=== PATIENT | female | born 1975 | race Caucasian/White ===

== ENCOUNTER 2017-02-28 21:10 | Emergency (ER) | payer OTHER ==
[~2017-02-28] VITALS: Ht 165.1 cm; Wt 85.3 kg
[~2017-02-28 21:10] MED LIST: ABILIFY 10 MG10 MG PO; ADDERALL10 MG PO; ALPRAZOLAM1 MG PO; AMOXIL500 MG PO; BUSPIRONE HCL15 MG PO; CLINDAMYCIN HY300 MG PO; CLONAZEPAM0.5 MG PO; COGENTIN2 MG/2 ML PO; GABAPENTIN300 M2 PO; GEODON 40MG CAP40 MG PO; HALDOL DEC100 MG/1 M IM; HALDOL5 MG/1 ML PO; LAMICTAL200 M1 PO; LAMICTAL25 M1 PO; LAMOTRIGINE200 MG PO; LATUDA40 MG PO; LITHIUM CARBON300 M3 PO; OLANZAPINE20 MG PO; PERCOCET 325 MG1 TA2 PO; VALACYCLOVIR1 GM PO; VENLAFAXINE HCL25 MG PO; VIIBRYD40 MG PO; XANAX2 MG PO
--- NOTE | 2017-02-28 23:22 | ED HEADACHE COMPLAINT ---
History of Present Illness General Chief Complaint: General Adult Stated Complaint: PT SAYS SHE HAS A ANEURYSM ON THE BRAIN Source: patient, old records Exam Limitations: no limitations Vital Signs & Intake/Output Vital Signs & Intake/Output Vital Signs Date Time Temp Pulse Resp B/P B/P Pulse O2 O2 Flow FiO2 Mean Ox Delivery Rate 02/28 2350 97.2 95 18 145/69 96 02/28 2124 99.0 105 16 150/95 99 Room Air ED Intake and Output 03/01 0000 02/28 1200 Intake Total Output Total Balance Patient 188 lb Weight Weight Reported by Patient Measurement Method Allergies Uncoded Allergies: DOG SHAMPOO (HIVES AND ITCHING ALL OVER 03/31/15) Reconcile Medications Benztropine Mesylate (Cogentin) (Unknown Strength) AMPUL (Unknown Dose) PO DAILY MENTAL HEALTH (Reported) Gabapentin 300 MG CAPSULE 1 CAP PO Q6 MENTAL HEALTH (Reported) Haloperidol Decanoate (Haldol Decanoate 100) (Unknown Strength) AMPUL (Unknown Dose) IM Q30D MENTAL HEALTH (Reported) Haloperidol Lactate (Haldol) 5 MG/1 ML AMPUL 5 MG PO BID MENTAL HEALTH ( Reported) Lamotrigine (Lamictal) 25 MG TABLET 50 MG PO MENTAL HEALTH (Reported) Dunn Carbonate (Dunn Carbonate 300MG Tab.) 300 MG CAPSULE 1 TAB PO BID BIPOLAR (Reported) Triage Note: TRIAGE: PT TO ED 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 NEUROLOGIST IS DR MAYER, PMD IS DR SHER. C/O BLURRY VISION APPROX 1 HOUR AGO AGAIN REPORTS SEEING COLORED CLUSTERS OF LIGHTS. 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 REPORTS NUMBNESS TO R LEG EARLIER. ABLE TO WALK. SPEAKS IN FULL CLEAR SENTENCES. NEUROS INTACT, PUPILS 3MM AND EQUAL AND REACTIVE TO LIGHT. +PHOTOSENSITIVITY. ALSO CONCERNED OF HYPOGLYCEMIA, ACCUCHECK 91 IN TRIAGE. PT ANXIOUS Triage Nurses Notes Reviewed? yes : No Patient currently breastfeeds: No HPI: Patient states that she has been suffering from a headache for the past 2 days. The pain starts in the back of her head and wraps around to the front. Patient is seeing different colors. There is slight nausea but no vomiting. No fevers or chills. Patient took Fioricet without any relief. Similar symptoms in the past when she's had migraines. Patient did become concerned because she has known AVM on the zaheer and she has not had an MRI of her brain in the past 5 years. Past History Travel History Traveled to [place] past 21 day No Medical History Any Pertinent Medical History? 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 . Hx Contributory? No Review of Systems Review of Systems Constitutional: Reports: no symptoms. Eyes: Reports: see HPI, other (SEEING COLORS). Ears, Nose, Throat, Mouth: Reports: no symptoms. Respiratory: Reports: no symptoms. Cardiovascular: Reports: no symptoms. Gastrointestinal/Abdominal: Reports: see HPI, nausea. Genitourinary: Reports: no symptoms. Musculoskeletal: Reports: neck pain (SWELLING). Skin: Reports: no symptoms. Neurological/Psychological: Reports: see HPI, headache. Hematologic/Endocrine: Reports: no symptoms. Endocrine: Reports: no symptoms. Immunologic/Allergic: Reports: no symptoms. All Other Systems: Reviewed and Negative Physical Exam Physical Exam General Appearance: well developed/nourished, alert, awake, anxious, mild distress Head: atraumatic, normal appearance Eyes: Bilateral: PERRL, EOMI. Ears, Nose, Throat: normal pharynx, normal ENT inspection, hearing grossly normal Neck: normal inspection, supple, full range of motion, NO MENENGEAL SIGNS Respiratory: normal breath sounds, chest non-tender, no respiratory distress, lungs clear Cardiovascular: regular rate/rhythm, normal peripheral pulses Gastrointestinal: normal bowel sounds, soft, non-tender, no organomegaly Back: normal inspection, normal range of motion Extremities: normal inspection, normal capillary refill, normal range of motion, no edema Psychiatric: awake, alert, oriented x 3 Cranial Nerves: normal hearing, normal speech, PERRL Coordination/Gait: normal gait Motor/Sensory: no motor/sensory deficits Skin: intact, normal color, warm/dry Core Measures Severe Sepsis Present: No Septic Shock Present: No Progress Differential Diagnosis: IC mass/tumor, intracranial Hem., migraine ROLLINS, tension ROLLINS Plan of Care: Laboratory Tests 02/28/17 2319: CBC w Diff Cancelled, WBC Cancelled, RBC Cancelled, Hgb Cancelled, Hct Cancelled , MCV Cancelled, MCH Cancelled, RDW Cancelled, Plt Count Cancelled, MPV Cancelled, PUBS MCHC Cancelled, Dunn Cancelled Diagnostic Imaging: Viewed by Me: CT Scan. Discussed w/RAD: CT Scan. Comments: Patient is feeling much better after IM Toradol. Patient does not want blood work. Patient promises to follow up with her neurologist. Departure Departure Disposition: HOME OR SELF CARE Condition: Stable Clinical Impression Primary Impression: Migraine Qualifiers: Migraine type: with aura Status migrainosus presence: without status migrainosus Intractability: not intractable Qualified Code: G43.109 - Migraine with aura, not intractable, without status migrainosus Referrals: NIKKY MANZO,ADALBERTO Cai (PCP/Family) Additional Instructions: FOLLOW UP WITH YOUR NEUROLOGIST RETURN FOR ANY CONCERNS Departure Forms: Customer Survey General Discharge Information
[2017-02-28 23:50] VITALS: BP 145/69
--- NOTE | 2017-02-28 23:55 | CT SCAN REPORT ---
EXAMINATION: CT HEAD WITHOUT CONTRAST CLINICAL INFORMATION: AVM on nico, rule out bleed COMPARISON: 11/21/2028 TECHNIQUE: Contiguous axial imaging was performed from the skull base to vertex without intravenous administration of contrast. DLP: 529.16 mGy-cm FINDINGS: There is no evidence of acute intracranial hemorrhage or territorial infarction. No abnormal mass effect or midline shift is seen. Yuan to white matter differentiation is well preserved. No extra-axial fluid collections are identified. The ventricles are normal in size. There is a subtle tiny ill-defined hyperdensity in the nico measuring approximately 4 mm on image 12/56, potentially representing a small vascular malformation. The osseous structures and soft tissues are normal. There is extensive opacification of the visualized right maxillary sinus and anterior ethmoid air cells. The mastoid air cells are well-aerated. IMPRESSION: No acute intracranial hemorrhage identified. Small ill-defined hyperdensity in the nico may reflect a vascular malformation; comparison with any prior or follow-up MRI would be helpful for further assessment.
== END 2017-02-28 23:52 ==
LOC: ERH 21:10
DX: G43.909 Migraine, unspecified, not intractable, without status migrainosus (principal)
CPT/HCPCS: 96374; J1885

== ENCOUNTER 2017-03-10 06:55 | Emergency (ER) | payer OTHER ==
--- NOTE | 2017-03-10 07:13 | ED HEADACHE COMPLAINT ---
History of Present Illness General Chief Complaint: Headache Stated Complaint: ?ROLLINS X 9 DAYS Source: patient, old records Exam Limitations: no limitations Vital Signs & Intake/Output Vital Signs & Intake/Output Vital Signs Date Time Temp Pulse Resp B/P B/P Pulse O2 O2 Flow FiO2 Mean Ox Delivery Rate 03/10 0754 95.7 90 18 124/84 97 Room Air 03/10 0700 96.7 77 20 155/100 98 Allergies Uncoded Allergies: DOG SHAMPOO (HIVES AND ITCHING ALL OVER 03/31/15) Reconcile Medications Albuterol Sulfate (Proair Hfa) 90 MCG HFA.AER.AD 2 PUF INH Q4-6 PRN PRN ASTHMA Benztropine Mesylate (Cogentin) (Unknown Strength) AMPUL (Unknown Dose) PO DAILY MENTAL HEALTH (Reported) Gabapentin 300 MG CAPSULE 1 CAP PO Q6 MENTAL HEALTH (Reported) Haloperidol Decanoate (Haldol Decanoate 100) (Unknown Strength) AMPUL (Unknown Dose) IM Q30D MENTAL HEALTH (Reported) Haloperidol Lactate (Haldol) 5 MG/1 ML AMPUL 5 MG PO BID MENTAL HEALTH ( Reported) Lamotrigine (Lamictal) 25 MG TABLET 50 MG PO MENTAL HEALTH (Reported) [place]stack Carbonate ([place]stack Carbonate 300MG Tab.) 300 MG CAPSULE 1 TAB PO BID BIPOLAR (Reported) Triage Note: PER PT MIGRAINE X 9 DAYS RADIATING TO MOUTH AND FACE. Triage Nurses Notes Reviewed? yes : No Patient currently breastfeeds: No HPI: Patient presents with a throbbing aching headache to the posterior portion of her head from front to the front of her head. The pain is been constant for the past 9 days. Patient was seen in the emergency Department 10 days ago and received a shot of Toradol and she states that took the pain away within the pain came back the next day. Patient has an appointment to see her neurologist next week. Patient is due to have an MRA. Patient ran out of her Vicodin. There are no fevers or chills. There are no aggravating or mitigating factors. There is no photophobia. There is no phonophobia. There is no nausea or vomiting. The pain is constant. Past History Travel History Traveled to [place] past 21 day No Medical History Any Pertinent Medical History? 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 . Hx Contributory? No Review of Systems Review of Systems Constitutional: Reports: no symptoms. Eyes: Reports: no symptoms. Ears, Nose, Throat, Mouth: Reports: no symptoms. Respiratory: Reports: no symptoms. Cardiovascular: Reports: no symptoms. Gastrointestinal/Abdominal: Reports: no symptoms. Musculoskeletal: Reports: no symptoms. Neurological/Psychological: Reports: see HPI, headache. Hematologic/Endocrine: Reports: no symptoms. Immunologic/Allergic: Reports: no symptoms. Physical Exam Physical Exam General Appearance: well developed/nourished, alert, awake, mild distress Head: atraumatic, normal appearance Eyes: Bilateral: PERRL, EOMI. Ears, Nose, Throat: normal pharynx, normal ENT inspection, hearing grossly normal Neck: normal inspection, supple, full range of motion Respiratory: normal breath sounds, chest non-tender, no respiratory distress, lungs clear Cardiovascular: regular rate/rhythm, normal peripheral pulses Back: normal inspection, normal range of motion Psychiatric: awake, alert, oriented x 3 Cranial Nerves: normal hearing, normal speech, PERRL Coordination/Gait: normal gait Core Measures Severe Sepsis Present: No Septic Shock Present: No Progress Differential Diagnosis: intracranial Hem., migraine ROLLINS, subarach. Hem., tension ROLLINS Plan of Care: Current Medications Sig/Yaneth Start time Last Medication Dose Stop Time Status Admin Ketorolac 60 MG ONCE ONE 03/10 715 UNVr Tromethamine 03/10 716 (Toradol) Comments: PAIN DECREASED TO 3 OUT OF 10 POST IM TORADOL. Departure Departure Disposition: HOME OR SELF CARE Condition: Stable Clinical Impression Primary Impression: Headache Referrals: TARIK MANUEL MD (PCP/Family) Additional Instructions: RETURN IF SYMPTOMS WORSEN OR FOR ANY CONCERNS Departure Forms: Customer Survey General Discharge Information Prescriptions: Current Visit Scripts Albuterol Sulfate (Proair Hfa) 2 PUF INH Q4-6 PRN PRN ASTHMA #1 INHAL
[2017-03-10 07:54] VITALS: BP 124/84
[2017-03-10] MEDS ORDERED: PROAIR HFA8.5 GM INH (07:54)
== END 2017-03-10 08:12 ==
LOC: ERH 06:55
DX: R51 Headache (principal)
CPT/HCPCS: 96372; J1885

== ENCOUNTER 2017-03-12 16:58 | Emergency (ER) | payer OTHER ==
[~2017-03-12] VITALS: Ht 165.1 cm; Wt 86.2 kg
[~2017-03-12 16:58] MED LIST changes: +PROAIR HFA8.5 GM INH
[2017-03-12 17:06] VITALS: BP 131/81
--- NOTE | 2017-03-12 19:08 | ED GENERAL ADULT ---
History of Present Illness General Chief Complaint: General Adult Stated Complaint: SOB, ZANAX WITHDRAWAL Source: patient Exam Limitations: no limitations Vital Signs & Intake/Output Vital Signs & Intake/Output Vital Signs Date Time Temp Pulse Resp B/P B/P Pulse O2 O2 Flow FiO2 Mean Ox Delivery Rate 03/12 1706 97.6 81 16 131/81 97 Room Air ED Intake and Output 03/13 0000 03/12 1200 Intake Total Output Total Balance Patient 190 lb Weight Weight Reported by Patient Measurement Method Allergies Uncoded Allergies: DOG SHAMPOO (HIVES AND ITCHING ALL OVER 03/31/15) Reconcile Medications Albuterol Sulfate (Proair Hfa) 90 MCG HFA.AER.AD 2 PUF INH Q4-6 PRN PRN wheeze Albuterol Sulfate (Proair Hfa) 90 MCG HFA.AER.AD 2 PUF INH Q4-6 PRN PRN ASTHMA Alprazolam (Xanax) 1 MG TABLET 1 TAB PO TIDPRN PRN anxiety ten...[id number] Amoxicillin/Potassium Clav (Augmentin 875-125 Tablet) 875 MG-125 MG TABLET 1 TAB PO BID bronchitis Benztropine Mesylate (Cogentin) (Unknown Strength) AMPUL (Unknown Dose) PO DAILY MENTAL HEALTH (Reported) Cyclobenzaprine HCl 10 MG TABLET 1 TAB PO 4 TIMES/DAY PRN MUSCLE SPASM twenty Gabapentin 300 MG CAPSULE 1 CAP PO Q6 MENTAL HEALTH (Reported) Haloperidol Decanoate (Haldol Decanoate 100) (Unknown Strength) AMPUL (Unknown Dose) IM Q30D MENTAL HEALTH (Reported) Haloperidol Lactate (Haldol) 5 MG/1 ML AMPUL 5 MG PO BID MENTAL HEALTH ( Reported) Ibuprofen 600 MG TABLET 1 TAB PO TID PRN pain with food Lamotrigine (Lamictal) 25 MG TABLET 50 MG PO MENTAL HEALTH (Reported) Saxton Carbonate (Saxton Carbonate 300MG Tab.) 300 MG CAPSULE 1 TAB PO BID BIPOLAR (Reported) Prednisone 50 MG TABLET 1 TAB PO DAILY bronchitis Triage Note: PT REPORTS HER RIGHT SIDE OF HER BODY IS GETTING WEAK SHE FEELS LIKE SHE CAN'T BREATH AND SHE HAS NAUSEA AND BLURRY VISION. PT STATES SHE THINKS SHE IS IN XANANX WITHDRAWEL. Triage Nurses Notes Reviewed? yes Onset: Gradual Duration: hour(s): Timing: recent history Injury Environment: home Severity: mild, moderate Modifying Factors: Improves With: rest. Associated Symptoms: AGITATION : No Patient currently breastfeeds: No HPI: 41 -year-old gentleman brought in by police with a concern for benzo and opioid withdrawal. The patient states that he last took Xanax 2 days ago. He also had been using methadone and heroin. He states his last use of those substances was late last week. He states that he is, "jumping out of my skin." He notes photophobia, myalgia, mild diaphoresis and nausea. He denies SI or HI hallucinations seizures Past History Travel History Traveled to [place] past 21 day No Medical History Any Pertinent Medical History? 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 . Hx Contributory? No Review of Systems Review of Systems Constitutional: Reports: no symptoms. EENTM: Reports: no symptoms. Respiratory: Reports: no symptoms. Cardiovascular: Reports: no symptoms. GI: Reports: no symptoms. Genitourinary: Reports: no symptoms. Musculoskeletal: Reports: no symptoms. Skin: Reports: no symptoms. Neurological/Psychological: Reports: no symptoms. Hematologic/Endocrine: Reports: no symptoms. Immunologic/Allergic: Reports: no symptoms. All Other Systems: Reviewed and Negative Physical Exam Physical Exam General Appearance: well developed/nourished, mild distress Head: atraumatic, normal appearance Eyes: Bilateral: normal appearance, PERRL, EOMI. Ears, Nose, Throat: normal pharynx, normal ENT inspection Neck: normal inspection, supple, full range of motion Respiratory: normal breath sounds, chest non-tender, no respiratory distress, quiet respiration, lungs clear Cardiovascular: regular rate/rhythm Gastrointestinal: normal bowel sounds, soft, non-tender Back: normal inspection Extremities: normal capillary refill, normal range of motion, no edema, ERYTHEMATOUS RAISED RASH CONSISTENT WITH CONTACT DERMATITIS OF HIS ( LATERAL FOREARMS.) Neurologic/Psych: no motor/sensory deficits, awake, alert, oriented x 3 Skin: intact, normal color Core Measures ACS in differential dx? No CVA/TIA Diagnosis: No Severe Sepsis Present: No Septic Shock Present: No Progress Differential Diagnoses I considered the following diagnoses in my evaluation of the patient: Benzo versus opiate withdrawal versus other Plan of Care: Patient given one dose of long-acting benzodiazepine, Librium, patient also given clonidine Zofran. He also notes that he has a mild case of poison miguel a on his bilateral arms. One dose of Benadryl was given for his itching. Patient to return if his symptoms recur. Initial ED EKG: none Departure Departure Disposition: HOME OR SELF CARE Condition: Stable Clinical Impression Primary Impression: Heroin withdrawal Secondary Impressions: Benzodiazepine withdrawal, Poison miguel a dermatitis Referrals: TARIK MANUEL MD (PCP/Family) Departure Forms: Customer Survey General Discharge Information Prescriptions: Current Visit Scripts Alprazolam (Xanax) 1 TAB PO TIDPRN PRN anxiety #10 TAB ten...[id number] Prednisone 1 TAB PO DAILY #5 TAB Amoxicillin/Potassium Clav (Augmentin 875-125 Tablet) 1 TAB PO BID #20 TAB Cyclobenzaprine HCl 1 TAB PO 4 TIMES/DAY PRN MUSCLE SPASM #20 TAB Ref 1 twenty Ibuprofen 1 TAB PO TID PRN pain #30 TAB with food Albuterol Sulfate (Proair Hfa) 2 PUF INH Q4-6 PRN PRN wheeze #1 INHAL Ref 2 Critical Care Note Critical Care Note Critical Care Time: non-applicable
[2017-03-12] MEDS ORDERED: CYCLOBENZAPRINE10 M1 PO (19:21)
[2017-03-12] MEDS ORDERED: IBUPROFEN600 M1 PO (19:21)
[2017-03-12] MEDS ORDERED: XANAX1 M1 PO (19:21)
[2017-03-12] MEDS ORDERED: PREDNISONE50 M1 PO (19:21)
[2017-03-12] MEDS ORDERED: PROAIR HFA8.5 GM INH (19:21)
[2017-03-12] MEDS ORDERED: AUGMENTIN 875-1 EACH PO (19:21)
== END 2017-03-12 19:36 ==
LOC: ERH 16:58
DX: F11.23 Opioid dependence with withdrawal (principal); F13.239 Sedative, hypnotic or anxiolytic dependence with withdrawal, unspecified; L23.7 Allergic contact dermatitis due to plants, except food

== ENCOUNTER 2017-03-15 13:02 | Emergency (ER) | payer OTHER ==
[~2017-03-15] VITALS: Ht 167.6 cm; Wt 72.6 kg
[~2017-03-15 13:02] MED LIST changes: +AUGMENTIN 875-1 EACH PO; +CYCLOBENZAPRINE10 M1 PO; +IBUPROFEN600 M1 PO; +PREDNISONE50 M1 PO; +XANAX1 M1 PO
[2017-03-15 13:32] VITALS: BP 126/79
== END 2017-03-15 14:55 | disposition admitted as inpatient to this hospital (09) ==
LOC: ERH 13:02
DX: F41.0 Panic disorder [episodic paroxysmal anxiety] (principal); Z53.21 Procedure and treatment not carried out due to patient leaving prior to being seen by health care provider

== ENCOUNTER 2017-03-28 02:39 | Emergency (ER) | payer OTHER ==
[~2017-03-28] VITALS: Ht 165.1 cm; Wt 88.5 kg
--- NOTE | 2017-03-28 02:48 | ED DYSPNEA/ASTHMA COMPLAINT ---
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 Source: patient, old records Exam Limitations: no limitations Vital Signs & Intake/Output Vital Signs & Intake/Output Vital Signs Date Time Temp Pulse Resp B/P B/P Pulse O2 O2 Flow FiO2 Mean Ox Delivery Rate 03/28 0556 97.5 72 18 131/84 95 Nasal 2.0L Cannula 03/28 0532 96.9 79 18 137/78 95 Nasal 2.0L Cannula 03/28 0351 77 18 89 Room Air 03/28 0301 92 03/28 0300 96 Room Air 03/28 0246 96.7 100 20 145/97 96 Room Air Allergies Uncoded Allergies: DOG SHAMPOO (HIVES AND ITCHING ALL OVER 03/31/15) Reconcile Medications Albuterol Sulfate (Proair Hfa) 90 MCG HFA.AER.AD 2 PUF INH Q4-6 PRN PRN ASTHMA Lamotrigine (Lamictal) 25 MG TABLET 50 MG PO MENTAL HEALTH (Reported) Prednisone 50 MG TABLET 1 TAB PO DAILY bronchitis Ziprasidone Hydrochloride (Geodon) 20 MG CAPSULE 1 CAP PO BID BIPOLAR ( Reported) Triage Note: TRIAGE: PATIENT REPORTS BRONCHITIS X 3 WEEKS W/ COUGHING, TONIGHT "VERY SOB." +SMOKER. PATIENT ANXIOUS IN TRIAGE, REPORTS HX ANXIETY. NOTED W/ COUGHING IN TRIAGE. PATIENT CURRENTLY TAKING PREDNISONE X 5 DAYS, USING ADVAIR AND ALBUTEROL W/O RELIEF. Triage Nurses Notes Reviewed? yes : No Patient currently breastfeeds: No HPI: Patient comes to the emergency Department with complaints of shortness of breath and wheezing. Patient has been seen a few times over the past 2 weeks and diagnosed with bronchitis. Patient continues to smoke. Patient states that she has been using her nebulizer at home. Patient states that she found some leftover prednisone so took 1 pill earlier today. Positive chest tightness but no chest pain. Positive dyspnea on exertion. No orthopnea. No fevers or chills. Productive cough with yellow sputum. No nausea or vomiting. No headache. Past History Travel History Traveled to [place] past 21 day No Medical History Any Pertinent Medical History? see below for history Neurological: AVM EENT: NONE Cardiovascular: NONE Respiratory: NONE Gastrointestinal: HYPOGLYCEMIA Hepatic: NONE Renal: NONE Musculoskeletal: NONE Psychiatric: anxiety, bipolar disease Endocrine: Hypoglycemia Blood Disorders: NONE Cancer(s): NONE SIGNAL TESTER/Reproductive: NONE History of MRSA: No History of VRE: No History of CDIFF: No Tetanus Vaccine: 07/23/16 Surgical History Surgical History: none, N Psychosocial History Who do you live with Mother What is your primary language Yakut Tobacco Use: Current Daily Use Daily Tobacco Use Amount/Type: => 5 Cigarettes daily ETOH Use: denies use Illicit Drug Use: denies illicit drug use Family History Family History, If Any: FATHER (Father CAD- 1st diagnosed in 40s; Mother and Sister alive & well; GM with DM). . Hx Contributory? No Review of Systems Review of Systems Constitutional: Reports: no symptoms. EENTM: Reports: no symptoms. Respiratory: Reports: see HPI, cough, short of breath, sputum production, wheezing. Cardiovascular: Reports: no symptoms. GI: Reports: no symptoms. Genitourinary: Reports: no symptoms. Musculoskeletal: Reports: no symptoms. Skin: Reports: no symptoms. Neurological/Psychological: Reports: no symptoms. Hematologic/Endocrine: Reports: no symptoms. Immunologic/Allergic: Reports: no symptoms. All Other Systems: Reviewed and Negative Physical Exam Physical Exam General Appearance: well developed/nourished, alert, awake, anxious, moderate distress Head: atraumatic, normal appearance Eyes: Bilateral: PERRL, EOMI. Ears, Nose, Throat: normal pharynx, normal ENT inspection Neck: normal inspection, supple, full range of motion Respiratory: normal breath sounds, chest non-tender, no respiratory distress, lungs clear Cardiovascular: regular rate/rhythm, normal peripheral pulses Gastrointestinal: normal bowel sounds, soft, non-tender, no organomegaly Extremities: normal inspection, normal capillary refill, normal range of motion, no edema Neurologic/Psych: no motor/sensory deficits, awake, alert, oriented x 3, normal mood/affect Skin: intact, normal color, warm/dry Lymphatic: no anterior cervical iker Core Measures ACS in differential dx? No Severe Sepsis Present: No Septic Shock Present: No Progress Differential Diagnosis: asthma, bronchitis, COPD, pulmonary embolism, pneumonia, pneumothorax Plan of Care: Orders Procedure Date/time Status HUMAN BETA HCG SCREEN 03/28 247 Complete D-DIMER 03/28 247 Complete COMPREHENSIVE METABOLIC PANEL 03/28 247 Complete CBC WITHOUT DIFFERENTIAL 03/28 247 Complete Current Medications Sig/Yaneth Start time Last Medication Dose Stop Time Status Admin Prednisone 40 MG ONCE ONE 03/28 0300 CAN 03/28 030 Laboratory Tests 03/28/17 0421: D-Dimer 323 H 03/28/17 0347: Anion Gap 7, Estimated GFR > 60, BUN/Creatinine Ratio 20.0, Glucose 92, Calcium 9.1, Total Bilirubin 0.6, AST 13 L, ALT 26, Alkaline Phosphatase 62, Total Protein 6.5, Albumin 3.6, Globulin 2.9, Albumin/Globulin Ratio 1.2, Total Beta HCG NEGATIVE, CBC w Diff MAN DIFF ORDERED, RBC 4.37, MCV 95.3, MCH 31.6 H, RDW 14.7 H, MPV 7.5, Gran % 56.4, Lymphocytes % 25.9, Monocytes % 4.0, Eosinophils % 9.5 H, Basophils % 4.2 H, Absolute Granulocytes 9.3 H, Segmented Neutrophils 55, Absolute Lymphocytes 4.3 H, Lymphocytes 32, Monocytes 5, Absolute Monocytes 0.7 H, Eosinophils 8 H, Absolute Eosinophils 1.6, Absolute Basophils 0.7, Platelet Estimate ADEQUATE, Polychromasia 1+, Ovalocytes FEW, PUBS MCHC 33.2, Fld Total RBCs Counted 100 Diagnostic Imaging: Viewed by Me: CT Scan. Discussed w/RAD: CT Scan. Radiology Impression: PATIENT: DAVID STRE[address] PRESENT AGE: 41 PATIENT ACCOUNT NO: [id number] : 74 LOCATION: [facility] ORDERING PHYSICIAN: YONATAN PEREZ MD SERVICE DATE: 03/28/17 EXAM TYPE: CAT - CTA CHEST-PULMONARY EMBOLISM EXAMINATION: CT ANGIOGRAM OF THE CHEST WITH AND WITHOUT CONTRAST (CT PULMONARY ANGIOGRAM FOR PE) CLINICAL INFORMATION: Shortness of breath, wheeze, chest pain. Positive d-dimer. COMPARISON: Chest radiograph TECHNIQUE: Prior to contrast administration, noncontrast localization images were obtained. Subsequently, multidetector volumetric imaging was performed from the thoracic inlet to below the diaphragms following the administration of 84 mL Optiray 350 intravenous contrast. No contrast reaction reported. Sagittal, coronal, and MIP oblique sagittal reformatted images were obtained on the CT workstation, uploaded to PACS, and reviewed. Total exam dose- length product 448 mGy-cm. FINDINGS: QUALITY OF STUDY/CONTRAST BOLUS: Satisfactory PULMONARY ARTERIES: No central or segmental pulmonary emboli. THORACIC AORTA: No aneurysm or dissection. LUNG: The central airways are patent. Mild paraseptal emphysema in the right upper lobe. There is dependent consolidative and groundglass opacity bilaterally at the lung bases. Linear atelectasis in the lingula.. PLEURA: No pleural effusion or pneumothorax. MEDIASTINUM: Normal heart size. No pericardial effusion. No hilar or mediastinal lymphadenopathy. No evidence of septal bowing or right heart strain. CHEST WALL/ AXILLA: No axillary or internal mammary lymphadenopathy. OSSEOUS STRUCTURES: No acute or suspicious osseous abnormality. Mild degenerative changes. UPPER ABDOMEN: Unremarkable. IMPRESSION: 1. No pulmonary embolism. 2. Dependent groundglass and consolidative opacities in both lungs favor subsegmental atelectasis. Infectious process is fully excluded. VTE: negative DICTATED BY: GISELE DUFF MD DATE/TIME DICTATED:03/28/17542 SIDER MECHANIC: FABY DATE/TIME TRANSCRIBED:03/28/17542 CONFIDENTIAL, DO NOT COPY WITHOUT APPROPRIATE AUTHORIZATION. <Electronically signed in Other Vendor System> SIGNED BY: GISELE DUFF MD 03/28/17 0550 Initial ED EKG: none Comments: Patient is feeling much better. Patient just finished a course of Augmentin yesterday. Patient is stable for discharge. Departure Departure Disposition: HOME OR SELF CARE Condition: Stable Clinical Impression Primary Impression: Bronchitis Referrals: TARIK MANUEL MD (PCP/Family) Additional Instructions: RETURN IF SYMPTOMS WORSEN OR FOR ANY CONCERNS Departure Forms: Customer Survey General Discharge Information Critical Care Note Critical Care Note Critical Care Time: non-applicable
[2017-03-28] MEDS ORDERED: GEODON20 M1 PO (02:49)
[2017-03-28 03:53] LABS: ABSOLUTE BASOPHIL COUNT 0.7 /CUMM (0.0-0.2); ABSOLUTE EOSINOPHIL COUNT 1.6 /CUMM (0.0-0.7); ABSOLUTE GRANULOCYTE CT 9.3 /CUMM (1.4-6.5); ABSOLUTE LYMPH COUNT 4.3 /CUMM (1.2-3.4); ABSOLUTE MONOCYTE COUNT 0.7 /CUMM (0.10-0.60); BASOPHIL % 4.2 % (0.0-2.0); EOSINOPHIL % 9.5 % (0-5); GRANULOCYTE % 56.4 % (42.2-75.2); HEMATOCRIT 41.7 % (37-47); MEAN CORPUSCULAR HGB 31.6 PG (27.0-31.0); MEAN CORPUSCULAR HGB CONC 33.2 G/DL (33.0-37.0); MEAN CORPUSCULAR VOLUME 95.3 FL (81.0-99.0); MEAN PLATELET VOLUME 7.5 FL (7.4-10.4); PLATELET COUNT 316 /CUMM (130-400); RBC DISTRIBUTION WIDTH 14.7 % (11.5-14.5); RED BLOOD CELL CT 4.37 /CUMM (4.20-5.40); WHITE BLOOD CELL COUNT 16.5 /CUMM (4.8-10.8)
--- NOTE | 2017-03-28 05:50 | CT SCAN REPORT ---
EXAMINATION: CT ANGIOGRAM OF THE CHEST WITH AND WITHOUT CONTRAST (CT PULMONARY ANGIOGRAM FOR PE) CLINICAL INFORMATION: Shortness of breath, wheeze, chest pain. Positive d-dimer. COMPARISON: Chest radiograph 07/26/2014 TECHNIQUE: Prior to contrast administration, noncontrast localization images were obtained. Subsequently, multidetector volumetric imaging was performed from the thoracic inlet to below the diaphragms following the administration of 84 mL Optiray 350 intravenous contrast. No contrast reaction reported. Sagittal, coronal, and MIP oblique sagittal reformatted images were obtained on the CT workstation, uploaded to PACS, and reviewed. Total exam dose-length product 448 mGy-cm. FINDINGS: QUALITY OF STUDY/CONTRAST BOLUS: Satisfactory PULMONARY ARTERIES: No central or segmental pulmonary emboli. THORACIC AORTA: No aneurysm or dissection. LUNG: The central airways are patent. Mild paraseptal emphysema in the right upper lobe. There is dependent consolidative and groundglass opacity bilaterally at the lung bases. Linear atelectasis in the lingula.. PLEURA: No pleural effusion or pneumothorax. MEDIASTINUM: Normal heart size. No pericardial effusion. No hilar or mediastinal lymphadenopathy. No evidence of septal bowing or right heart strain. CHEST WALL/AXILLA: No axillary or internal mammary lymphadenopathy. OSSEOUS STRUCTURES: No acute or suspicious osseous abnormality. Mild degenerative changes. UPPER ABDOMEN: Unremarkable. IMPRESSION: 1. No pulmonary embolism. 2. Dependent groundglass and consolidative opacities in both lungs favor subsegmental atelectasis. Infectious process is fully excluded. VTE: negative
[2017-03-28 05:56] VITALS: BP 131/84
== END 2017-03-28 06:19 ==
LOC: ERH 02:39
PROVIDERS: Emergency Medicine
DX: J40 Bronchitis, not specified as acute or chronic (principal); F17.210 Nicotine dependence, cigarettes, uncomplicated
CPT/HCPCS: 1263; 1395; J2930

== ENCOUNTER 2017-04-26 17:52 | Inpatient (IN) | payer OTHER ==
[~2017-04-26] VITALS: Ht 157.5 cm; Wt 85.7 kg
[~2017-04-26 17:52] MED LIST changes: +GEODON20 M1 PO
--- NOTE | 2017-04-26 17:55 | ED PSYCHIATRIC COMPLAINT ---
See Addendum History of Present Illness General Chief Complaint: Psychiatric Related Complaint Stated Complaint: BIBA +SI Source: patient, EMS, police Exam Limitations: no limitations Vital Signs & Intake/Output Vital Signs & Intake/Output Vital Signs Date Time Temp Pulse Resp B/P B/P Pulse O2 O2 Flow FiO2 Mean Ox Delivery Rate 04/27 0716 96.1 84 18 137/92 97 Room Air 04/27 0017 96.8 91 20 146/88 98 Room Air 04/26 2240 980.2 88 18 142/74 99 Room Air 04/26 2204 95 04/26 2005 Room Air 04/26 1837 96.9 115 20 160/100 95 Room Air Allergies Coded Allergies: haloperidol (From HALDOL) ("seizure like coma sleep" 04/26/17) Uncoded Allergies: DOG SHAMPOO (HIVES AND ITCHING ALL OVER 03/31/15) Reconcile Medications Albuterol Sulfate (Proair Hfa) 90 MCG HFA.AER.AD 2 PUF INH Q4-6 PRN PRN ASTHMA Lamotrigine (Lamictal) 25 MG TABLET 50 MG PO MENTAL HEALTH (Reported) Prednisone 50 MG TABLET 1 TAB PO DAILY bronchitis Ziprasidone Hydrochloride (Geodon) 20 MG CAPSULE 1 CAP PO BID BIPOLAR ( Reported) Triage Nurses Notes Reviewed? yes Onset: Abrupt Duration: hour(s): (2-3), continues in ED, getting worse Timing: single episode today Severity: mild, moderate Associated Symptoms: anxiety, suicidal ideation LMP (ages 10-50): unknown : No Patient currently breastfeeds: No HPI: 41-year-old female history of bipolar disorder brought in by ambulance and police for evaluation of aggressive behavior. Police reports that patient was at work's behaving very hyperactive and aggressive. 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 Patient has a history of bipolar disorder and reports that she currently feels manic. She denies any drug use, alcohol use or any other associated symptoms. patient reports that she feels completely fine and thinks that her reaction was due to drinking too much coffee however she does repeatedly say that she feels manic. She denies any previous suicide attempts. No chest pain, shortness of breath, abdominal pain, urinary symptoms or any other associated symptoms. (RAUDEL DENTON PA-C) Past History Travel History Traveled to [place] past 21 day No Medical History Any Pertinent Medical History? 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 . Hx Contributory? Yes (RAUDEL DENTON PA-C) Review of Systems Review of Systems Constitutional: Reports: no symptoms. EENTM: Reports: no symptoms. Respiratory: Reports: no symptoms. Cardiovascular: Reports: no symptoms. GI: Reports: no symptoms. Genitourinary: Reports: no symptoms. Musculoskeletal: Reports: no symptoms. Skin: Reports: no symptoms. Neurological/Psychological: Reports: see HPI, anxiety, emotional problems, other (nikolas). Hematologic/Endocrine: Reports: no symptoms. Immunologic/Allergic: Reports: no symptoms. All Other Systems: Reviewed and Negative (RAUDEL DENTON PA-C) Physical Exam Physical Exam General Appearance: well developed/nourished, no apparent distress, alert, awake , anxious Neurological/Psychiatric: no motor/sensory deficits, awake, alert, anxious, hyperactive, fidgeting Appearance/Memory/Insight: appropriate appearance, appropriate insight, denies illness, neat Behavoir/Eye Contact/Speech: cooperative, increased rate of speech, good eye contact Thoughts/Hallucinations: normal thought pattern, no apparent hallucination Comments: General: Hemodynamically stable. Afebrile. Well-developed well-nourished person in no acute distress. Head: Atraumatic, normocephalic Eyes: EOMI bilaterally, PERRLA, conjunctiva are not injected, no discharge, no nystagmus, fundus grossly normal bilaterally Nose: Atraumatic, no rhinorrhea, mucosa is not erythematous, no epistaxis. Sinuses are non-tender Ears: TM pearly [place] color bilaterally, external canal is clear, no discharge, hearing is normal Mouth: Appropriate dentition, no gingival bleeding, moist mucus membranes, no oral lesions, tonsils not erythematous or enlarged and free of exudate. Uvula rises midline. Neck: Supple, full active ROM, no lymphadenopathy, no midline tenderness to palpation, no thyromegaly, no tracheal deviation. Back: Non-tender, full active ROM, no scoliosis, no CVA tenderness Cardiovascular: regular rate and rhythm, no murmurs, rubs, or gallops. No JVD Respiratory: Chest is nontender. Regular respiratory rate and effort. No accessory muscle use. Lungs clear to auscultation bilaterally. Abdomen: Soft, non-tender, non-distended, no organomegaly. No rebound tenderness or guarding. Normoactive bowel sounds. Extremities: No edema. No gross deformities. No joint swelling. No calf swelling or tenderness. Full active and passive ROM. Strength 5/5 in upper and lower extremities. Peripheral pulses 2+ bilaterally, Patellar DTR 2+ Neuro: No confusion. Motor and sensory function is intact. Appropriate gait. Cerebellar function intact. Skin: Warm and dry. Appropriate turgor. No lesions or bruising. No appreciable rash on exposed skin. SAD PERSONS Done? patient not suicidal (pt denies si) (BERTIN RICO,RAUDEL) Progress Differential Diagnosis: dementia, drug intoxication, drug overdose, drug withdrawal, electrolyte abnormality, encephalitis, hypothyroidism, bipolar disorder, depression, anxiety disorder Plan of Care: Orders Procedure Date/time Status Regular Diet 04/27 B Active Continuous Observation Monitor 04/26 1804 Active URINE 04/26 1804 Complete URINE DRUG SCREEN FOR ER ONLY 04/26 1804 Complete URINALYSIS 04/26 1804 Complete ETHANOL 04/26 1804 Complete COMPREHENSIVE METABOLIC PANEL 04/26 1804 Complete CBC WITHOUT DIFFERENTIAL 04/26 1804 Complete ED CRISIS PSYCH CONSULT 04/26 1804 Active Current Medications Sig/Yaneth Start time Last Medication Dose Stop Time Status Admin Lorazepam 2 MG ONCE ONE 04/27 0900 UNVr (Ativan) 04/27 09 Haloperidol 0 .STK-MED ONE 04/26 1953 CAN (Haldol) Lorazepam 1 MG ONCE ONE 04/26 1945 CAN (Ativan) 04/26 1946 Laboratory Tests 04/26/171932: Urine Opiates Screen < 100.00, Methadone Screen < 40, Barbiturate Screen > 800 H, Ur Phencyclidine Scrn < 6.00, Amphetamines Screen 120, U Benzodiazepines Scrn < 85, Urine Cocaine Screen < 50, Urine Cannabis Screen 79.90 H, Urine Color YEL , Urine Clarity HAZY H, Urine pH 6.0, Ur Specific [place] 1.015, Urine Protein NEG, Urine Ketones NEG, Urine Nitrite NEG, Urine Bilirubin NEG, Urine Urobilinogen 0.2, Ur Leukocyte Esterase NEG, Ur Microscopic SEDIMENT EXAMINED, Urine RBC 5-10 H, Ur Epithelial Cells MANY H, Urine Bacteria RARE H, Urine Hemoglobin LARGE H, Urine Glucose NEG, Urine Test NEGATIVE 04/26/17 1830: Anion Gap 9, Estimated GFR > 60, BUN/Creatinine Ratio 14.4, Glucose 103 H, Calcium 9.9, Total Bilirubin 0.3, AST 20, ALT 31, Alkaline Phosphatase 63, Total Protein 7.1, Albumin 4.2, Globulin 2.9, Albumin/Globulin Ratio 1.4, CBC w Diff NO MAN DIFF REQ, RBC 4.60, MCV 94.6, MCH 31.3 H, RDW 14.4, MPV 7.7, Gran % 57.4 , Lymphocytes % 33.7, Monocytes % 6.0, Eosinophils % 2.7, Basophils % 0.2, Absolute Granulocytes 7.5 H, Absolute Lymphocytes 4.4 H, Absolute Monocytes 0.8 H, Absolute Eosinophils 0.3, Absolute Basophils 0, PUBS MCHC 33.1, Serum Alcohol < 10.0 Patient will have basic blood work and urine to clear her for crisis evaluation. Patient is being papered by police. Continuous observation monitor ordered. Crisis consult put in. We'll follow up on lab results. 7:41 PM: Patient is becoming increasingly agitated and is pacing around the room. She has been flashing people in the hallway repeatedly yelling out. She is unable to sit still and his current constantly playing with inserts in the room. She'll be given 2 of Ativan 50 Benadryl IM. Patient requested a breathing treatment due to wheezing. She reports she has an albuterol inhaler at home that she uses 3 times a day. No wheezing was noted on exam. Patient was given a breathing treatment and reported feeling better. Basic blood work is within normal limits. Patient is positive for cannabis and barbiturates in her U tox. She takes Fioricet as needed for headaches. Patient is medically cleared to be seen by crisis. (RAUDEL DENTON PA-C) Hand-Off Endorsed To: MINDA GRECO MD Endorsed Time: 2238 Pending: consult (crisis) (RAUDEL DENTON PA-C) Hand-Off Endorsed To: MADHAVI SAUCEDO DO Endorsed Time: 0700 Pending: consult (MINDA GRECO MD) Departure Departure Disposition: STILL A PATIENT Condition: Stable Clinical Impression Primary Impression: Nikolas Secondary Impressions: Suicidal ideation Referrals: TARIK MANUEL MD (PCP/Family) Departure Forms: Customer Survey General Discharge Information (RAUDEL DENTON PA-C) PA/PORCELAIN FINISH SPRAYER Co-Sign Statement Statement: ED Attending supervision documentation- x I saw and evaluated the patient. I have also reviewed all the pertinent lab results and diagnostic results. I agree with the findings and the plan of care as documented in the PA's/PORCELAIN FINISH SPRAYER's documentation. [] I have reviewed the ED Record and agree with the PA's/PORCELAIN FINISH SPRAYER's documentation. [] Additions or exceptions (if any) to the PAs/PORCELAIN FINISH SPRAYER's note and plan are summarized below: [] (MINDA GRECO MD) Departure Comments 04/27/17 8:39 AM The patient was signed out to me by Dr. Greco. She was planning on driving her car off a shantel and left work to do so yesterday. She has pressured speech but is more organized apparently than she was last night. She will be for a bed search as per crisis. (MADHAVI SAUCEDO DO)
--- NOTE | 2017-04-26 18:00 | NUR ---
SECURITY AT BEDSIDE FOR WANDING AND PT CHANGED INTO BLUE SCRUBS
--- NOTE | 2017-04-26 18:01 | NUR ---
PT BIBA ON PEER FOR PSYCH EVAL. PER PT SHE HAD AN ARGUMENT WITH HER BOSS AND SHE HAS NOT TAKEN HER BIPOLAR MEDS IN 4-5 DAYS. PER EMS, PT EXHIBITED STRANGE BEHAVIOR LAST NIGHT RINGING STRANGER'S DOORBELLS AND TODAY SHE MADE COMMENTS OF WANTING TO O/D ON PILLS OR DRIVE HER CAR OFF A BRIDGE. PT REPORTS OCCASIONAL ETOH USE, DENIES USE TODAY. PT DENIES DRUG USE AND STATES SHE HAS A HX OF BENZO ABUSE. PT REPORTS BEING PRE-DIABETIC AND STATES SHE CHECKS HER SUGAR 4X/DAY. PER EMS, PT WAS HYPERSEXUAL DURING TRANSPORT. PT REPORTS HER NEURO MD IS AT [facility] AND IS DR MAYER.
--- NOTE | 2017-04-26 18:34 | NUR ---
1 BAG PLACED IN SAFE
--- NOTE | 2017-04-26 18:47 | NUR ---
LABS SENT (BLUE,SST,LAV,RYDER)
[2017-04-26 18:56] LABS: ABSOLUTE BASOPHIL COUNT 0 /CUMM (0.0-0.2); ABSOLUTE EOSINOPHIL COUNT 0.3 /CUMM (0.0-0.7); ABSOLUTE GRANULOCYTE CT 7.5 /CUMM (1.4-6.5); ABSOLUTE LYMPH COUNT 4.4 /CUMM (1.2-3.4); ABSOLUTE MONOCYTE COUNT 0.8 /CUMM (0.10-0.60); BASOPHIL % 0.2 % (0.0-2.0); EOSINOPHIL % 2.7 % (0-5); GRANULOCYTE % 57.4 % (42.2-75.2); HEMATOCRIT 43.5 % (37-47); MEAN CORPUSCULAR HGB 31.3 PG (27.0-31.0); MEAN CORPUSCULAR HGB CONC 33.1 G/DL (33.0-37.0); MEAN CORPUSCULAR VOLUME 94.6 FL (81.0-99.0); MEAN PLATELET VOLUME 7.7 FL (7.4-10.4); PLATELET COUNT 322 /CUMM (130-400); RBC DISTRIBUTION WIDTH 14.4 % (11.5-14.5); WHITE BLOOD CELL COUNT 13.1 /CUMM (4.8-10.8)
--- NOTE | 2017-04-26 19:15 | NUR ---
PT MOVED FROM HALLWAY TO ROOM 12 DUE TO LABILITY AND HER SPEAKING LOUDLY TO PASSING PATIENTS AND STAFF. SITTER AT DOOR.
--- NOTE | 2017-04-26 20:03 | NUR ---
PT MEDICATED WITH ATIVAN 2MG AND BENADRYL 50MG IV. PT REPORTED THAT SHE WAS ALLERGIC TO HALDOL AND IT MAKES HER GO INTO A "SEIZURE-LIKE COMA". BETH DENTON MADE AWARE.
--- NOTE | 2017-04-26 21:45 | NUR ---
PT REPORTING THAT SHE NEEDS A BREATHING TREATMENT AND HAS NOT HAD HER INHALER ALL DAY. BETH DENTON ADVISED AND HE WILL PUT ORDER IN FOR [facility] [place]. PT LULY REMOVED HER PANTS AND HAS THE BLANKET WRAPPED AROUND HER LIKE A SKIRT. PT WAS ASKED TO PUT HER PANTS ON. SITTER AT DOOR.
--- NOTE | 2017-04-26 21:52 | NUR ---
CALLED RESPIRATORY RE:[facility] [place]
--- NOTE | 2017-04-26 22:08 | NUR ---
RESPIRATORY AT BEDSIDE FOR BREATHING TREATMENT
--- NOTE | 2017-04-26 22:41 | ED PSYCH CRISIS CONSULTATION ---
Crisis Consult Basic Assessment Date of Consult: 04/26/17 Responsible Person/Accompanied By: Shahid NEVAREZ Insurance Authorization: Insurance #1: Insurance name: ROSS Coleman C&A Phone number: Policy number: [id number] Group number: Authorization number: ED Provider: Patient's ED Provider: RAUDEL DENTON PA-C Primary Care Physician: Patient's PCP: TARIK MANUEL MD PCP's Current Psychiatrist: Julio Marin MD Chief Complaint: Psychiatric Related Complaint Patient's Quote: " I am a little Manic" Present Illness: Patient is a 41-year single female with a history of bipolar disorder brought in by ambulance on a police emergency examination request. The patient was working at [employer] with suicidal ideation. She stated to her coworker and boss, she would drive her car off a shantel. The patient also stated to her boss not being herself today. The patient extremely manic, flight ideas, pressured speech, and religiously preoccupied. The patient has a long history of psychiatric treatment and the last hospitalization was 07/28/2016 for Bipolar and Depression. She was recently discharged from [facility] intensive outpatient treatment on April 16, 2017 treated with Geodon 40 mg and Lamictal 100 mg. The patient reports not taking her medication for a few days. She has a history of substance abuse and provided a positive toxicology screen for Cannabis and Barbiturate. The patient reported smoking (1) bowl of Marijuana, drinking a shot, drinking 12 cups of coffee and taking Ativan 1 mg. The patient was difficult to interview because of presenting so manic and concerned of losing her job today. Patient's Address: [address] [place] [address] Other Who Do You Live With? Mother Family/Informants Interviewed: cannot be obtained due to (unable to contact) Allergies - Coded Allergies: haloperidol (From HALDOL) ("seizure like coma sleep" 04/26/17) Uncoded Allergies: DOG SHAMPOO (HIVES AND ITCHING ALL OVER 03/31/15) Current Medications - Scheduled Medications Prednisone 50 MG TABLET 1 TAB PO DAILY bronchitis #5 TAB Prescribed by JAYANT [facility]ZO,[facility] on 03/12/17 Ziprasidone Hydrochloride (Geodon) 20 MG CAPSULE 1 CAP PO BID BIPOLAR ( Reported) Entered as Reported by FIONA ZIMMERMAN on 03/28/17 0249 Scheduled PRN Medications Albuterol Sulfate (Proair Hfa) 90 MCG HFA.AER.AD 2 PUF INH Q4-6 PRN PRN ASTHMA #1 INHAL Prescribed by YONATAN PEREZ MD on 03/10/17 Miscellaneous Medications Lamotrigine (Lamictal) 25 MG TABLET 50 MG PO MENTAL HEALTH (Reported) Entered as Reported by GELY KESSLER on 07/28/16 1123 Laboratory Results: Laboratory Tests 04/26/17 1933: Urine Opiates Screen < 100.00, Methadone Screen < 40, Barbiturate Screen > 800 H, Ur Phencyclidine Scrn < 6.00, Amphetamines Screen 120, U Benzodiazepines Scrn < 85, Urine Cocaine Screen < 50, Urine Cannabis Screen 79.90 H, Urine Color YEL , Urine Clarity HAZY H, Urine pH 6.0, Ur Specific Dwight 1.015, Urine Protein NEG, Urine Ketones NEG, Urine Nitrite NEG, Urine Bilirubin NEG, Urine Urobilinogen 0.2, Ur Leukocyte Esterase NEG, Ur Microscopic SEDIMENT EXAMINED, Urine RBC 5-10 H, Ur Epithelial Cells MANY H, Urine Bacteria RARE H, Urine Hemoglobin LARGE H, Urine Glucose NEG, Urine Test NEGATIVE 04/26/17 1830: Anion Gap 9, Estimated GFR > 60, BUN/Creatinine Ratio 14.4, Glucose 103 H, Calcium 9.9, Total Bilirubin 0.3, AST 20, ALT 31, Alkaline Phosphatase 63, Total Protein 7.1, Albumin 4.2, Globulin 2.9, Albumin/Globulin Ratio 1.4, CBC w Diff NO MAN DIFF REQ, RBC 4.60, MCV 94.6, MCH 31.3 H, RDW 14.4, MPV 7.7, Gran % 57.4 , Lymphocytes % 33.7, Monocytes % 6.0, Eosinophils % 2.7, Basophils % 0.2, Absolute Granulocytes 7.5 H, Absolute Lymphocytes 4.4 H, Absolute Monocytes 0.8 H, Absolute Eosinophils 0.3, Absolute Basophils 0, PUBS MCHC 33.1, Serum Alcohol < 10.0 (CRISTIAN SKINNER) Past History Past Medical History Neurological: AVM EENT: NONE Cardiovascular: NONE Respiratory: NONE Gastrointestinal: HYPOGLYCEMIA Hepatic: NONE Renal: NONE Musculoskeletal: NONE Psychiatric: anxiety, bipolar disease Endocrine: Hypoglycemia Blood Disorders: NONE Cancer(s): NONE 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 Pt has a supportive mother and identifies her three children as protective factors. Pt has a desire to feel better and is currently connected to treatment. Physical Limitations (Interventions): None identified. Psychiatric Treatment History Psych Treatment Psychiatric Treatment Yes Inpatient Treatment Yes Outpatient Treatment Yes Location of Treatment [facility] Reason for Treatment Bipolar Disorder Dates of Treatment 07/28/2016 inpatient treatment, oupatient treatment 2016 Response to Treatment poor compliance with outpatient treatment. Diagnosis by History: Bipolar D/O Substance Use/Abuse History Drug Use/Abuse Substances Used/Abused Yes Substance Used/Abused Marijuana First Use 14 year old Last Used 04/26/2017 How much used/taken (1) bowl of Marijuana How often daily For how long unknown Route of use smoking Substance Abuse Treatment Substance Abuse Treatment Past Substance Abuse TX Yes Inpatient Treatment Yes Outpatient Treatment Yes Location of Treatment [place] Reason for Treatment Polysubstance Use and Bipolar Dates of Treatment 03/2017 Response to Treatment poor (CRISTIAN SKINNER) Current Mental Status Mental Status Orientation: Person, Place, Situation Affect: Anxious, Labile, Manic Speech: Hyper-verbal, Pressured Neuro-vegetative: Appetite Decreased, Energy Decreased Appearance Appearance- Dress/Hygiene: Dressed in hospital clothing Behaviors Thought Process: Flight of Ideas, Tangential Thought Content: Confabulations, Scientologist Memory: WNL Insight: Poor SI/HI Risk Assessment Past Suicidal Ideation/Attempts Yes Current Suicidal Ideation/Att Yes Past Homicidal Ideation/Att: No Current Homicidal Ideation/Attempts No Degree of Intent: Plan, States Intent Danger To: Self Gravely Disabled: Lack of Insight, Poor Impulse Control, Poor Judgment Risk Factors: SA/MH hospitalized, substance abuse, limited support Lethality Ratin PTSD Checklist PTSD Score: PTSD Score: Response Value Disturbing memories,thoughts,images of stressful experience? Not at all 1 Disturbing dreams of stressful experience from past? Not at all 1 Suddenly acting/feeling as if reliving stressful experience? Not at all 1 Total 3 PTSD Done? 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 Current GAF: 25 Comments: [facility] extremely manic, flight ideas, religously preoccupied, and pressured speech. Pt was brought in by ambulance on a police emergency examination request. This case was consulted with Dr. Marin for re- evaluation in the morning. (CRISTIAN SKINNER) Departure Disposition Psych Medical Clearance Date: 04/26/17 Medically Cleared at: 2100 Time Started: 2100 Time Ended: 2199 Psychiatrist Consulted: Julio Marin MD Date Disposition Established: 04/26/17 Time Disposition Established: 2229 Plan for Disposition - Modality: Hold over re-evaluation Rationale for Disposition: [facility] extremely manic, flight ideas, religously preoccupied, and pressured speech. Pt was brought in by ambulance on a police emergency examination request. This case was consulted with Dr. Marin for re- evaluation in the morning. Referrals TARIK MANUEL MD (PCP/Family) (EVGENY DUTTONCRISTIAN) Disposition Psych Medical Clearance Date: 04/27/17 Medically Cleared at: 0730 Time Started: 0730 Time Ended: 0800 Psychiatrist Consulted: Geri Metzger MDhaela Date Disposition Established: 04/27/17 Time Disposition Established: 08 Plan for Disposition - Modality: Inpatient Psychiatry Facility: [facility] vs bed search based on bed availability Rationale for Disposition: Safety and stabilization Type of IP Admission: [facility] (NEHEMIAH ELLIS LCSW) Addendum Addendum Crisis re-evaluated pt this morning. There is food and paper strewn about the floor in her room, There are multiple paper scrub pants on the floor in the corner. Pt states they are there because she peed through all of then because of her bronchitis. She presents as hyperverbal, disorganized, and labile. One moment she is laughing and smiling and the next she is tearful. She expressed that she would like to be discharged so that she can go to her intake appointment at [facility] this morning. she She denies active SI, but made multiple significant suicidal statements yesterday. "I was just saying that because I did not want to loose my job. I was being a drama kincaid." After her appointment at [facility] she plans to go mountain biking and walking bare foot in the [place] to "help me get through my mid life woman thing." Pt is unsure if she still has a job after yesterdays incident at work. She was not able to elaborate on the details of her argument with her boss. "I am sup[posed to call my boss back today to find out if I have a job. She is my friend." Pt shares that she is currently being evicted from living with her mother, but she says she has 1 more month to save $1000 security deposit to where she plans to move. "Praise God Suman [employer], my new Landlord is a nice Citizen [place] yosef and he is holding the place for me." Clinical Coordinator of [facility] Valencia Mullins informed that pt was not compliant at [facility] and was refusing urine screens but admitted to marijuana use as well a sporadic benzo use and the use of some other unknown drug with her boyfriend. Pt then recently gained employment and expressed that she could not go to [facility] as it would conflict with work. Pt requested to go to [facility] pt, but it was determined she needed a higher lever of care than [facility] pt. Therefore, pt decided to got for an intake at [facility] instead. Case reviewed with Dr. Metzger of Psychiatry and pt requires inpt psych tx and will be placed on a PEC. She will either be admitted to [facility] or another facility based on bed availability. (RHONDA TURCIOS,NEHEMIAH)
--- NOTE | 2017-04-27 00:44 | NUR ---
PT YELLING OUT LOUD IN THE HALLWAY AND TRYING TO LEAVE THE ROOM. UNABLE TO REDIRECT. MEDICATED WITH ZYPREXA AND BENADRYL IM ORDERED ON LEFT VETROGLUTEAL ORDERED. SITTER AT THE DOORWAY.
--- NOTE | 2017-04-27 02:18 | NUR ---
MEDS EFFECTIVE. PT SOUND ASLEEP WITH RESPIRATORY RATE WITHIN NORMAL LIMITS.
--- NOTE | 2017-04-27 03:12 | NUR ---
PT AMBULATED TO BATHROOM. CAME OUT OF BATHROOM YELLING LOUDLY AND MAKING SEXUAL COMMENTS. REDIRECTIONS BY MULTIPLE STAFF MEMBERS FAILED. NOTIFIED. MEDICATED WITH ZYPREXA AND PHENERGEN IM ADMINISTERED ORDERED. SITTERS AT THE DOOR.
--- NOTE | 2017-04-27 03:50 | NUR ---
MEDS EFFECTIVE. PT CALMLY SLEEPING WITH REGULAR BREATHING PATTERNS.
--- NOTE | 2017-04-27 06:00 | NUR ---
PT SITTING AT BEDSIDE READING A MAGAZINE.
--- NOTE | 2017-04-27 06:32 | NUR ---
PT CALM. READING MAGAZINE AND CHATTING WITH SITTERS. HELD THORAZINE IM PER .
--- NOTE | 2017-04-27 07:20 | NUR ---
[address] Nurse Note by: DERRICK COFFEY I agree with the CITY CARRIER ASSISTANT findings/evaluation of this patient's condition. Entered by: DERRICK COFFEY Date: 04/27/17 Time: 07
--- NOTE | 2017-04-27 07:44 | NUR ---
PAINT TINTER TAHIRA SPEAKING WITH PATIENT AT THIS TIME.
--- NOTE | 2017-04-27 07:50 | NUR ---
PER TAHIRA IN CRISIS PATIENT WAS REQUESTING "MORE COUGH MEDICINE" FOR HOARSE VOICE SHE WAS HAVING DIFFICULTY WITH SPEAKING WITH CRISIS. SPOKE WITH PATIENT AND ADVISED THAT SHE HAD NOT RECEIVED ANY COUGH MEDICINE OVER NIGHT. PT STATES "I NEVER SAID I WANTED MORE BUT IT'S IN MY RECORD THAT I HAVE ACUTE BRONCHITIS AND DR SABA GAVE ME COUGH MEDICINE WITH CODEINE". DR SAUCEDO MADE AWARE OF SAME AND WILL GO EVALUATE PATIENT. NO NEW ORDERS AT THIS TIME. WILL CONTINUE TO MONITOR.
--- NOTE | 2017-04-27 09:19 | NUR ---
PT EVALUATED BY DR SAUCEDO MEDICATED PATIENT WITH ATIVAN PER ORDERS. WHEN MEDICATING PATIENT SHE INITIALLY STATED THAT SHE DID NOT NEED THE MEDICATION SHE WOULD NOT BE STAYING. STATES THAT SHE HAD SOMEWHERE IMPORTANT TO BE BUT THAT SHE COULD NOT TELL ME ABOUT IT I WOULD THINK SHE WAS CRAZY. ADVISED PATIENT THAT I DID NOT BELIVE SHE WAS CLEARED FOR D/C BY THE DOCTOR AND THAT IT WOULD BE DIFFICULT TO HELP HER IF SHE COULD NOT TELL ME WHAT WAS GOING ON. PT THEN WENT ON TO SAY "I'M PSYCHIC. 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 I AM SUPPOSED TO BE MEETING MY SOULMATE AND IF I'M NOT THERE. I'M OFF BUT I'M GOING TO LOSE MY JOB AT [employer]. THEY WILL FIRE ME. 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 I JUST WANT TO GO HOME TO MY DOG AND GO SWIMMING. MY THERAPY DOG HELPS ME WITH MY ANXIETY." PT ULTIMATELY STATED SHE WOULD TAKE THE MEDICATION PRESCRIBED.
--- NOTE | 2017-04-27 09:49 | NUR ---
PER SIZING MACHINE TENDER TAHIRA PATIENT IS TO BE ADMITTED TO [facility] AND WOULD LIKE HER TO RECEIVE THORAZINE BEFORE BEING TRANSFERRED DOWNSTAIRS. AWAITING ORDER FROM DR SAUCEDO FOR SAME.
--- NOTE | 2017-04-27 10:02 | IP CRISIS DIAG ASSESS PSYCH ---
Diagnostic Assessment Basic Assessment Insurance Authorization: Insurance #1: Insurance name: ROSS Coleman C&A Phone number: Policy number: [id number] Group number: Authorization number: [id number] Primary Care Physician: Patient's PCP: TARIK MANUEL MD PCP's Patient's Quote: " I am a little Manic" Present Illness: Patient is a 41-year single female with a history of bipolar disorder brought in by ambulance on a police emergency examination request. The patient was working at [employer] with suicidal ideation. She stated to her coworker and boss, she would drive her car off a shantel. The patient also stated to her boss not being herself today. The patient extremely manic, flight ideas, pressured speech, and religiously preoccupied. The patient has a long history of psychiatric treatment and the last hospitalization was 07/28/2016 for Bipolar and Depression. She was recently discharged from [facility] intensive outpatient treatment on April 16, 2017 treated with Geodon 40 mg and Lamictal 100 mg. The patient reports not taking her medication for a few days. She has a history of substance abuse and provided a positive toxicology screen for Cannabis and Barbiturate. The patient reported smoking (1) bowl of Marijuana, drinking a shot, drinking 12 cups of coffee and taking Ativan 1 mg. The patient was difficult to interview because of presenting so manic and concerned of losing her job today. CRISTIAN PEPPER [facility]> 04/26/17 Crisis re-evaluated pt this morning. There is food and paper strewn about the floor in her room, There are multiple paper scrub pants on the floor in the corner. Pt states they are there because she peed through all of then because of her bronchitis. She presents as hyperverbal, disorganized, and labile. One moment she is laughing and smiling and the next she is tearful. She expressed that she would like to be discharged so that she can go to her intake appointment at [facility] this morning. she She denies active SI, but made multiple significant suicidal statements yesterday. "I was just saying that because I did not want to loose my job. I was being a drama kincaid." After her appointment at [facility] she plans to go mountain biking and walking bare foot in the [place] to "help me get through my mid life woman thing." Pt is unsure if she still has a job after yesterdays incident at work. She was not able to elaborate on the details of her argument with her boss. "I am sup[posed to call my boss back today to find out if I have a job. She is my friend." Pt shares that she is currently being evicted from living with her mother, but she says she has 1 more month to save $1000 security deposit to where she plans to move. "Praise God Suman and the [facility] [employer], my new Landlord is a nice Citizen [place] yosef and he is holding the place for me." Clinical Coordinator of [facility] Valencia Mullins informed that pt was not compliant at [facility] and was refusing urine screens but admitted to marijuana use as well a sporadic benzo use and the use of some other unknown drug with her boyfriend. Pt then recently gained employment and expressed that she could not go to [facility] as it would conflict with work. Pt requested to go to [facility] pt, but it was determined she needed a higher lever of care than [facility] pt. Therefore, pt decided to got for an intake at [facility] instead. Case reviewed with Dr. Metzger of Psychiatry and pt requires inpt psych tx and will be placed on a PEC. She will either be admitted to [facility] or another facility based on bed availability. NEHEMIAH TOLBERTPATTI INGREDIENT SPECIALIST> 04/27/17 Patient's Address: [address] [place] [address] Other Who Do You Live With? Mother Marital Status: single Do You Have Children? Yes Ages? 19, 15, 9 Primary Language? Grenadian Language(s) Spoken At Home: Grenadian Family/Informants Interviewed: cannot be obtained due to (unable to contact) Allergies - Coded Allergies: haloperidol (From HALDOL) ("seizure like coma sleep" 04/26/17) Uncoded Allergies: DOG SHAMPOO (HIVES AND ITCHING ALL OVER 03/31/15) Current Medications - Scheduled Medications Prednisone 50 MG TABLET 1 TAB PO DAILY bronchitis #5 TAB Prescribed by JAYANT MANZO,[facility] on 03/12/17 Ziprasidone Hydrochloride (Geodon) 20 MG CAPSULE 1 CAP PO BID BIPOLAR ( Reported) Entered as Reported by FIONA ZIMMERMAN on 03/28/17 0249 Scheduled PRN Medications Albuterol Sulfate (Proair Hfa) 90 MCG HFA.AER.AD 2 PUF INH Q4-6 PRN PRN ASTHMA #1 INHAL Prescribed by YONATAN PEREZ MD on 03/10/17 Miscellaneous Medications Lamotrigine (Lamictal) 25 MG TABLET 50 MG PO MENTAL HEALTH (Reported) Entered as Reported by GELY KESSLER on 07/28/16 1123 Toxicology Screen Completed? Yes Results: positive Past History Past Medical History Medical History: ANXIETY/DEPRESSION Past Surgical History Surgical History non-contributory Abuse/Trauma History Trauma History/Current Trauma: Denies Psychosocial History Strengths/Capabilities: Pt is able to articulate her wants and needs. Pt has a supportive mother and identifies her three children as protective factors. Pt has a desire to feel better and is currently connected to treatment. Physical Limitations (Interventions): None identified. Psychiatric Treatment History Psych Treatment Psychiatric Treatment Yes Inpatient Treatment Yes Outpatient Treatment Yes Location of Treatment [facility] Reason for Treatment Bipolar Disorder Dates of Treatment 07/28/2016 inpatient treatment, oupatient treatment 2016 Response to Treatment poor compliance with outpatient treatment. Diagnosis by History: Bipolar D/O Risk Factors: SA/MH hospitalized, substance abuse, limited support Substance Use/Abuse History Drug Use/Abuse minimum 12mo Hx Substances Used/Abused Yes Substance Used/Abused Marijuana First Use 14 year old Last Used 04/26/2017 How much used/taken (1) bowl of Marijuana How often daily For how long unknown Route of use smoking Substance Abuse Treatment Substance Abuse Treatment Past Substance Abuse TX Yes Inpatient Treatment Yes Outpatient Treatment Yes Location of Treatment [place] Reason for Treatment Polysubstance Use and Bipolar Dates of Treatment 03/2017 Response to Treatment poor Education History Highest Level of Education: bachelor's degree Current Mental Status Mental Status Orientation: Person, Place, Situation Affect: Anxious, Labile, Manic Speech: Hyper-verbal, Pressured Neuro-vegetative: Appetite Decreased, Energy Decreased Appearance Appearance- Dress/Hygiene: Dressed in hospital clothing Behaviors Thought Process: Flight of Ideas, Tangential Thought Content: Confabulations, Adventist Memory: WNL Insight: Poor SI/HI Risk Assessment - Minimum 6mo History- Past Suicidal Ideation/Attempts Yes Current Suicidal Ideation/Att Yes Past Homicidal Ideation/Att: No Current Homicidal Ideation/Attempts No Degree of Intent: Plan, States Intent Danger To: Self Gravely Disabled: Lack of Insight, Poor Impulse Control, Poor Judgment Risk Factors: SA/MH hospitalized, substance abuse, limited support Lethality Ratin Needs/Init TX Plan/Goals: safety and stabilization of sx, individual,group, and family therapy, med eval AUDIT-C Questionnaire: AUDIT-C Questionnaire: Response Value ETOH use in the past year Never 0 # drinks typical/day Doesn't Drink 0 6 or > drinks per occasion Never 0 Total 0 DSM5/PS Stressors/Medical Prob Diagnosis' (DSM 5, Stressors, Medical): F31.4 Bipolar Disorder, Sedative Use Disorder F13.20, Cannabis Disorder F12.20, 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 Current GAF: 25 Comments: [facility], flight ideas, religously preoccupied, and pressured speech. Pt was brought in by ambulance on a police emergency examination request.
--- NOTE | 2017-04-27 10:57 | SOCIAL WORKER SOCIAL HX PSYCH ---
Social History Basic Assessment Insurance Authorization: Insurance #1: Insurance name: ROSS Coleman C&A Phone number: Policy number: [id number] Group number: Authorization number: Curr Source of Income/Entitlements: employment, food stamps, Medicaid Primary Care Physician: Patient's PCP: TARIK MANUEL MD PCP's Present Problem: Patient is a 41-year single female with a history of bipolar disorder brought in by ambulance on a police emergency examination request. The patient was working at [employer] with suicidal ideation. She stated to her coworker and boss, she would drive her car off a shantel. The patient also stated to her boss not being herself today. The patient extremely manic, flight ideas, pressured speech, and religiously preoccupied. The patient has a long history of psychiatric treatment and the last hospitalization was 07/28/2016 for Bipolar and Depression. She was recently discharged from [facility] intensive outpatient treatment on April 16, 2017 treated with Geodon 40 mg and Lamictal 100 mg. The patient reports not taking her medication for a few days. She has a history of substance abuse and provided a positive toxicology screen for Cannabis and Barbiturate. The patient reported smoking (1) bowl of Marijuana, drinking a shot, drinking 12 cups of coffee and taking Ativan 1 mg. The patient was difficult to interview because of presenting so manic and concerned of losing her job today. [facility]> 04/26/17 Crisis re-evaluated pt this morning. There is food and paper strewn about the floor in her room, There are multiple paper scrub pants on the floor in the corner. Pt states they are there because she peed through all of then because of her bronchitis. She presents as hyperverbal, disorganized, and labile. One moment she is laughing and smiling and the next she is tearful. She expressed that she would like to be discharged so that she can go to her intake appointment at [facility] this morning. she She denies active SI, but made multiple significant suicidal statements yesterday. "I was just saying that because I did not want to loose my job. I was being a drama kincaid." After her appointment at [facility] she plans to go mountain biking and walking bare foot in the horne to "help me get through my mid life woman thing." Pt is unsure if she still has a job after yesterdays incident at work. She was not able to elaborate on the details of her argument with her boss. "I am sup[posed to call my boss back today to find out if I have a job. She is my friend." Pt shares that she is currently being evicted from living with her mother, but she says she has 1 more month to save $1000 security deposit to where she plans to move. "Praise God Suman and the [employer], my new Landlord is a nice Ecuadorean yosef and he is holding the place for me." Clinical Coordinator of [facility] Valencia Mullins informed that pt was not compliant at [facility] and was refusing urine screens but admitted to marijuana use as well a sporadic benzo use and the use of some other unknown drug with her boyfriend. Pt then recently gained employment and expressed that she could not go to [facility] as it would conflict with work. Pt requested to go to [facility] pt, but it was determined she needed a higher lever of care than [facility] pt. Therefore, pt decided to got for an intake at [facility] instead. Case reviewed with Dr. Metzegr of Psychiatry and pt requires inpt psych tx and will be placed on a PEC. She will either be admitted to [facility] or another facility based on bed availability. NEHEMIAH ELLIS [facility]> 04/27/17 Primary Language? Stateless Language(s) Spoken At Home: Stateless Living Situation Rents or Owns Home? rents Allergies - Coded Allergies: haloperidol (From HALDOL) ("seizure like coma sleep" 04/26/17) Uncoded Allergies: DOG SHAMPOO (HIVES AND ITCHING ALL OVER 03/31/15) Current Medications - Scheduled Medications Prednisone 50 MG TABLET 1 TAB PO DAILY bronchitis #5 TAB Prescribed by BARBARA SABA MD on 03/12/17 Ziprasidone Hydrochloride (Geodon) 20 MG CAPSULE 1 CAP PO BID BIPOLAR ( Reported) Entered as Reported by FIONA ZIMMERMAN on 03/28/17 0249 Scheduled PRN Medications Albuterol Sulfate (Proair Hfa) 90 MCG HFA.AER.AD 2 PUF INH Q4-6 PRN PRN ASTHMA #1 INHAL Prescribed by YONATAN PEREZ MD on 05/13/17 Miscellaneous Medications Lamotrigine (Lamictal) 25 MG TABLET 50 MG PO MENTAL HEALTH (Reported) Entered as Reported by GELY KESSLER on 07/28/16 1123 Past History Past Medical History Neurological: AVM EENT: NONE Cardiovascular: NONE Respiratory: NONE Gastrointestinal: HYPOGLYCEMIA Hepatic: NONE Renal: NONE Musculoskeletal: NONE Psychiatric: anxiety, bipolar disease Endocrine: Hypoglycemia Blood Disorders: NONE Cancer(s): NONE 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 No Relationship w/Mother: Ambivalent - supportive but conflictual. Relationship w/Father: Father secondary to heart failure when the pt was a child. Any Sibling(s)? Yes Sibling's Gender(s)/Age(s): female Sibling 1: Relationship w/Sibling(s): Occasional conflict but supportive. Relationship w/Friends: Some sober supports, some unhealthy relationships. Family Psych/Sub Abuse/Add Hx: denies Number of Pregnancies: 5 Number of Miscarriages: 0 Number of Abortions: 1 Abuse/Trauma History Trauma History/Current Trauma: Denies Legal History Legal Guardian/Address/Phone: Self Hx of Juvenile Legal Charges? No Hx of Adult Legal Charges? Yes If Yes: misdemeanor, felony List/Date Most Recent Lgl Chgs: Unknown specifics regarding full legal hx, however known drug-related charges and disorderly conduct. Chgs/Dts/Incarcerations/Sentnc Unknown Civil Proceedings: Denies Domestic Relations Court: Denies Child Protective Serv Involvmnt Denies Psychosocial History Primary Support System: mother Strengths/Capabilities: Pt is able to articulate her wants and needs. Pt has a supportive mother and identifies her three children as protective factors. Pt has a desire to feel better and is currently connected to treatment. Physical Limitations (Interventions): None identified. Last Physical: Unknown History of Blackouts? Yes Last Blackout: Unknown ADL Limitations: Denies [place]/Social/Peer Relations Some sober supports, some unhealthy relationships. Meaningful Activities: Reports loss of interest/motivation Childhood Evangelical: Jewish Current Islam Affiliation: Jewish Is Spirituality Important to You? Yes Cultural/Ethnic Issues: Denies Are There Developmental Issues? No Milestones Achieved: fine motor, gross motor Psychiatric Treatment History Psych Treatment Inpatient Treatment Yes Outpatient Treatment Yes Location of Treatment [facility] Reason for Treatment Bipolar Disorder Dates of Treatment 07/28/2016 inpatient treatment, oupatient treatment 2016 Response to Treatment poor compliance with outpatient treatment. Treatment of Prior Episodes: See above Diagnosis: Bipolar D/O Psychodynamic Issues: Treatment and medication non-compliance, substance abuse/chronic relapse, legal problems, DCF involvement, chaotic interpersonal relationships Risk Factors: SA/MH hospitalized, substance abuse, limited support Substance Use/Abuse History Drug Use/Abuse Substance Used/Abused Marijuana First Use 14 year old Last Used 04/26/2017 How much used/taken (1) bowl of Marijuana How often daily For how long unknown Route of use smoking Substance Abuse Treatment Substance Abuse Treatment Inpatient Treatment Yes Outpatient Treatment Yes Location of Treatment [place], [place] Reason for Treatment Polysubstance Use and Bipolar Dates of Treatment 03/2017 Response to Treatment poor Education History Highest Level of Education: bachelor's degree Number of College Years: 4 HX of Learning Difficulties: None reported Barriers to Learning: None reported Special Communication Needs: None reported Employment History Comments: Pt reports that she was fired from her job today upon arriving to the ED and telling her boss that she would be unable to come to work. History Have You Been in The ? No Current Mental Status Problem List: 1. Bipolar 1 disorder 2. Marijuana abuse 3. Bipolar disorder 4. Bronchitis 5. Suicidal ideation Mental Status Orientation: Person, Place, Situation Affect: Anxious, Labile, Manic Speech: Hyper-verbal, Pressured Neuro-vegetative: Appetite Decreased, Energy Decreased Appearance Appearance- Dress/Hygiene: Dressed in hospital clothing Behaviors Thought Process: Flight of Ideas, Tangential Thought Content: Confabulations, Islam Memory: WNL Insight: Poor SI/HI Risk Assessment Past Suicidal Ideation/Attempts Yes Current Suicidal Ideation/Att Yes Past Homicidal Ideation/Att: No Current Homicidal Ideation/Attempts No Degree of Intent: Plan, States Intent Danger To: Self Gravely Disabled: Lack of Insight, Poor Impulse Control, Poor Judgment Risk Factors: High Anxiety/Distress, SA/MH Hospitalization(s), Poor impulse control, Substance Abuse Lethality Ratin - Conclusion and Recommendations for treatment - and discharge planning Summary: Patient is a 41-year single female with a history of bipolar disorder brought in by ambulance on a police emergency examination request. The patient was working at [employer] with suicidal ideation. She stated to her coworker and boss, she would drive her car off a shantel. The patient also stated to her boss not being herself today. The patient extremely manic, flight ideas, pressured speech, and religiously preoccupied. The patient has a long history of psychiatric treatment and the last hospitalization was 07/28/2016 for Bipolar and Depression. She was recently discharged from [facility] intensive outpatient treatment on April 16, 2017 treated with Geodon 40 mg and Lamictal 100 mg. The patient reports not taking her medication for a few days. She has a history of substance abuse and provided a positive toxicology screen for Cannabis and Barbiturate. The patient reported smoking (1) bowl of Marijuana, drinking a shot, drinking 12 cups of coffee and taking Ativan 1 mg. The patient was difficult to interview because of presenting so manic and concerned of losing her job today. [facility]> 04/26/17 Crisis re-evaluated pt this morning. There is food and paper strewn about the floor in her room, There are multiple paper scrub pants on the floor in the corner. Pt states they are there because she peed through all of then because of her bronchitis. She presents as hyperverbal, disorganized, and labile. One moment she is laughing and smiling and the next she is tearful. She expressed that she would like to be discharged so that she can go to her intake appointment at [facility] this morning. she She denies active SI, but made multiple significant suicidal statements yesterday. "I was just saying that because I did not want to loose my job. I was being a drama kincaid." After her appointment at [facility] she plans to go mountain biking and walking bare foot in the [place] to "help me get through my mid life woman thing." Pt is unsure if she still has a job after yesterdays incident at work. She was not able to elaborate on the details of her argument with her boss. "I am sup[posed to call my boss back today to find out if I have a job. She is my friend." Pt shares that she is currently being evicted from living with her mother, but she says she has 1 more month to save $1000 security deposit to where she plans to move. "Praise God Suman and the [employer], my new Landlord is a nice Ecuadorean yosef and he is holding the place for me." Clinical Coordinator of [facility] Valencia Mullins informed that pt was not compliant at [facility] and was refusing urine screens but admitted to marijuana use as well a sporadic benzo use and the use of some other unknown drug with her boyfriend. Pt then recently gained employment and expressed that she could not go to [facility] as it would conflict with work. Pt requested to go to [facility] pt, but it was determined she needed a higher lever of care than [facility] pt. Therefore, pt decided to got for an intake at [facility] instead. Case reviewed with Dr. Metzger of Psychiatry and pt requires inpt psych tx and will be placed on a PEC. She will either be admitted to [facility] or another facility based on bed availability. 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
--- NOTE | 2017-04-27 11:04 | NUR ---
REPORT TO ANEL WALLACE
--- NOTE | 2017-04-27 11:10 | NUR ---
REPORT ALSO GIVEN TO PERSONAL PROPERTY ASSESSORANEL JIMENEZ AWARE THAT PATIENT NEEDS REPEAT VITALS AND DOSE OF ZYPREXA PRIOR TO TRANSPORT TO [facility].
--- NOTE | 2017-04-27 11:25 | NUR ---
PT MEDICATED WITH ZYPREXA PER EMAR. TOLERATED WELL.
--- NOTE | 2017-04-27 11:31 | NUR ---
PT AWARE SHE IS GOING TO [facility] AT THIS TIME. SECURITY AND FEMALE SITTER TO BRING PATIENT TO [facility] VIA WHEELCHAIR.
--- NOTE | 2017-04-27 11:38 | NUR ---
PT TRANSPORTED DOWNSTAIRS WITH 1 VALUABLES BAG AND 1 BELONGINGS BAG. 1 BAG KEPT IN PHARMACY UNTIL PT IS DISCHARGED FROM FACILITY.
[2017-04-27 12:37] VITALS: BP 133/92
--- NOTE | 2017-04-27 13:50 | NUR ---
ADMITTED FROM ED ON PEC DUE TO MANIC BEHAVIOR. BIBA AFTER TELLING HER BOSS SHE WAS LEAVING TO DRIVE HER CAR OFF FATOU. REPORTS DRINKING 12+CUPS OF COFFEE AND SMOKING MEDICAL MARIJUANA DAILY. REPORTS DRINKING ETOH OCCAISIONALLY. UTOX WAS POSITIVEW FOR CAANNIBIS, AND BARBITUATES. MOOD IS LABILE WITH TANGENTIAL LOOSE THOUGHT PROCESS. DENIES CURRENT THOUGHTS OF SELF HARM. REPORTS NOT TAKING MEDS FOR 5 DAYS.
[2017-04-27 16:16] VITALS: BP 132/80
[2017-04-27 20:05] VITALS: BP 136/94
--- NOTE | 2017-04-27 21:20 | NUR ---
Pt is in bed most of the shift c/o feeling tired, compliant and cooperative with staff. vital signs are stable. Will continue to monitor the pt overnight.
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
[2017-04-28 05:41] VITALS: BP 112/74
--- NOTE | 2017-04-28 06:29 | NUR ---
AT 0540 HOURS PATIENT WAS PLACED IN FOUR POINT HARD RESTRAINTS PER ORDER OF DR. STACY GRANT, DUE TO HIGH AGITATION, DELUSIONS, THROWING HERSELF ON THE FLOOR, THROWING OBJECTS AGAINST THE WALL, SCREAMING, THREATENING TO HARM HERSELF. DAVID WAS GIVEN HER ALBUTEROL INHALER FOR SHORTNESS OF BREATH, WELL PRN SEROQUEL 50MG, NEURONTIN 300MG, AND BENADRYL 50MG PRN, PRIOR TO THE RESTRAINT. WHEN INEFFECTIVE, DR. ANNE ORDERED A ONE TIME DOSE OF ATIVAN 2MG PO. THIS WAS ALSO ADMINSITERED PRIOR TO THE RESTRAINT. A SECOND PRN SEROQUEL 50MG DOSE HAS BEEN ORDERED IF NEEDED. BEFORE THE MEDICATIONS COULD BECOME EFFECTIVE, DAVID LOST CONSTROL AND BEGAN THE ABOVE AGRESSIVE, DELUSIONAL BEHAVIORS. DAVID WAS VERBALIZING EARL DELUSIONS, STATING SHE HAD AN ANEURYSM AND THAT SHE WOULD HOLD HER BREATH TO KILL HERSELF IN FRONT OF STAFF, AND ASKING STAFF TO STOCKPILE SUPPLIES FOR HER PLANNED CAMPING TRIP; SEVERAL TIMES SHE GOT ONTO HER KNEES WITH HER HANDS IN THE AIR, VERBALIZING LATTER-DAY STATEMENTS. DAVID'S MOOD WAS EXTREMELY LABILE, SOBBING ONE MINUTE, THEN IMMEDIATELY STARTING TO LAUGH UNCONTROLLABLY; FACE TO FACE ENCOUNTER DONE. PATIENT IS MEDICALLY STABLE. SKIN INTACT, GOOD CIRCULATION TO ALL FOUR EXTREMITIES, FLUIDS OFFERED, TOILETING OFFERED BUT REFUSED, BREATHING EVEN AND REGULAR; 1:1 SITTER MONITORING AT ALL TIMES.
--- NOTE | 2017-04-28 08:33 | NUR ---
PT URINATED HERSELF AND REQUESTED TO TAKE A SHOWER. SHE AGREED TO BE IN CONTROL OF HER BEHAVIOR AND TO TAKE HER MEDS.RESTRATINTS WERE REMOVED AND PT SHOWERED.WHEN PRESENTED WITH HER MEDS SHE BECAME UPSET AND WAS REFUSING TO TAKE HER PRN MEDS STATING SHE WOULD IF SHE TOOK THEM. SHE WAS HISTRIONIC AND LOUD AND ONLY WHEN TOLD SECURITY WAS CALLED DID PT TAKE HER MEDS. SHE IS REFUSING TO DRESS APPROPRIATELY AT THIS TIME SO SHE IS EATING IN HER ROOM
--- NOTE | 2017-04-28 10:18 | NUR ---
PT REMAINS LABILE ..HISTRIONIC AND DEMANDING. DR GRANT NOTIFIED AND PT IS GIEN ZYPREXA 10MG IM WITH SECURITY ASSIST.WILL MONITOR EFFECT
--- NOTE | 2017-04-28 11:13 | CP SOUTH PROGRESS NOTE PSYCH ---
Psych (Inpt) Progress Note Progress Note Include the following elements, when applicable: Involvement in the active treatment of the patient with behavioral observations of the patient and the patient's response to the treatment. Review of the ongoing treatment process in the context of the treatment plan. Indication of how multi-disciplinary staff members are carrying out the treatment plan. Plans for future interventions and recommendations for revision of the treatment plan. Liaison with other physicians/providers. Progress Note: Notes reviewed, d/w nursing staff. Met with patient this morning. Overnight Tawanda became agitated and required restraint for her safety and the safety of others on the unit. She was removed from restraints shortly thereafter. This morning Tawanda remains quite pressured, physically tense, extremely labile, grandiose and hypersexual. Begins shouting a sentence and skilled nursing through ends up in tears. Significant thought disorganization. Denies SI/HI or desire to hurt self/others on the unit. We discussed the need for medication to help her through her curent episode including a short lived period of ativan, as well as to resume zyprexa. She was agreeable to this currently. She made clear her desire to continue using medical marijuana. Vitals reviewed and within normal limits. No new labs today. MSE: adequately groomed CF laying inappropriately on hospital bed, furiously scribbling in notebook while interviewed, intense eye contact, speech pressured, very difficult to interrupt, loud, mood "I feel fine!!" affect bizarre and labile, TP tangential bordering on flight of ideas, TC - denies IoR, paranoid ideation; denies SI/HI, denies auditory or visual hallucinations, cognition - oriented to name, place, date; insight and judgement are limited A/P: Acute nikolas/mixed episode with psychotic features. Given degree of nikolas and previous need for restraint will add ativan 2 mg PO TID for today. Have switched from seroquel to zyprexa, 5 mg BID + 5 mg Q4H PRN agitation. Appropriate for liberal use of antipsychotic and benzo in attempts to reduce need for restraint and keep patient and unit safe. Continue to monitor closely and continue with 1:1 sitter.
--- NOTE | 2017-04-28 11:56 | NUR ---
PT MET WITH DR GRANT AND AGREED TO TAKE MEDS HE PLANS TO ORDER. SHE DENIED ANY SUICIDAL THOUGHTS WHEN ASKED. HER MOOD IS VERY LABILE. SHE IS DISORGANIZED AND DEMANDING. SHE IS LOUD AT TIMES REQUIRING A LOT OF REDIRECTION.PT USING MANY EXCUSES FOR INAPPROPRIATE AGITATED BEHAVIORS
[2017-04-28 12:37] VITALS: BP 131/73
[2017-04-28 16:20] VITALS: BP 168/92
--- NOTE | 2017-04-28 16:43 | History & Physical ---
General Information and HPI MD Statement: I have seen and personally examined [address] and documented this H&P. The patient is a 41 year old F who presented with a patient stated chief complaint of [suicidal ideation]. Source of Information: patient, psychiatrist Exam Limitations: bipolar disorder History of Present Illness: pt with pmh of bipolar disorder admitted with suicidal ideation. Pt is a smoker and smokes 1 1/2 pack per day of cigarretes, drinks one glass of wine 3-4 times a week. denies any medical issues other than pre diabetes. Pt not answering a lot of my question and is appears hypomaniac. Allergies/Medications Allergies: Coded Allergies: haloperidol (From HALDOL) ("seizure like coma sleep" 04/26/17) Uncoded Allergies: DOG SHAMPOO (HIVES AND ITCHING ALL OVER 03/31/15) Home Med list Albuterol Sulfate (Proair Hfa) 90 MCG HFA.AER.AD 2 PUF INH Q4-6 PRN PRN ASTHMA Lamotrigine (Lamictal) 25 MG TABLET 50 MG PO MENTAL HEALTH (Reported) Prednisone 50 MG TABLET 1 TAB PO DAILY bronchitis Ziprasidone Hydrochloride (Geodon) 20 MG CAPSULE 1 CAP PO BID BIPOLAR ( Reported) Past History Travel History Traveled to [place] past 21 day No Medical History Blood Transfusion Hx: No Neurological: AVM EENT: NONE Cardiovascular: NONE Respiratory: NONE Gastrointestinal: HYPOGLYCEMIA Hepatic: NONE Renal: NONE Musculoskeletal: NONE Psychiatric: anxiety, bipolar disease Endocrine: Hypoglycemia Blood Disorders: NONE Cancer(s): NONE 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 . Psychosocial History Where do you live? Home Primary Language: Guatemalan Smoking Status: Current Everyday Smoker ETOH Use: occasional use Illicit Drug Use: denies illicit drug use Functional Ability ADLs Independent: dressing, eating, toileting, bathing. Ambulation: independent Review of Systems Review of Systems Constitutional: Reports: see HPI. EENTM: Reports: see HPI. Exam & Diagnostic Data Last 24 Hrs of Vital Signs/I&O Vital Signs Date Time Temp Pulse Resp B/P B/P Pulse O2 O2 Flow FiO2 Mean Ox Delivery Rate 04/28 1620 88 168/92 04/28 1237 84 131/73 04/28 0541 92 112/74 04/27 2005 97.6 98 136/94 Physical Exam General Appearance Alert Skin No Rashes HEENT Atraumatic, EOMI Cardiovascular Regular Rate, Normal S1, Normal S2 Lungs Clear to Auscultation Neurological Exam Findings: Normal Gait Cranial Nerves II through XII: grossly intact Assessment/Plan Assessment: Bipolar disorder with suicidal ideation- management as per psychiatry. Nicotine dependence- on nicotine patch. As Ranked By This Provider Problem List: 1. Bipolar disorder 2. Suicidal ideation Miscellaneous Miscellaneous Documentation Attending Case Discussed With: ROSS MANZO,JUVENTINO Harper Primary Care Physician: KALEB MANZO,[facility] Patient sees these Specialists none Level of Patient Care: DESTINY Ramos Resident Review Statement Resident Statement: not seen by resident Attending MD Review Statement Attending Statement Attending MD Statement: examined this patient, reviewed EMR data (avail), discussed with nursing
--- NOTE | 2017-04-28 18:23 | NUR ---
PT IS MOSTLY COOPERATIVE WITH STAFF/PEERS, AND COMPLIANT WITH UNIT RULES. PT NEEDS RE-DIRECTION AT TIMES. BOTH IN AND OUT OF MILIEU AND INTERACTING WITH OTHERS. MOOD IS NOT STABLE, AFFECT IS BRIGHT, COMMUNICATION IS ORGANIZED THOUGH LOUD, HYPERVERBAL, AND PRESSURED. PT IS LABILE AND TEARFUL AT TIMES. BEHAVIOR CAN BE A BIT DISORGANIZED AT TIMES. PT APPETITE IS NORMAL. DENIES SI AT THIS TIME.
[2017-04-28 19:47] VITALS: BP 131/86
--- NOTE | 2017-04-28 22:19 | NUR ---
Patient approached the nurses station and reported she was not taking medications any longer, beginning tomorrow. Patient was advised against stopping any medication abruptly and to discuss any medication issues/changes with the on duty doctor. Patient verbalized understanding.
--- NOTE | 2017-04-29 06:15 | NUR ---
PATIENT SLEPT ALL NIGHT WITH 1:1 SITTER MONITORING; SCHEDULED ZYPREXA 5MG GIVEN AT BEDTIME, AND LATER WITH CONTINUED ANXIETY PRN ZYPREXA 5MG WAS GIVEN WHICH WAS HELPFUL.
[2017-04-29 07:43] VITALS: BP 136/79
[2017-04-29 12:11] VITALS: BP 130/86
--- NOTE | 2017-04-29 12:50 | CP SOUTH PROGRESS NOTE PSYCH ---
Psych (Inpt) Progress Note Progress Note Include the following elements, when applicable: Involvement in the active treatment of the patient with behavioral observations of the patient and the patient's response to the treatment. Review of the ongoing treatment process in the context of the treatment plan. Indication of how multi-disciplinary staff members are carrying out the treatment plan. Plans for future interventions and recommendations for revision of the treatment plan. Liaison with other physicians/providers. Progress Note: Notes reviewed, d/w nursing staff. Met with patient this morning. Far more organized and cooperative today than yesterday however remains highly labile, impulsive, hypersexual. Perseverative on upcoming court date and being released by Sunday. She was accepting of zyprexa and ativan yesterday. Per reports was able to sleep much of the night. She denies SI and HI today and denies AVH. Vitals reviewed and within normal limits. No new labs today. MSE: adequately groomed CF walking brisky around the unit accompanied by 1:1, intense eye contact, speech pressured, very difficult to interrupt, loud, mood "I don't know - I just need to go to court!" affect bizarre and labile, TP tangential, TC - denies IoR, paranoid ideation; denies SI/HI, denies auditory or visual hallucinations, cognition grossly intact, insight and judgement are severely limited A/P: Some improvement in the intensity of manic and psychotic features. Increasingly organized today though remains gravely disabled. From Dr. Metzger's admit note I see she has been on zyprexa in the past with a significant amount of weight gain. Will continue zyprexa for today (5 mg QAM + 10 mg QPM + PRN agitation) given its good efficacy for acute nikolas though defer to primary team as to whether to cross taper to a more weight neutral med. Will also reduce the standing ativan that has been helpful for her agitation today from 2 mg TID to 1.5 mg TID. I believe she continues to need a 1:1 due to her lability to help with her safety.
--- NOTE | 2017-04-29 13:01 | NUR ---
Patient is present in the unit compliant with medication but unable to handle some of the group therapies/ activities. Patient is observed to have some hyperactive and manic mood/behavior at verious intervals but redirectable, Patient continues to make some excessive requests/demands and easily gets angry,hyperverbals and throw some "F" words and raise her middle fingers when her demands are not met. Patient reported good night sleep and appetite, denies any AH/VH, thought of self-harm and to someone else.
[2017-04-29 16:10] VITALS: BP 136/92
--- NOTE | 2017-04-29 18:47 | NUR ---
PT IS MOSTLY CALM, COOPERATIVE WITH STAFF AND PEERS, AND COMPLIANT WITH UNIT RULES. ON OCCASSION PT DISPLAYS OUTBURSTS, BUT THESE CAN USUALLY BE RE-DIRECTED. HYPERACTIVE, OFTEN PACING ABOUT UNIT AND TALKIGN WITH OTHERS. OFTEN IN MILIEU AND INTERACTING. MOOD IS UNSTABLE, AFFECT IS BRIGHT, COMMUNICATION IS ORGANIZED, THOUGH PRESSURED, LOUD, AND HYPERVERBAL AT TIMES. APPETITE IS NORMAL. PT DENIES SI AT THIS TIME.
[2017-04-29 19:51] VITALS: BP 135/89
[2017-04-30 08:07] VITALS: BP 130/85
[2017-04-30 12:02] VITALS: BP 146/92
--- NOTE | 2017-04-30 13:08 | NUR ---
PT REMAINS ON 1:1. PT OFTEN NEEDS REDIRECTION IN THE COMMUNITY WITH HER BEHAVIORS. PT OFTEN HAS LOUD OUTBURSTS OF BEHAVIOR THAT NEEDS TO BE REDIRECTED BY STAFF. SOME OF THESE OUTBURSTS ARE DIRECTED AT OTHER PTS AND PT HAS BEEN TO REMOVED FROM THE ROOM OR SITUATION. PT IS ATTENDING SOME GROUPS, BUT NEEDS SOME REDIRECTION. PT DENIES SI THOUGHTS.
[2017-04-30 16:00] VITALS: BP 146/92
--- NOTE | 2017-04-30 18:17 | CP SOUTH PROGRESS NOTE PSYCH ---
See Addendum Psych (Inpt) Progress Note Progress Note Include the following elements, when applicable: Involvement in the active treatment of the patient with behavioral observations of the patient and the patient's response to the treatment. Review of the ongoing treatment process in the context of the treatment plan. Indication of how multi-disciplinary staff members are carrying out the treatment plan. Plans for future interventions and recommendations for revision of the treatment plan. Liaison with other physicians/providers. Progress Note: I discussed this patient's progress to date, current mental status, treatment process in the context of the treatment plan, and discharge planning with staff/ team in the daily morning inpatient team meeting. I also met with the patient myself in individual session. Current Medications Sig/Yaneth Start time Last Medication Dose Route Stop Time Status Admin Albuterol Sulfate 2 PUF Q4-6 PRN PRN 04/27 1245 AC 04/28 INH 0541 Budesonide/ 2 PUF BID 04/27 2200 AC 04/30 Formoterol Fumarate INH 0741 Gabapentin 300 MG Q2 HRS NEEDED PRN 04/27 1715 AC 04/30 PO 0740 Lamotrigine 50 MG AT BEDTIME 04/27 2200 AC 04/29 PO 2030 Lorazepam 1.5 MG 22004/30 2200 AC PO 04/30 2201 Lorazepam 1 MG 0800,1400,04/30 2000 AC PO Lorazepam 0.5 MG .STK-MED ONE 04/30 0740 DC PO 04/30 0741 Lorazepam 1.5 MG TID 04/29 1600 DC 04/30 PO 1543 Methylprednisolone 4 MG 1600 04/30 1600 DC 04/30 PO 04/30 1601 1544 Nicotine 2 MG Q2 HRS NEEDED PRN 04/29 1300 AC PO Nicotine 21 MG DAILY 04/27 1500 AC 04/30 TOP 0741 Olanzapine 10 MG DAILY 05/01 1000 AC PO Olanzapine 5 MG DAILY 04/30 1000 DC 04/30 PO 0740 Olanzapine 10 MG AT BEDTIME 04/29 2200 AC 04/29 PO 2030 Olanzapine 5 MG Q4P PRN 04/28 1045 AC 04/29 PO 0946 Vital Signs Date Time Temp Pulse Resp B/P B/P Pulse O2 O2 Flow FiO2 Mean Ox Delivery Rate 04/30 1600 82 146/92 04/30 1202 81 146/92 04/30 0807 97.7 85 130/85 04/29 1951 97.7 82 135/89 A: Chart, progress notes, vital signs, labs and medication list reviewed. Borderline HTN. HR within normal limits. No new lab results today. TSH ordered for tomorrow AM; last completed in June of 2016. Patient is a 41-year-old female with a hx of Bipolar disorder MRE mixed with psychotic features who is well known to [facility] and to this instructional writer from prior [facility] admissions/IOP. 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 In the ED she presented manic, highly labile, religiously preoccupied and delusional. Patient was admitted on a PEC to [facility]. Of note, she was recently discharged from [facility] in March 2017 d/t non-adherence with IOP treatment. Patient stated she had been scheduled to start therapy/medication management at [facility] the day after being admitted to here. The patient was placed in 4-point restraints on 04/28/17 after becoming extremely agitated, threatening self-harm on the unit, throwing objects against the wall, throwing herself to the floor, and refusing to dress appropriately. She received IM emergency medication. Scheduled po Seroquel was switched to po Zyprexa. No further restraint episodes since. Reviewed patient's progress to date with nursing staff. She was described as less labile than over the weekend. No longer hypersexual. Somewhat less impulsive but still intrusive. Now attending groups. Showing improved behavioral and physical control today. On encounter today, patient presented with continued mood lability - tearful, irritable, elevated. However, mood lability appeared to a lesser degree than described in previous progress notes. Oriented x 3. Alert. Speech moderate in rate, tone and volume; non-pressured. Made good eye contact. Stated the reason she was brought to the hospital was because she told her boss she was suicidal which she intented as a joke. When asked if she thought this was a good idea in hindsight, she became tearful, cried uncontrollably, stated that she feels overwhelmed by multiple stressors (i.e. upcoming court date on Sunday regarding an arrest in [place] from 3 years ago; recent eviction from her mother's home; concern of losing custody over her children; fear of losing her job at [employer]). Patient continued to perseverate on wanting to discharge prior to Sunday so she can attend scheduled court date. Patient was informed that she will continue to be monitored on a daily basis for discharge readiness; it was explained that if she does not discharge in time for Sunday's court date that a letter will be sent by [facility] informing the court that she is in the hospital. The patient denied present suicidal and homicidal ideation. She denied auditory and visual hallucinations. No evidence of hyperreligiousity, paranoia, or delusional thought content. Patient expressed concern for weight gain on Zyprexa, however, stated she feels "stable" on this medication. Reviewed with patient that we will use this medication to further stabilize mood symptoms, as she is presently against starting a second mood stabilizer (Li, CBZ, VPA). She was agreeable to this option; also educated patient that over time this medication could gradually be tapered down on an outpatient basis. Patient making slow progress. Remains on 1:1 ATC for recently impulsive and agitated behaviors, now showing mild improvement in behavioral control with medication adherence. Patient continues to require inpatient hospitalization for further mood stabilization and safety. P: -cont. 1:1 ATC for recent impulsive & agitated behavior/poor boundaries. Reassess daily the need to continue this level of monitoring. -increase Zyprexa 5mg QAM and 10mg QHS to 10mg BID for mood stabilization. -cont. providing education on mood stabilizers (Li, CBZ, VPA); if pt agreeable consider starting one. -arrange family meeting collette per C[employer]ER. -encourage IOP post-discharge ([facility], patient's preference); patient presently resistent. -cont. Medrol taper for severe bronchitis. -TSH ordered for tomorrow AM.
--- NOTE | 2017-04-30 18:19 | SOCIAL WORKER PROG NOTE PSYCH ---
Social Work Progress Note Progress Note 5:55pm Sw met with pt. Pt stated that her current inpt admission is following a comment she made that she was going to crash her car, which she stated that she was not serious about and did not intend on following through with. Pt denied current SI/HI/AH/VH. She stated that her goal during this inpt admission is "learning coping skills to deal with emotions when they get a little high." She stated that she has begun reading a DBT book and is benefitting from mindfulness and distraction techinques. This sw inquired about interest in finding a DBT group. Pt stated that she is unable to attend [facility] due to her work hours which fluctuate from shift to shift. Pt expressed interest in services through [facility] in [place]. This Sw will contact them during regular business hours. Pt reports that she is acclimating to this unit and agreed to inform staff about any concerns, safety or otherwise. Pt would like to schedule a family meeting with her mother. Sw will speak with Shoshana Jalloh regarding a family meeting and discharge plans. Pt reported feeling anxious. She was spontenaous, cooperative and engaged during this meeting. Sw spoke briefly with Shoshana Jalloh. A family meeting will be scheduled. A discharge date is not set at this time.
--- NOTE | 2017-04-30 18:52 | NUR ---
PT IS COOPERATIVE WITH STAFF AND PEERS, AND COMPLIANT WITH UNIT RULES. BOTH IN AND OUT OF MILIEU, PT IS SLIGHTLY HYPERACTIVE, PACING ABOUT AND INTERACTING WITHNOTHERS TO A GREAT EXTENT. MOOD IS STABLE, AFFECT APPEARS BRIGHT, SLIGHTLY LABILE AT TIMES. COMMUNICATION IS ORGANIZED AND APPEARS NORMAL IN ALL RESPECTS, AND APPETITE IS NORMAL. PT DENIES SI AT THIS TIME.
[2017-04-30 19:52] VITALS: BP 137/97
[2017-05-01 07:34] VITALS: BP 152/93
--- NOTE | 2017-05-01 11:42 | CP SOUTH PROGRESS NOTE PSYCH ---
See Addendum Psych (Inpt) Progress Note Progress Note Include the following elements, when applicable: Involvement in the active treatment of the patient with behavioral observations of the patient and the patient's response to the treatment. Review of the ongoing treatment process in the context of the treatment plan. Indication of how multi-disciplinary staff members are carrying out the treatment plan. Plans for future interventions and recommendations for revision of the treatment plan. Liaison with other physicians/providers. Progress Note: PSYCHIATRIST (COVERING) NOTE, 05/01/2017: I discussed this patient's interval progress since last ITTM with charge nurse who reported better sleep last night, some improvement in manic symptoms, less pressure, disorganization, more redirectable in general. Patient still on 1:1 sitter for safety. I reviewed the detailed progress note of 04/30/2017 by Diana Resendez APRN. I found patient to be still quite pressured, very tangential to loose, rambling, labile and somewhat irritable in mood, still clearly in manic phase of disorder with considerable denial of the seriousness of her disorder and current condition. Patient was perseverative on the issue of making it to a court date in [place] on 05/04/2017; this appearance apparently relates to an incident a few years ago when patient picked up another couple's baby while in a manic psychotic state. I tried to discourage patient from even thinking of going to that hearing, that she won't be sufficiently stable and that if she arrives at Court appearing anything like she does currently that will likely make a satisfactory resolution of the case less likely at that time. I spoke with patient extentively about mood stabilizers, the one she is currently taking (Lamictal, 50mg/day), as well as [place] and Tegretol; I could not interest her in another [place] trial at this time but following further description of R/B/SE patient did agree to the addition of Tegretol to her medication regimen, starting this evening with re- evaluation of dose tomorrow, 05/02/2017. I decided to continue current dose of regular Ativan for at least another day and added an Ativan back-up order to the PRN Zyprexa.
[2017-05-01 12:18] VITALS: BP 143/93
--- NOTE | 2017-05-01 13:48 | NUR ---
PT REMAINS ON A 1:1 FOR SAFETY/REDIRECTION/BOUNDARIES/WHAT IS AND IS NOT APPROPRIATE AND DOES ACCEPT IT WELL. MOOD IS STABLE AND FULL RANGE BRIGHT AFFECT, OVERALL NO ISSUES AND COMPLAINTS REPROTED OR OBSERVED, PARTICIPATING IN GROUPS, OVERALL COOPERATIVE.
[2017-05-01 15:57] VITALS: BP 144/84
--- NOTE | 2017-05-01 18:11 | NUR ---
PT REMAIN ON 1:1. PT HAS HAD NO BEHVIORAL ISSUES THIS SHIFT AND HAS BEEN COOPERATIVE WITH UNIT RULES. PT HAS SPEND SOME TIME OUT IN THE COMMUNITY INTERACTING WELL WITH STAFF AND PEERS. PT SOMETIMES NEEDS TO REMINDED TO KEEP VOICE DOWN WHEN SHE GETS EXCITED. PT IS ATTENDING ALL GROUPS. PT MOOD IS STABLE WITH A BRIGHT TO FULL RANGE AFFECT. PT DENIES SI THOGUHTS.
[2017-05-01 19:44] VITALS: BP 141/94
--- NOTE | 2017-05-01 21:52 | NUR ---
Patient's room searched by staff and security after her 1:1 sitter reported that Tawanda had asked her for a foxing closer, and told her that another patient's visitor had given her a cigarette; when asked about this, she stated that she had been lying; room search complete, no contraband found.
--- NOTE | 2017-05-02 06:31 | NUR ---
PATIENT SLEPT ALL NIGHT WITH 1:1 SITTER MONITORING AT ALL TIMES.
[2017-05-02 08:06] VITALS: BP 124/88
--- NOTE | 2017-05-02 11:06 | SOCIAL WORKER PROG NOTE PSYCH ---
Social Work Progress Note Progress Note 10:30am 11:05am Sw contacted pt's mother, Lindsay Malagon, to schedule a family meeting. Meeting has been scheduled for 05/03/17 at 1pm. Pt's mother stated that she is in the process of evicting her daughter and would like to discuss this further during the meeting tomorrow.
--- NOTE | 2017-05-02 11:48 | NUR ---
PT VISIBLE IN THE MILIEU TODAY. SHE WAS TAKEN OFF 1 TO 1 AFTER TEAM MEETING THIS MORNING. HER GOAL WAS GROUPS AND STAY IN CONTROL OF HER EMOTIONS. PT HAS BEEN GOING TO GROUPS THROUGHOUT THE DAY. SHE NEEDS SOME REDIRECTION FROM STAFF AT TIMES. PT DENIES THOUGHTS OF HURTING HERSELF WHEN ASKED.
[2017-05-02 12:18] VITALS: BP 143/96
--- NOTE | 2017-05-02 13:27 | CP SOUTH PROGRESS NOTE PSYCH ---
See Addendum Psych (Inpt) Progress Note Progress Note Include the following elements, when applicable: Involvement in the active treatment of the patient with behavioral observations of the patient and the patient's response to the treatment. Review of the ongoing treatment process in the context of the treatment plan. Indication of how multi-disciplinary staff members are carrying out the treatment plan. Plans for future interventions and recommendations for revision of the treatment plan. Liaison with other physicians/providers. Progress Note: Medication list reviewed. Case and treatment plan discussed in team meeting. Staff reports that the patient remains manic. Required restraints for 2 hours on Sunday morning after throwing a water bottle. Described as hypersexual, demanding. Mother reportedly will not accept the patient home. Patient seen at 10:27 a.m. with Emperatriz Harper LCSW. Patient reports "doing great, never felt better." Affect is upbeat and at least hypomanic. Doesn't think she needs a sitter and wants sitter discontinued. She is unsure about the degree of her medication compliance prior to admission. I advised her to quit MJ use. Patient is puffing on a straw like it is a cigarette. She is not interested in lithium because of blood tests. She feels that lithium did not work for her in the past. Refuses depot neuroleptic because she doesn't like needles. Knows that Zyprexa can lead to weight gain. Works for [employer]. Reports being on disability. 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 Sad 01/05. Anxiety 11/07. Denies feeling hopeless, helpless , worthless or guilty. Denies SI, HI, AH, VH and PI. Ox3. Sleep: "perfect." Appetite: "too much, but fine." Energy: "great, through the roof, taking naps, not manic." Patient wants discharge tomorrow afternoon. Claims this weekend it the / anniversary of her father. Then went on to say he in August and was 05/19. Then said this weekend will be important because her father liked the 01 of May. Then said the pressure for discharge is actually related to a court date. I explained it would be prudent to have a continuance, since her current mental state might not help her court case, and that we can furnish her an excuse note for court. Patient believes her mother will take her back home. Plans to follow up at [facility] for individual therapy and once-a-week group. IMPRESSION: Hypomanic. We will now discontinue sitter. I have ordered mouth checks. I advised the patient that discharge tomorrow would probably be premature. Continue present treatment plan.
[2017-05-02 16:15] VITALS: BP 130/58
--- NOTE | 2017-05-02 18:08 | NUR ---
PT IS COOPERATIVE WITH STAFF AND PEERS, AND COMPLIANT WITH UNIT RULES. OFTEN IN MILIEU, INTERACTING TO A GREAT EXTENT WITH OTHERS. MOOD IS STABLE, AFFECT IS BRIGHT, IS LABILE AND TEARFUL AT TIMES. COMMUNCIATION IS ORGANIZED AND APPEARS NORMAL IN ALL RESPECTS - CAN BE LOUD AND PRESSURED AT TIMES. APPETITE IS NORMAL. PT DENIES SI AT THIS TIME.
--- NOTE | 2017-05-02 18:35 | SOCIAL WORKER PROG NOTE PSYCH ---
Social Work Progress Note Progress Note 10:27am Dr. Cortés and this conventional underwriter met with pt. Pt reported positive mood. Medications were discussed. Pt is not interested in [place] due to the lab work involved or IM medications due to "I don't like needles." Pt acknowledged that some medications may cause weight gain and stated, "my mental health is more important than my stomach." Please see Dr. Cortés's note. 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 She inquired about discharging tomorrow first identifying the pressure to due so as related to the / anniversary of her father. She explained later that this was not accurate, but enjoyed the May 01 holiday. Pt later stated that her actual reason for requesting discharge was due to a court date that is scheduled for 05/04/17. Pt's pressure regarding this appeared to decrease upon learning that a letter could be provided to the court on her behalf regarding her current hospitalization. Towards the end of today's meeting, pt discussed wanting to coordinate the building of a garden on the behalf of Dr. Marin out of appreciation of the patients at . Pt signed a RODRI for her mother, who was contacted regarding a family session. The family session has been scheduled for 05/03/17 at 1pm.
[2017-05-02 19:50] VITALS: BP 127/80
--- NOTE | 2017-05-03 04:27 | NUR ---
SLEPT WELL AWAKE C/O SORE THROAT HOD CALLED AWAITING CALL BACK.
--- NOTE | 2017-05-03 07:55 | CP SOUTH PROGRESS NOTE PSYCH ---
Psych (Inpt) Progress Note Progress Note Include the following elements, when applicable: Involvement in the active treatment of the patient with behavioral observations of the patient and the patient's response to the treatment. Review of the ongoing treatment process in the context of the treatment plan. Indication of how multi-disciplinary staff members are carrying out the treatment plan. Plans for future interventions and recommendations for revision of the treatment plan. Liaison with other physicians/providers. Progress Note: I discussed this patient's progress to date, current mental status, treatment process in the context of the treatment plan, and discharge planning with staff/ team in the daily morning inpatient team meeting. I also met with the patient myself in individual session. Current Medications Sig/Yaneth Start time Last Medication Dose Route Stop Time Status Admin Albuterol Sulfate 2 PUF Q4-6 PRN PRN 04/27 1245 AC 04/28 INH 0541 Budesonide/ 2 PUF BID 04/27 2200 AC 05/02 Formoterol Fumarate INH 1124 Carbamazepine 200 MG BID 05/02 2200 AC 05/02 PO 2123 Carbamazepine 200 MG ONCE ONE 05/02 1345 DC 05/02 PO 05/02 1346 1425 Carbamazepine 200 MG 2200 05/01 2200 DC 05/01 PO 2127 Ibuprofen 400 MG ONCE ONE 05/03 0445 DC 05/03 PO 05/03 0446 0504 Lamotrigine 50 MG 2200 05/01 2200 AC 05/02 PO 2124 Lorazepam 1 MG Q4H PRN 05/01 1230 AC PO Lorazepam 1 MG 0800,1400,05/01 0800 AC 05/02 PO 1939 Nicotine 2 MG Q2H PRN 05/01 1230 AC PO Nicotine 21 MG DAILY 04/27 1500 AC 05/02 TOP 0725 Olanzapine 10 MG 0800,0 05/01 2200 AC 05/02 PO 2124 Olanzapine 2.5 MG Q4P PRN 04/30 1945 AC PO Vital Signs Date Time Temp Pulse Resp B/P B/P Pulse O2 O2 Flow FiO2 Mean Ox Delivery Rate 05/02 1950 98.1 93 127/80 07/ 1615 91 130/58 07/05 1218 91 143/96 07/05 0806 97.1 76 124/88 A: Chart, progress notes, vital signs, labs and medication list reviewed. Vital signs within normal limits. TSH w/ reflex also in range. 1:1 observation discontinued on 05/02/17. EKG reviewed, normal sinus rhythm, QTc = 473. Patient was started on Tegretol 200mg BID on 05/01/17 for mood stabilization by covering psychiatrist, Dr. Marin. Patient refused a retrial of [place] due to blood tests. She stated to covering psychiatrist, Dr. Cortés, on 05/02/17, that [place] did not work for her in the past. She further refused depot neuroleptics because she does not like needles. Reviewed the patient's treatment progress to date with nursing staff. Patient is described as somewhat labile. Demanding at times. Selectively stealing objects on unit. Requires frequent redirection. No evidence of hypersexual behavior today. Met with patient at 08:15AM. Presents in good spirits, reports feeling "calm, chill." Affect bright, full. Remains hypomanic. Believes "I don't have bipolar anymore because Suman healed me." Speech more regular in rate, tone and volume; non-pressured. Eye contact is good. Shows improved behavioral and physical control since my last encounter with the patient on Sunday. Shares that she is no longer on 1:1 and is pleased by this. She is concerned about the family meeting scheduled for later today with her mother, "my mom is tough; she loves me, but she doesn't get me." Despite this, patient feels her mother will allow her to return home. She mentions wanting to discharge before tomorrow to attend a court date in [place] and also related her fear of losing her [employer] job. Reviewed with patient that a continued hospital stay would likely benefit her court case and ability to function outside of the hospital; informed patient that a letter could be sent to court by [facility]. Patient accepted this information and was able to continue in conversation about other topics. States sleep is "so good." States energy is "great! I told the doctor yesterday I'm not manic." Reports appetite is "big." She denies suicidal and homicidal ideation. Denies auditory and visual hallucinations. Thought process is linear, goal-directed. No evidence of paranoia or flight of ideas. Patient denies SEs or problems with medication since starting Tegretol. She is agreeable to continue taking. Also agreeable to continue Zyprexa. She verbalized understanding that both medications may contribute to wt gain. Patient making slow progress. Continues to exhibit hypomania. Advised patient that she will not be discharged tomorrow. Informed her of probable cause process. Patient continues to require inpatient hospitalization for stabilization and safety. P: -family meeting at 1PM today w/ pt and mother. -cont. Tegretol 200mg BID for mood stabilization. Level and hemoglobin A1C on 04/05/17. -cont. Zyprexa 10mg BID for mood stabilization/clear thoughts. Utilize prns as indicated. -cont. Lamictal as ordered. -decrease standing Ativan from 1mg TID to 0.5mg TID. Utilize prns as indicated.
[2017-05-03 07:56] VITALS: BP 130/84
--- NOTE | 2017-05-03 10:12 | SOCIAL WORKER PROG NOTE PSYCH ---
Social Work Progress Note Progress Note [address] [id number] [address] [id number] Pended Authorization # Client Authorization # Type of Request [id number] CONCURRENT Date of Admission/ Start of Services Requested From Submission Date 04/27/2017 05/03/2017 05/03/2017
[2017-05-03 12:26] VITALS: BP 116/90
--- NOTE | 2017-05-03 13:50 | SOCIAL WORKER PROG NOTE PSYCH ---
Social Work Progress Note Progress Note 1:05pm Shoshana Jalloh APRN and this Sw met with pt and her mother for a family meeting. Pt's mother presented the pt with "follow up eviction paperwork" and explained that a court date is pending regarding the eviction. Pt's mother stated "for now she can return home" (upon discharge from the hospital). Pt stated that she has another court date scheduled for 05/04/17 in [facility]. Pt will sign a RODRI in order for a letter to be mailed to the court, at pt's request, to inform of current inpatient admission. Preliminary discharge plans were also discussed. Pt was in agreement with returning to [facility] and was interseted in case management services. She stated that she is unable to attend IOP due to a work schedule, however, was unsure if she is still employed. 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 Pt inquired about a discharge date and became upset and tearful upon not being informed of a definite date. She was in agreement with reviewing progress and re-visiting a discharge date with Shoshana Jalloh on morning of 05/07/17.
--- NOTE | 2017-05-03 14:13 | NUR ---
PT IS LABILE AND IRRITABLE. SHE IS AT THE NURSES DESK OFTEN ASKING FOR FAVORS AND REQUIRES LOTS OF REDIRECTION. SHE IS COMPLIANT WITH HER MED REGIME. SHE DENIES SUICIDAL THOUGHTS. SHE WAS TEARFUL FOLLOWING A FAMILY MEETING WITH HER MOTHER. SHE REPORTED THAT SHE IS BEING EVICTED AND THIS IS A BIG STRESSOR FOR HER. SHE OFTEN USES HER ILLNESS AN EXCUSE TO BEHAVE INAPPROPRIATELY
--- NOTE | 2017-05-03 16:11 | SOCIAL WORKER PROG NOTE PSYCH ---
Social Work Progress Note Progress Note 4:05pm This race and sports book writer was contacted by Rekha at [facility] by phone inquiring about medication doses as they were not included on the online insurance review. Inpt authorization was granted with a review date of 05/07/17.
[2017-05-03 16:21] VITALS: BP 131/88
--- NOTE | 2017-05-03 19:23 | SOCIAL WORKER PROG NOTE PSYCH ---
Social Work Progress Note Progress Note 3:30pm This web content writer met with patient in order for patient to sign a ORDRI for [facility]. The letter was drafted and reviewed by the patient. It was faxed to the court on 05/03/17 at 3:45pm. Fax number was confirmed with the court prior to faxing.
[2017-05-03 20:09] VITALS: BP 124/71
--- NOTE | 2017-05-03 20:42 | NUR ---
PT IS VISIBLE ON UNIT, VERY SOCIAL WITH PEERS AND MAKING PHONE CALLS THROUGHOUT EVENING. COOPERATIVE AND COMPLIANT WITH STAFF. AT TIMES PT IS HYPERVERBAL AND PRESSURED BUT RESPONDS WELL TO REDIRECTION. NO COMPLAINTS OR SI REPORTED. PT HAS A STABLE MOOD AND FULL RANGE AFFECT.
--- NOTE | 2017-05-04 04:22 | NUR ---
SLEPT WELL NO ISSUES.
[2017-05-04 08:15] VITALS: BP 136/92
--- NOTE | 2017-05-04 11:11 | NUR ---
PT HAS HAD AN ELEVATED MOOD AND APPEARS LESS IRRITABLE THAN PAST OBSERVATIONS. SHE DOES MAKE REQUESTS TO STAFF IN REGARDS TO GROUPS, TOPICS AND DISCUSSIONS. FOR THE MOST PART, THESE REQUESTS CAN BE MADE BUT IN THE CASE THEY ARE NOT SHE CAN ACT OUT PRESSURED, RAPID AND DISORGANIZED. PT IS REDIRECTABLE BUT MAY REQUIRE SOME JACKSON-NESS FROM STAFF. THERE HAVE BEEN NO MAJOR ISSUES ON THE UNIT TODAY. PT HAS BEEN APPROPRIATE AND DENIES ANY THOUGHTS OF SI AT THIS TIME.
[2017-05-04 12:11] VITALS: BP 117/73
[2017-05-04 16:27] VITALS: BP 148/82
--- NOTE | 2017-05-04 16:36 | CP SOUTH PROGRESS NOTE PSYCH ---
Psych (Inpt) Progress Note Progress Note Include the following elements, when applicable: Involvement in the active treatment of the patient with behavioral observations of the patient and the patient's response to the treatment. Review of the ongoing treatment process in the context of the treatment plan. Indication of how multi-disciplinary staff members are carrying out the treatment plan. Plans for future interventions and recommendations for revision of the treatment plan. Liaison with other physicians/providers. Progress Note: I discussed this patient's progress to date, current mental status, treatment process in the context of the treatment plan, and discharge planning with staff/ team in the daily morning inpatient team meeting. I also met with the patient myself in individual session. Current Medications Sig/Yaneth Start time Last Medication Dose Route Stop Time Status Admin Acetaminophen 650 MG Q6-PRN PRN 05/04 0945 AC PO Albuterol Sulfate 2 PUF Q4-6 PRN PRN 04/27 1245 AC 04/28 INH 0541 Budesonide/ 2 PUF BID 04/27 2200 AC 05/04 Formoterol Fumarate INH 0919 Carbamazepine 200 MG BID 05/02 2200 AC 05/04 PO 0918 Ibuprofen 400 MG ONCE ONE 05/03 2145 DC PO 05/03 2146 Lamotrigine 50 MG 0 05/01 2200 AC 05/03 PO 2135 Lorazepam 0.5 MG 0800,1400,05/03 1400 AC 05/04 PO 05/08 0759 1359 Lorazepam 1 MG Q4H PRN 05/01 1230 AC PO Nicotine 2 MG Q2H PRN 05/01 1230 AC PO Nicotine 21 MG DAILY 04/27 1500 AC 05/04 TOP 0918 Olanzapine 10 MG 0800,05/01 2200 AC 05/04 PO 0918 Olanzapine 2.5 MG Q4P PRN 04/30 1945 AC 05/03 PO 1011 Vital Signs Date Time Temp Pulse Resp B/P B/P Pulse O2 O2 Flow FiO2 Mean Ox Delivery Rate 05/04 1627 91 148/82 05/04 1211 84 117/73 05/04 815 97.2 84 136/92 05/03 2009 97.7 94 124/71 A: Chart, progress notes, vital signs, labs and medication list reviewed. Vital signs within normal limits. Met with patient at 4:40PM. Patient reports having a "great" visit last night with her oldest daughter, Alexa. States she gave her crafts and cards she made on unit to give to her brother and sister. She reports feeling "good." States she felt yesterday's meeting with her mother was productive, despite receiving "tough love." States she knows "my mom loves me and wants to see me better." Today, she ackowledged having Bipolar Disorder; states she plans to follow up with [facility] for continued treatment following discharge and stay on medications. Affect bright, full, non-labile. Speech normal in rate, tone and volume; non-pressured. Eye contact appropriate. She offered no complaints. Rates anxiety a 4/10 (10 being the worst), "I really want to go home." Rates depression/sadness a 2/10 (10 being the worst), "I miss my kids." Denies feeling hopeless, helpless, worthless, guilty. 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 Describes energy level as "a little unmotivated, maybe tired." States her sleep is "perfectly fine." Reports her appetite "is through the roof." Plans to exercise following discharge to counter SE of weight gain from medications. Denies SI and HI. Denies AH and VH. No evidence of paranoia or tracie delusions. Patient making slow progress. Remains slightly hypomanic, but beginning to level off. Will continue to monitor. P: -Continue monitoring on unit for safety, mood and psychosis. -CBZ level scheduled tomorrow morning. Please check; if subtherapeutic please increase. -Continue mouth checks as ordered. -Consider discharge on Sunday, if mood is stable. -Continue Ativan taper as ordered, as patient is no longer exhibiting agitation or significant impulsivity.
--- NOTE | 2017-05-04 17:17 | NUR ---
PT IS COOPERATIVE WITH STAFF AND PEERS, AND COMPLIANT WITH UNIT RULES. SLIGHTLY HYPERACTIVE, OFTEN PACING ABOUT UNIT AND TALKING WITH OTHERS TO A SIGNIFICANT EXTENT. OFTEN IN MILIEU. MOOD IS STABLE, AFFECT APPEARS BRIGHT, CAN BE AT TIMES SLIGHTLY LABILE AND TEARFUL. COMMUNICATION IS ORGANIZED AND APPEARS NORMAL IN ALL RESPECTS, CAN BE SLIGHTLY LOUD AT TIMES. APPETITE IS NORMAL. PT DENIES SI AT THIS TIME.
--- NOTE | 2017-05-04 18:23 | SOCIAL WORKER PROG NOTE PSYCH ---
Social Work Progress Note Progress Note 4:10pm This news writer met with patient. Patient stated upon the start of this meeting, "I 'm a little ADD. Sometimes I am random. I'm an abstract-random person." Patient went on to say that her job at [employer] "is no more," however, later contradicted herself by stating that she was informed by her boss to call that individual tomorrow to discuss her status at her job. Patient and this news writer discussed discharge plans. She expressed interest in returning to [facility] when she had been working with Anthony Gamble for individual therapy. Patient stated that she would be unable to attend IOP due to her work schedule. This news writer encouraged her to consider IOP especially if she finds that she will be looking for a new job. Pt appeared to be in agreement with this. This news writer will follow up with the treatment team regarding disposition and a possible discharge date. [facility] will also be contacted to follow up regarding discharge planning.
[2017-05-04 20:03] VITALS: BP 121/70
--- NOTE | 2017-05-05 06:59 | NUR ---
PATIENT SLEPT MOST OF THE NIGHT, BUT AT 0450, PATIENT WAS AWAKE AND TALKING LOUDLY, ASKING STAFF IF THE COFFEE WAS READY; SHE BECAME AGITATED AND TEARFUL WHEN TOLD IT WAS TOO EARLY FOR COFFEE; HER MOOD RAPIDLY BECAME MORE ANXIOUS AND LABILE, SHE BECAME INCREASINGLY FOCUSED ON WHAT THE STAFF WOULD DOCUMENT ABOUT HER, AND ASKING IF IT WOULD DELAY HER DISCHARGE; SHE FINALLY AGREED TO TAKE HER PRN ZYPREXA ALONG WITH HER PRN ATIVAN, WHICH WAS HELPFUL IN LEVELING HER MOOD. DR. CHRISTOPHER UPDATED AND IS AWARE, NO NEW ORDERS AT THIS TIME.
[2017-05-05 08:09] VITALS: BP 157/84
[2017-05-05 12:11] VITALS: BP 130/56
--- NOTE | 2017-05-05 14:34 | NUR ---
PT IS STABLE WITH FULL RANGE OF AFFECT. PT HAS BEEN ATTENDING GROUPS ALL MORNING. PT STATED THAT DUE TO A NEW MEDICATION SHE IS VERY LETHARGIC TODAY AND IS INQUIRING ABOUT SWITCHING THE MEDICATION TO BE TAKEN BEFORE BED INSTEAD OF FIRST THING IN THE MORNING. PT IS APPROPRIATE TO THE UNIT AND HAS NOT REQUIRED MUCH/ANY REDIRECTION THIS SHIFT. VS ARE STABLE AND DENIES ANY SI/HI TO THIS MHW.
[2017-05-05 16:19] VITALS: BP 138/70
--- NOTE | 2017-05-05 18:42 | NUR ---
PT HAS BEEN APPROPRIATE ON THE UNIT AND ENJOYED A VISIT WITH HER DAUGHTER. SHE HAS CONTINUED TO BE SOCIAL WITH STAFF AND PEERS AND PROVIDES FEEDBACK TO OTHERS. SHE HAS BEEN COOPERATIVE WITH UNIT RULES AND HAS NOT REQUIRED MUCH, IF ANY REDIRECTION FROM THIS MHW. PT HAS DENIED ANY THOUGHTS OF SI AT THIS TIME.
[2017-05-05 20:59] VITALS: BP 126/63
--- NOTE | 2017-05-05 23:51 | CP SOUTH PROGRESS NOTE PSYCH ---
Psych (Inpt) Progress Note Progress Note Progress Note: SUBJECTIVE: Pt states she was awoken by a disturbing dream at 5am this am, requriring prns for agitation. Pt feels that she is doing ok, denies SI/HI/AVH/ SIB. Reports "hot flashes" at night that she attributed to "perimenopause." Denies other physical complaints, s/e to meds other than daytime sedation today d/t 5am meds. Denies abnormal movements. OBJECTIVE: Per nursing, pt went to bed without shirt, needed redirection, woke at 5am agitated requiring prn ativan and zyprexa. Pt then concerned about what staff would write about her and if it would postpose dc. Otherwise adherent with meds and staff instructions, in behavioral control throughout rest of day. MEDS: Current Medications Sig/Yaneth Start time Last Medication Dose Stop Time Status Admin Lorazepam 0.5 MG 799,05/05 08 AC 05/05 (Ativan) 05/12 0759 2002 Acetaminophen 650 MG Q6-PRN PRN 05/04 0945 AC 05/05 (Tylenol) 2002 Carbamazepine 200 MG BID 05/02 220 AC 05/05 (Tegretol) 2147 Lamotrigine 50 MG 05/01 2200 AC 05/05 (LaMICtal) 214 Olanzapine 10 MG 0800,05/01 2200 AC 05/05 (Zyprexa) 214 Lorazepam 1 MG Q4H PRN 05/01 1230 AC 05/05 (Ativan) 0454 Nicotine 2 MG Q2H PRN 05/01 1230 AC (Nicotine) Olanzapine 2.5 MG Q4P PRN 04/30 1945 AC 05/05 (Zyprexa 2.5MG) 0454 Budesonide/ 2 PUF BID 04/27 2200 AC 05/04 Formoterol Fumarate 0919 (SYMBICORT) Nicotine 21 MG DAILY 04/27 1500 AC 05/05 (Nicoderm) 0948 Albuterol Sulfate 2 PUF Q4-6 PRN PRN 04/27 1245 AC 04/28 (Ventolin) 0541 Vital Signs Date Time Temp Pulse Resp B/P B/P Pulse O2 O2 Flow FiO2 Mean Ox Delivery Rate 05/05 2059 99.0 96 126/63 07/08 1619 96 138/70 05/05 1211 96 130/56 05/05 0809 97.6 95 157/84 LABS: Laboratory Tests 05/05 525 Chemistry Hemoglobin A1c (4.2 - 5.8 %) Pending Toxicology Carbamazepine (4.0 - 12.0 ug/mL) 8.8 MSE: GEN: Alert, oriented, impatient for MD to interview her today, but cooperative, clean clothes, NAD SPEECH: mildly fast rate, moderate volume, fluent MOTOR: no tics, tremor, stereotypy or abnormal movements MOOD: "Good" AFFECT: mildly intrusive, anxious/iritable, congruent, somewhat elevated range , mildly labile, fairly well-related TP: circumstantial but redirectable TC: denies SI/HI/AVH,SIB, no apparent delusions, paranoia, grandiosity, obsessions, ruminations COG: mild deficits in memory, attention, concentration d/t circumstantiality J/I: fair/fair A&P: 41 yo WF with Bipolar disorder with continued hypomania but per chart, appears somewhat improved today. Continues to require prns at times for agitation. -cont meds above -carbamazepine level 8.8, therapeutic, will hold dose -maintain safety, vs tid, q15 min checks -cont plan/dispo as per primary team
--- NOTE | 2017-05-06 06:05 | NUR ---
PT HYPOMANIC, HYPERVERBAL, DISORGANIZED. PT UP X 2, BUT SLEPT RELATIVELY WELL.
[2017-05-06 07:47] VITALS: BP 143/85
[2017-05-06 12:08] VITALS: BP 128/81
--- NOTE | 2017-05-06 12:42 | NUR ---
PT IS STABLE WITH FULL RANGE OF AFFECT. PT IS APPROPRIATE TO THE UNIT, VISIBLE WITHIN THE MILIEU AND INTERACTING WITH PEERS/STAFF. PT HAS BEEN ATTENDING GROUPS ALL AM. PT IS PLEASANT, CALM, COOPERATIVE, COMPLIANT. VS ARE STABLE AND DENIES ANY SI/HI TO THIS MHW.
[2017-05-06 15:19] VITALS: BP 131/80
--- NOTE | 2017-05-06 18:43 | NUR ---
PT HAS BEEN STABLE WITH A FULL RANGE AFFECT. ALL INTERACTIONS WITH STAFF AND PEERS HAVE BEEN APPROPRIATE, REQUIRING LITTLE TO NO REDIRECTION. PT HAS PROVIDED PEERS WITH GOOD FEEDBACK. PT DENIES ANY THOUGHTS OF SI AT THIS TIME.
[2017-05-06 20:31] VITALS: BP 140/93
--- NOTE | 2017-05-06 20:49 | CP SOUTH PROGRESS NOTE PSYCH ---
Psych (Inpt) Progress Note Progress Note Progress Note: SUBJECTIVE: Pt stated she took today as a little "rest and relaxation". Kay a box of drawing projects she was working on to the office. Feels "very good" today, eating ("love the food here") and sleeping (up at 5am) well. Denies SI/ HI/AVH/SIB, denies s/e to meds, abnormal movements. Feels like she is completed with ativan withdrawal and ready to stop tomorrow. Denies other physical complaints. OBJECTIVE: Per nursing, pt odd, hypomanic but slept well, up x2 o/n bit back to sleep. Pt adherent with meds and staff instructions, in behavioral control. Intrusive with card writer hand, sitting very close, asking personal questions, pressured. MEDS: Current Medications Sig/Yaneth Start time Last Medication Dose Stop Time Status Admin Acetaminophen 650 MG Q6-PRN PRN 05/04 0945 AC 05/05 (Tylenol) 2002 Albuterol Sulfate 2 PUF Q4-6 PRN PRN 04/27 1245 AC 04/28 (Ventolin) 0541 Budesonide/ 2 PUF BID 04/27 2200 AC 05/04 Formoterol Fumarate 0919 (SYMBICORT) Carbamazepine 200 MG BID 05/02 2200 AC 05/06 (Tegretol) 08 Lamotrigine 50 MG 05/01 2200 AC 05/05 (LaMICtal) 2148 Lorazepam 0.5 MG 799,05/05 0800 AC 05/06 (Ativan) 05/12 0759 2000 Lorazepam 1 MG Q4H PRN 05/01 1230 AC 05/05 (Ativan) 0454 Nicotine 2 MG Q2H PRN 05/01 1230 AC (Nicotine) Nicotine 21 MG DAILY 04/27 1500 AC 05/06 (Nicoderm) 0818 Olanzapine 10 MG 0800,05/01 2200 AC 05/06 (Zyprexa) 0818 Olanzapine 2.5 MG Q4P PRN 04/30 1945 AC 05/05 (Zyprexa 2.5MG) 0454 Vital Signs Date Time Temp Pulse Resp B/P B/P Pulse O2 O2 Flow FiO2 Mean Ox Delivery Rate 05/06 1519 104 131/80 05/06 1208 94 128/81 05/06 0747 97.0 78 143/85 05/05 2059 99.0 96 126/63 Laboratory Tests 05/05 0525 Chemistry Hemoglobin A1c (4.2 - 5.8 %) Pending Toxicology Carbamazepine (4.0 - 12.0 ug/mL) 8.8 MSE: GEN: Alert, oriented, cooperative, pleasant clean clothes, with a box of drawings, NAD SPEECH: mildly fast rate, moderate volume, fluent MOTOR: no tics, tremor, stereotypy or abnormal movements MOOD: "Very good today" AFFECT: mildly intrusive, congruent, mildly expansive, nonlabile TP: circumstantial but redirectable TC: denies SI/HI/AVH,SIB, no apparent delusions, paranoia, grandiosity, obsessions, ruminations COG: mild deficits in memory, attention, concentration d/t circumstantiality J/I: fair/fair A&P: 41 yo WF with Bipolar disorder with continued hypomania, slowly inproving. Feels withdrawal has cleared. Continues to require prns at times. -cont meds above -carbamazepine level 8.8, therapeutic, holding dose over weekend. -maintain safety, vs tid, q15 min checks -cont plan/dispo as per primary team
--- NOTE | 2017-05-06 23:30 | NUR ---
PT APPEARS TO BE AT BASELINE, YET SLIGHTLY MANIC. VERY TALKATIVE, VISIBLE AND INTERACTING WELL WITH PEERS. LOOKING FORWARDTO D/C TOMORROW.
--- NOTE | 2017-05-07 05:02 | NUR ---
SLEPT WELL, NO COMPLAINTS OFFERED.
[2017-05-07 08:16] VITALS: BP 131/86
--- NOTE | 2017-05-07 10:04 | CP SOUTH PROGRESS NOTE PSYCH ---
Psych (Inpt) Progress Note Progress Note Include the following elements, when applicable: Involvement in the active treatment of the patient with behavioral observations of the patient and the patient's response to the treatment. Review of the ongoing treatment process in the context of the treatment plan. Indication of how multi-disciplinary staff members are carrying out the treatment plan. Plans for future interventions and recommendations for revision of the treatment plan. Liaison with other physicians/providers. Progress Note: I discussed this patient's progress to date, current mental status, treatment process in the context of the treatment plan, and discharge planning with staff/ team in the daily morning inpatient team meeting. I also met with the patient myself in individual session. Current Medications Sig/Yaneth Start time Last Medication Dose Route Stop Time Status Admin Acetaminophen 650 MG Q6-PRN PRN 05/04 0945 AC 05/05 PO 2002 Albuterol Sulfate 2 PUF Q4-6 PRN PRN 04/27 1245 AC 04/28 INH 0541 Budesonide/ 2 PUF BID 04/27 2200 AC 05/04 Formoterol Fumarate INH 0919 Carbamazepine 200 MG BID 05/02 2200 AC 05/07 PO 0749 Lamotrigine 50 MG 05/01 2200 AC 05/06 PO 2124 Lorazepam 0.5 MG 0805/07 0800 DC 05/07 PO 05/07 0801 0749 Lorazepam 0.5 MG 799,05/05 0800 DC 05/06 PO 05/12 0759 2000 Lorazepam 1 MG Q4H PRN 05/01 1230 AC 05/05 PO 0454 Nicotine 2 MG Q2H PRN 05/01 1230 AC PO Nicotine 21 MG DAILY 04/27 1500 AC 05/07 TOP 0749 Olanzapine 10 MG 0800,05/01 2200 AC 05/07 PO 0749 Olanzapine 2.5 MG Q4P PRN 04/30 1945 AC 05/05 PO 0454 Vital Signs Date Time Temp Pulse Resp B/P B/P Pulse O2 O2 Flow FiO2 Mean Ox Delivery Rate 05/07 816 97.1 79 131/86 05/06 2031 99.3 93 140/93 05/06 1519 104 131/80 / 1208 94 128/81 A: Chart, progress notes, vital signs, labs and medication list reviewed. CBZ = 8.8. Vital signs within normal limits. Met with patient at 10:20AM. She presents alert and oriented to person, place, time and situations. Reports feeling "good." Affect full, bright, non-labile. Eye contact appropriate. Speech normal in rate, tone adnd volume. States she received visit from her oldest daughter over the weekend and phone calls from her mother. Reports she spoke to her employer who is willing to discuss the patient returning to work. She offers no complaints. Reports anxiety a 3/10 (10 being the worst). Reports sadness/depression a 0/10 (10 being the worst). Denies passive and active suicidal ideation, plans and intent. Denies homicidal ideation. Identifies protective factors including her 3 children and mother. She states and also believes she will not harm herself or others. Denies auditory and visual hallucinations. Denies paranoid ideation. There is no evidence of delusional or illogical thought content. Thought process linear, goal-directed. Reports sleeping well. Describes appetite as "so good." Reports her energy level is "back to normal." Patient reports tolerating medications well and denies SEs. Patient reports feeling safe and ready for discharge. P: -discharge to home into the care of mother. -f/u with Bal Riddle APRN, at [facility]PS for medication evaluation on 05/16/17 at 7PM. -INFECTION PREVENTIONIST to contact patient tomorrow with [facility] f/u appointments. Patient's contact information received. -all discharge prescriptions were e-prescribed to [facility] in [place], [place], today. -patient was strongly advised to abstain from all substances. -patient was advised that in the event of an emergency, to call [phone] to the nearest emergency department.
--- NOTE | 2017-05-07 10:51 | Patient Discharge Instructions ---
Psych Discharge Inst General Discharge Information Reason for Admission: Suicidal ideation Britt Thought disturbance Psy Discharge Primary Diag+ Bipolar disorder, MRE mixed, severe, with psychotic features Psy Discharge Secondary Diag+ Cannabis use disorder Summary Tests/Major Procedures N/A Studies Pending at DC: N/A Patient Instructions Contact Information Your Psychiatrist on [facility] was BEBA PUGH MD/ NICA BURNS APRN * If you are experiencing an emergency related to this hospitalization, please call [phone] to contact the treating psychiatrist or the psychiatrist-on- call. * To Request a copy of your medical records, please contact the Medical Records Department at [phone]. * To request results of studies pending at the time of discharge, please call [phone]. * Continue your Medications until directed to stop by your Healthcare provider. General Medication Information Please continue to take your new medications and your continued home medications , unless otherwise indicated on your discharge medication list, or unless directed by your or DEHYDROGENATION OPERATOR to stop them. Special Instructions: DIET: Regular. ACTIVITY LEVEL: No restrictions. Advance Directives Does the Patient have Medical Advance Directives No/Refused further info Does Pt have Psychiatric Advance Directives? No/Refused further info Does Patient have a Designated Surrogate Decision Maker: No Information About Psychiatric Advance Directives Provided? Refused Discharge Plan Post Hospital Treatment Plan: Continue medications as prescribed. Follow up with medication evaluation with Bal Riddle APRN, at [facility] Outpatient Psychiatry on Sunday, 05/16 at 7PM. You will be contacted by [facility] clinician regarding your Care follow up appointments. In the event of an emergency, call [phone] to the nearest emergency department.
--- NOTE | 2017-05-07 10:51 | DISCHARGE SUMMARY REPORT-PSYCH ---
Visit Information Visit Dates/Diagnosis' Admission Date: 04/27/17 Discharge Date: 05/07/17 Reason for Admission: The patient presented to [facility] Emergency Department on 04/27/17 by ambulance on a PEER in the context of medication non-adherence and after reporting SI to her manager of application development at [facility]. In the emergency department she was noted being manic, highly labile, religiously preoccupied and delusional. Psy Discharge Primary Diag: Bipolar disorder, MRE mixed, severe, with psychotic features Psy Discharge Secondary Diag: Cannabis use disorder Hospital Course Significant Lab Findings: Lab Glucose 103 mg/dL H 04/26/17 1830 Absolute Granulocytes 7.5 /CUMM H 04/26/17 1830 Absolute Lymphocytes 4.4 /CUMM H 04/26/17 1830 Absolute Monocytes 0.8 /CUMM H 04/26/17 1830 MCH 31.3 PG H 04/26/17 1830 WBC 13.1 /CUMM H 04/26/17 183 Barbiturate Screen > 800 NG/ML H 04/26/171932 Carbamazepine 8.8 ug/mL 05/05/17 0525 Urine Cannabis Screen 79.90 NG/ML H 04/26/171932 Urine Test NEGATIVE 04/26/17193205/02/17 EKG: Sinus rhythm with a rate of 84. No significant change. [place]: 140. QRSD: 82. QT: 400. QTc: 473. P: 49. QRS: 21. T: 13. Normal EKG confirmed by mortgage loan assistant, Victor Hugo Black M.D. Course Complications: None. Consultations: The patient was seen for admission history and physical by absorption plant operator helper, Dr. Miranda Mir. Please see MD note for additional information. Allergies: Coded Allergies: haloperidol (From HALDOL) ("seizure like coma sleep" 04/26/17) Uncoded Allergies: DOG SHAMPOO (HIVES AND ITCHING ALL OVER 03/31/15) Hospital Course/TX Response: The patient was monitored on the unit for safety, mood and psychosis. She participated in multimodal treatments on the unit. Lamictal 50mg was continued for mood stabilization. Seroquel 50mg every 2 hours as needed was initially started for mood stabilization/psychosis, as the patient would not agree to any other medications or scheduling. The patient verbally and behaviorally escalated once during the hospital course requiring locking restraints and emergency IM medications for safety and stabilization. Following this agitated episode, as need Seroquel was changed to scheduled Zyprexa 5mg BID for mood stabilization/ psychosis and Zyprexa 5mg Q4H prn for agitation. Patient was started on a short trial of Ativan po; initially 2mg TID for agitation which was gradually tapered down to off with improved behavioral control. Zyprexa was increased to 10mg BID for mood stabilization/psychosis. Tegretol 200mg daily was started for mood stabilization and increased to BID. Tegretol level prior to discharge was therapeutic, at 8.8ug/mL. The patient reported tolerating medications well and denied untoward effects. She was agreeable to continue taking them. During the hospital course, the patient's mood and affect improved. Her thought process cleared. She consistently denied suicidal and homicidal ideation. Discharge HBIPS - Tobacco Use Treatment Offered - EtOH/Drug Use D/O Treatment Offered Metabolic Screening - Screen if on a Neuroleptic Medication - Metabolic screening should include: - Blood Pressure, BMI, Glucose or Hgb A1c, & a - Lipid profile from within the past 365 days.
[2017-05-07 12:25] VITALS: BP 131/77
--- NOTE | 2017-05-07 13:51 | NUR ---
PT IS COMPLIANT AND COOPERATIVE. MOOD IS STABLE WITH A FULL RANGE OF AFFECT. PT DENES SI AT THIS TIME, NO COMPLAINTS OFFERED. PT CAN BE A BIT HYPERVERBAL AT TIMES BUT HAS MAINTAINED ORGANIZATION AND BEHAVIORAL CONTROL. PT IS PRESENT ON TH UNIT AND INTERACTING WITH PEERS AND STAFF. PT IS ATTENDING MOST GROUPS. VITALS ARE STABLE, APPETITE IS GOOD.
[2017-05-07 15:39] VITALS: BP 144/75
--- NOTE | 2017-05-07 17:02 | SOCIAL WORKER PROG NOTE PSYCH ---
See Addendum Social Work Progress Note Progress Note This financial writer met with pt regarding discharge from [facility] with a plan to return to [facility]. Pt is unable to attend IOP due to a schedule conflict and wanted to return to individual therapy with Shoshana Gamble Psy.D. at [facility]. This financial writer was unable to schedule an appointment with him and was offered an appointment with Brianda Riddle APRN at [facility] for 05/16/17 at 7pm. As discussed with Shoshana Jalloh APRN and pt, a vm has been left for Cristy at [facility]. Pt will be contacted tomorrow by phone to inform of the appt with [facility] once it has been scheduled. Pt was in agreement with this plan and will discharge from [facility].
[2017-05-07] MEDS ORDERED: SYMBICORT 80-10.2 GM INH (17:14)
[2017-05-07] MEDS ORDERED: LAMICTAL25 M1 PO (17:14)
[2017-05-07] MEDS ORDERED: NICOTINE PATCH1 EAC3 TOP (17:14)
[2017-05-07] MEDS ORDERED: OLANZAPINE10 M1 PO (17:14)
[2017-05-07] MEDS ORDERED: TEGRETOL200 M1 PO (17:14)
--- NOTE | 2017-05-07 17:35 | NUR ---
WILL BE DISCHARGED TODAY TO [facility] [place] [place] WITH FOLLOW UP T CARE AND OP FOR MEDS. MOOD IS STABLE, FULL RANGE OF AFFECT DENIED THOUGHTS OF SELF HARM WHEN ASKED. GIVEN EDUCATION ON SUICIDE PREVENTION, BIPOLAR
== END 2017-05-07 18:17 | DRG 753 ==
LOC: ERH 17:52 → ERHI 04-27 09:52 → CP SOUTH 04-27 09:52 → ENRESERV 04-27 11:00 → CP SOUTH 04-27 11:39
PROVIDERS: Physician Assistant Medical; ADMIT Psychiatry & Neurology Psychiatry
DX: F31.64 Bipolar disorder, current episode mixed, severe, with psychotic features (principal); F12.90 Cannabis use, unspecified, uncomplicated
CPT/HCPCS: 36415; 80307; 81001; 81025; 93005; 93010; G0463; G0480; J0456; J1200; J1630; J2550; J3490

== ENCOUNTER 2017-10-27 15:20 | Emergency (ER) | payer OTHER, MEDICARE ==
[~2017-10-27] VITALS: Ht 167.6 cm; Wt 77.1 kg
[~2017-10-27 15:20] MED LIST changes: +CARBAMAZEPINE200 M3 PO; +CARBAMIDE15 ML OTIC; +CYMBALTA60 M1 PO; +LAMICTAL100 M2 PO; +LAMOTRIGINE100 M2 PO; +LAMOTRIGINE25 M3 PO; +MIRTAZAPINE15 M2 PO; +NICOTINE PATCH1 EAC2 TOP; +NICOTINE PATCH1 EAC3 TOP; +OLANZAPINE10 M1 PO; +QUETIAPINE FUM200 M1 PO; +SEROQUEL100 M1 PO; +SEROQUEL200 M1 PO; +SEROQUEL25 M1 PO; +SYMBICORT 80-10.2 GM INH; +TEGRETOL XR200 M1 PO; +TEGRETOL200 M1 PO
--- NOTE | 2017-10-27 15:46 | ED PSYCHIATRIC COMPLAINT ---
History of Present Illness General Chief Complaint: Psychiatric Related Complaint Stated Complaint: BIBA FOR PSYCH EVAL Source: patient, old records Exam Limitations: no limitations Allergies Coded Allergies: haloperidol (From HALDOL) ("seizure like coma sleep" 04/26/17) Uncoded Allergies: DOG SHAMPOO (HIVES AND ITCHING ALL OVER 03/31/15) Reconcile Medications Carbamazepine 200 MG TABLET 200 MG PO BID mood stabilizer Carbamide Peroxide (Carbamide) 6.5 % DROPS 5 GTT OTIC TID ear wax To left ear x 6 more doses Lamotrigine (Lamictal) 25 MG TABLET 1 TAB PO DAILY mood stabilization Lamotrigine (Lamictal) 100 MG TABLET 1 TAB PO DAILY mood stabilization Nicotine (Nicotine Patch) 14 MG/24 HOUR PATCH.TD24 14 MG TOP DAILY smoking cessation Quetiapine Fumarate (Seroquel) 200 MG TABLET 1 TAB PO AT BEDTIME to clear thoughts Triage Note: PT BIBA ON A PEER. PER PEER, "[facility] REQUESTED WELFARE CHECK OF DAVID WHO CALLED THEM STATING SHE IS CHANNELING THE ". DENIES SI/HI. SECURITY AT BEDSIDE. SITTER SETTLING PT. Triage Nurses Notes Reviewed? yes : No Patient currently breastfeeds: No HPI: Patient called Inpatient Psychiatry in a manic state. Patient states that she was generally nurses and seeing ghosts. Patient states that she has been compliant with her medications. Patient denies any suicidal or homicidal ideations. Patient was brought in on a police paper. ([place] MANZO,Joe Anna) Vital Signs & Intake/Output Vital Signs & Intake/Output Vital Signs Date Time Temp Pulse Resp B/P B/P Pulse O2 O2 Flow FiO2 Mean Ox Delivery Rate 10/28 0904 98.4 94 20 122/55 100 Room Air 10/28 0640 99.2 88 16 121/73 98 Room Air 10/28 0310 97.6 80 20 110/78 97 10/28 0033 97.8 122 22 100/60 98 10/27 2230 96.0 92 16 151/62 96 Room Air 10/27 2103 98.4 101 18 129/75 96 Room Air 10/27 1900 99.0 118 20 130/80 95 Room Air 10/27 1704 98.9 102 18 120/80 92 Room Air 10/27 1536 97.1 133 18 149/82 96 Room Air ED Intake and Output 10/28 0000 10/27 1200 Intake Total 0 Output Total Balance 0 Intake, Oral 0 Patient 170 lb Weight (Morro MANZO,Andres Sheth) Past History Travel History Traveled to [place] past 21 day No Medical History Any Pertinent Medical History? see below for history Neurological: migraine, AVM EENT: NONE Cardiovascular: NONE Respiratory: NONE Gastrointestinal: HYPOGLYCEMIA Hepatic: NONE Renal: NONE Musculoskeletal: NONE Psychiatric: anxiety, bipolar disease, depression, substance abuse Endocrine: Hypoglycemia Blood Disorders: NONE Cancer(s): NONE ALUMNI SECRETARY/Reproductive: NONE History of MRSA: No History of VRE: No History of CDIFF: No Tetanus Vaccine: 07/23/16 Surgical History Surgical History: none, N Psychosocial History Who do you live with Mother Services at Home None What is your primary language Nigerien Tobacco Use: Current Daily Use Daily Tobacco Use Amount/Type: =< 4 Cigarettes daily ETOH Use: denies use Illicit Drug Use: PAST USE Family History Family History, If Any: FATHER (Father CAD- 1st diagnosed in 40s; Mother and Sister alive & well; GM with DM). . Hx Contributory? No (Albina MANZO,Joe Anna) Review of Systems Review of Systems Constitutional: Reports: no symptoms. EENTM: Reports: no symptoms. Respiratory: Reports: no symptoms. Cardiovascular: Reports: no symptoms. GI: Reports: no symptoms. Genitourinary: Reports: no symptoms. Musculoskeletal: Reports: no symptoms. Skin: Reports: no symptoms. Neurological/Psychological: Reports: see HPI. Hematologic/Endocrine: Reports: no symptoms. Immunologic/Allergic: Reports: no symptoms. All Other Systems: Reviewed and Negative (Albina MANZO,Joe Anna) Physical Exam Physical Exam General Appearance: well developed/nourished, alert, awake, mild distress Head: atraumatic Eyes: Bilateral: PERRL, EOMI. Ears, Nose, Throat: normal pharynx, normal ENT inspection, hearing grossly normal Neck: normal inspection, supple Respiratory: normal breath sounds, chest non-tender, no respiratory distress, lungs clear Cardiovascular: regular rate/rhythm, normal peripheral pulses Gastrointestinal: normal bowel sounds, soft, non-tender Extremities: normal range of motion Neurological/Psychiatric: no motor/sensory deficits, awake, alert, calm, oriented x 3 Appearance/Memory/Insight: appropriate appearance, appropriate insight Behavoir/Eye Contact/Speech: cooperative, normal speech, good eye contact Thoughts/Hallucinations: SEE HPI Skin: intact, normal color, warm/dry SAD PERSONS Done? CRISIS CONSULT OBTAINED (Albina MANZO,Joe Anna) Progress Differential Diagnosis: drug intoxication, drug overdose, drug withdrawal, electrolyte abnormality Hand-Off Endorsed To: Andres Hooker MD Endorsed Time: 1899 Pending: consult (CRISIS) Comments: Patient has been seen and reevaluated by the fine arts instructor. Patient is stable for discharge. (Albina MANZO,Joe Anna) Plan of Care: Orders Procedure Date/time Status Continuous Observation Monitor 10/28 0821 Active Regular Diet 10/27 D Active Continuous Observation Monitor 10/27 1526 Active URINE DRUGS OF ABUSE 10/27 1526 Complete URINALYSIS 10/27 1526 Complete ETHANOL 10/27 1526 Complete COMPREHENSIVE METABOLIC PANEL 10/27 152 Complete CBC WITHOUT DIFFERENTIAL 10/27 1526 Complete CARBAMAZEPINE 10/27 1526 Complete ED CRISIS PSYCH CONSULT 10/27 1526 Active Current Medications Sig/Yaneth Start time Last Medication Dose Stop Time Status Admin Lamotrigine 25 MG DAILY 10/28 1000 UNVr (LaMICtal) Lamotrigine 100 MG DAILY 10/28 1000 UNVr (LaMICtal) Trazodone HCl 50 MG QPM 10/28 0030 UNVr 10/28 (Desyrel) 0027 Carbamazepine 200 MG BID 10/27 2200 CANr (Tegretol) Carbamazepine 300 MG BID 10/27 2200 UNVr 10/27 (Tegretol) 210 Quetiapine Fumarate 200 MG QPM 10/27 2200 UNVr 10/27 (Seroquel) 2101 Ibuprofen 600 MG 4 TIMES/DAY PRN 10/27 2045 UNVr 10/27 (Motrin) 2041 Laboratory Tests 10/27/17 1615: Anion Gap 10, Estimated GFR > 60, BUN/Creatinine Ratio 18.8, Glucose 111 H, Calcium 10.2, Total Bilirubin 0.4, AST 21, ALT 33, Alkaline Phosphatase 67, Total Protein 7.6, Albumin 4.4, Globulin 3.2, Albumin/Globulin Ratio 1.4, CBC w Diff NO MAN DIFF REQ, RBC 4.24, MCV 95.3, MCH 32.4 H, RDW 13.4, MPV 7.8, Gran % 66.0, Lymphocytes % 26.2, Monocytes % 6.2, Eosinophils % 1.1, Basophils % 0.5, Absolute Granulocytes 6.9 H, Absolute Lymphocytes 2.7, Absolute Monocytes 0.6, Absolute Eosinophils 0.1, Absolute Basophils 0.1, PUBS MCHC 34.0, Carbamazepine 6.1, Serum Alcohol < 10.0 10/27/17 1544: Urine Opiates Screen < 100.00, Methadone Screen < 40, Barbiturate Screen < 60, Ur Phencyclidine Scrn < 6.00, Amphetamines Screen 303, U Benzodiazepines Scrn < 85, Urine Cocaine Screen < 50, Urine Cannabis Screen 73.10 H, Urine Color YEL, Urine Clarity CLDY H, Urine pH 6.0, Ur Specific Wood >= 1.030, Urine Protein NEG, Urine Ketones 15 H, Urine Nitrite NEG, Urine Bilirubin NEG, Urine Urobilinogen 0.2, Ur Leukocyte Esterase MOD H, Ur Microscopic SEDIMENT EXAMINED , Urine RBC 15-25 H, Urine WBC 3-5 H, Ur Epithelial Cells MANY H, Urine Mucus FEW, Urine Hemoglobin LARGE H, Urine Glucose NEG Hand-Off Endorsed To: Joe Montemayor MD Endorsed Time: 0700 Pending: consult (Morro MANZO,Andres Sheth) Departure Departure Disposition: HOME OR SELF CARE Condition: Stable Clinical Impression Primary Impression: Bipolar 1 disorder Referrals: Josefa MANZO,Max Hernandez (PCP/Family) Additional Instructions: FOLLOW UP PER RECOMMENDATIONS OF THE FLOATLIGHT POWDER MIXER RETURN FOR ANY CONCERNS INCREASE YOUR TEGRETOL TO 300MG TWICE A DAY Departure Forms: Customer Survey General Discharge Information Prescriptions: Current Visit Scripts Carbamazepine (Tegretol) 1.5 TAB PO BID #21 TAB (Joe Montemayor MD)
[2017-10-27 16:29] LABS: ABSOLUTE BASOPHIL COUNT 0.1 /CUMM (0.0-0.2); ABSOLUTE EOSINOPHIL COUNT 0.1 /CUMM (0.0-0.7); ABSOLUTE GRANULOCYTE CT 6.9 /CUMM (1.4-6.5); ABSOLUTE LYMPH COUNT 2.7 /CUMM (1.2-3.4); ABSOLUTE MONOCYTE COUNT 0.6 /CUMM (0.10-0.60); BASOPHIL % 0.5 % (0.0-2.0); EOSINOPHIL % 1.1 % (0-5); HEMATOCRIT 40.4 % (37-47); MEAN CORPUSCULAR HGB 32.4 PG (27.0-31.0); MEAN CORPUSCULAR VOLUME 95.3 FL (81.0-99.0); MEAN PLATELET VOLUME 7.8 FL (7.4-10.4); PLATELET COUNT 310 /CUMM (130-400); RBC DISTRIBUTION WIDTH 13.4 % (11.5-14.5); RED BLOOD CELL CT 4.24 /CUMM (4.20-5.40); WHITE BLOOD CELL COUNT 10.4 /CUMM (4.8-10.8)
--- NOTE | 2017-10-27 18:48 | ED PSYCH CRISIS CONSULTATION ---
Crisis Consult Basic Assessment Date of Consult: 10/27/17 Responsible Person/Accompanied By: BIBA/PEER Insurance Authorization: Insurance #1: Insurance name: MEDICARE A Phone number: Policy number: [id number] Group number: Authorization number: ED Provider: Patient's ED Provider: Albina MANZO,Joe Anna Primary Care Physician: Patient's PCP: Josefa MANZO,Max Hernandez PCP's Current Psychiatrist: [facility] Chief Complaint: Psychiatric Related Complaint Patient's Quote: " a lot has happened" Present Illness: Pt is a 42 year old female, just recently discharged from [facility] on 10/24/17. Pt was brought in on a PEER due to increase in manic symptoms, and speaking about paranormal/psychic activity. APparently she called CPS for support and spoke to an RN, after a long period of time the RN involved crisis who in turn called mobile crisis, apparently they felt it required police intervention, therefore pt was brought biba, and on a PEER. She states "last night at 2:22am her Father's shampoo and railing in the shower fell off", she woke up from the noise and was alarmed, today is her parents anniversary, and felt this was her "Father's way of coming to wish her a happy anniversary". She is eager to start the job at a local [employer] station tomorrow night. She has smoked cannabis since her discharge, tox screen is positive for cannabis. Denies other drug use, pt states she went to a NA meeting last night. Pt reports missing her 2 evening doses of Tegretol since discharge, but otherwise reports med compliance. She denies si/hi/ah/vh. She mentions her "twin flame, anex boyfriend Jesus, who discussed a friend that may have overdosed, which the pt was upset, over and later in the day found out it was not true". She is calm, is tired, soft spoken and not exhbiting current manic state. She does not want to be admitted to the hospital, she states I need rest tonight and want to go to my job tomorrow. Patient's Address: [address] [place] [address] Other Who Do You Live With? Mother Family/Informants Interviewed: Wendy, reports her daughter is obnoxious, and always makes small thing sbig things, she is being evicted 11/09/17 from her home and feels like the anxiety may be getting to her, she does not think she is at risk of self harm Allergies - Coded Allergies: haloperidol (From HALDOL) ("seizure like coma sleep" 04/26/17) Uncoded Allergies: DOG SHAMPOO (HIVES AND ITCHING ALL OVER 03/31/15) Laboratory Results: Laboratory Tests 10/27/17 1615: Anion Gap 10, Estimated GFR > 60, BUN/Creatinine Ratio 18.8, Glucose 111 H, Calcium 10.2, Total Bilirubin 0.4, AST 21, ALT 33, Alkaline Phosphatase 67, Total Protein 7.6, Albumin 4.4, Globulin 3.2, Albumin/Globulin Ratio 1.4, CBC w Diff NO MAN DIFF REQ, RBC 4.24, MCV 95.3, MCH 32.4 H, RDW 13.4, MPV 7.8, Gran % 66.0, Lymphocytes % 26.2, Monocytes % 6.2, Eosinophils % 1.1, Basophils % 0.5, Absolute Granulocytes 6.9 H, Absolute Lymphocytes 2.7, Absolute Monocytes 0.6, Absolute Eosinophils 0.1, Absolute Basophils 0.1, PUBS MCHC 34.0, Carbamazepine 6.1, Serum Alcohol < 10.0 10/27/17 1544: Urine Opiates Screen < 100.00, Methadone Screen < 40, Barbiturate Screen < 60, Ur Phencyclidine Scrn < 6.00, Amphetamines Screen 303, U Benzodiazepines Scrn < 85, Urine Cocaine Screen < 50, Urine Cannabis Screen 73.10 H, Urine Color YEL, Urine Clarity CLDY H, Urine pH 6.0, Ur Specific Palmer >= 1.030, Urine Protein NEG, Urine Ketones 15 H, Urine Nitrite NEG, Urine Bilirubin NEG, Urine Urobilinogen 0.2, Ur Leukocyte Esterase MOD H, Ur Microscopic SEDIMENT EXAMINED , Urine RBC 15-25 H, Urine WBC 3-5 H, Ur Epithelial Cells MANY H, Urine Mucus FEW, Urine Hemoglobin LARGE H, Urine Glucose NEG (Dyan Brady LCSW) Current Medications - Scheduled Medications Carbamazepine (Tegretol) 200 MG TABLET 1.5 TAB PO BID BIPOLAR #21 TAB Prescribed by Joe Montemayor MD on 10/28/17 Carbamazepine 200 MG TABLET 200 MG PO BID mood stabilizer #28 TAB Prescribed by Andres Cortés MD on 10/24/17 Carbamide Peroxide (Carbamide) 6.5 % DROPS 5 GTT OTIC TID ear wax #1 BOT Prescribed by Andres Cortés MD on 10/24/17 Lamotrigine (Lamictal) 25 MG TABLET 1 TAB PO DAILY mood stabilization #14 TAB Prescribed by Andres Cortés MD on 10/24/17 Lamotrigine (Lamictal) 100 MG TABLET 1 TAB PO DAILY mood stabilization #14 TAB Prescribed by Andres Cortés MD on 10/24/17 Nicotine (Nicotine Patch) 14 MG/24 HOUR PATCH.TD24 14 MG TOP DAILY smoking cessation #14 PAT Prescribed by Andres Cortés MD on 10/24/17 Quetiapine Fumarate (Seroquel) 200 MG TABLET 1 TAB PO AT BEDTIME to clear thoughts #14 TAB Prescribed by Andres Cortés MD on 10/24/17 Discontinued Medications Carbamazepine (Tegretol XR) 200 MG TAB.ER.12H 1 TAB PO BID MENTAL HEALTH #60 (Reported) Discontinued reason: Changed to different med Quetiapine Fumarate (Seroquel) 100 MG TABLET 5 TAB PO QPM MENTAL HEALTH #150 (Reported) Discontinued reason: Changed Dose (Tatyana Olivier LCSW) Past History Past Medical History Neurological: migraine, AVM EENT: NONE Cardiovascular: NONE Respiratory: NONE Gastrointestinal: HYPOGLYCEMIA Hepatic: NONE Renal: NONE Musculoskeletal: NONE Psychiatric: anxiety, bipolar disease, depression, substance abuse Endocrine: Hypoglycemia Blood Disorders: NONE Cancer(s): NONE 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 She does appear to have some insight into her symptoms. She really wants to work. Physical Limitations (Interventions): None identified. Psychiatric Treatment History Psych Treatment Psychiatric Treatment Yes Inpatient Treatment Yes Outpatient Treatment Yes Location of Treatment [facility], and CARE Reason for Treatment Bipolar/ polysubstance Dates of Treatment last discharged 10/24/17 currently involved with CARE Response to Treatment fair Diagnosis by History: Bipolar D/O Substance Use/Abuse History Drug Use/Abuse Substances Used/Abused Yes Substance Used/Abused Marijuana First Use 11 Last Used today How much used/taken varies How often varies/ is trying to stop For how long years Route of use inhale Substance Abuse Treatment Substance Abuse Treatment Past Substance Abuse TX Yes Inpatient Treatment Yes Outpatient Treatment Yes Location of Treatment [facility]/ [facility]/ Meetings Reason for Treatment cocaine, etoh Dates of Treatment 2017 Response to Treatment fair Comments: Pt has a hx of cocaine and etoh use, but is not in her tox screen this visit. She is going to currently per her report (Dyan Brady LCSW) Current Mental Status Mental Status Orientation: Person, Place, Situation Affect: Inappropriate, Lonely, Labile, Manic Speech: WNL Neuro-vegetative: Concentration Poor, Energy Increased, Loss of Interest, Sleep Disturbance Appearance Appearance- Dress/Hygiene: WNL/appropriate Behaviors Thought Process: Flight of Ideas, Tangential Thought Content: WNL, preoccupation with paranormal Memory: WNL Insight: Fair SI/HI Risk Assessment Past Suicidal Ideation/Attempts Yes Current Suicidal Ideation/Att No Past Homicidal Ideation/Att: No Current Homicidal Ideation/Attempts No Degree of Intent: None Risk Factors: high anxiety/distress, poor impulse control, limited support Lethality Ratin (mild) PTSD Checklist PTSD Done? patient declined ED Management Sitter: Yes Restraints: No (Dyan Brady LCSW) DSM5/PS Stressors/Medical Prob Diagnosis' (DSM 5, Stressors, Medical): Unspecifed Bipolar F31.9 Cannabis Use D/O F F12.20 hx of cocaine and etoh use d/o family discord, housing, financial Current GAF: 32 (Dyan Brady LCSW) Departure Disposition Psych Medical Clearance Date: 10/27/17 Medically Cleared at: 1830 Time Started: 1829 Time Ended: 1931 Psychiatrist Consulted: Andres Cortés MD Date Disposition Established: 10/27/17 Time Disposition Established: 1931 Plan for Disposition - Modality: PEER/ HOLD OVER/ RE EVAL Facility: [facility] Follow-up Appt Date: 10/30/17 Contact: [facility] if discharged Telephone: [phone] Rationale for Disposition: Consulted with Dr. Cortés, pt to be held over/PEER she does not meet criteria for PEC/ and does not want to be admitted. She reports she wants to go to her new job tomorrow, and follow up with [facility]. Dr. Cortés adjusted Tegretol from 200 to 300mg while in ER, considering her level was low. Referrals Josefa MANZO,Max Hernandez (PCP/Family) (Caitlyn TURCIOS,Dyan) Disposition Psych Medical Clearance Date: 10/28/17 Medically Cleared at: 08 Time Started: 829 Time Ended: 909 Psychiatrist Consulted: Anrdes Cortés MD Date Disposition Established: 10/28/17 Time Disposition Established: 909 Plan for Disposition - Modality: Outpatient Facility: [facility] Rationale for Disposition: Pt denies SI, HI, SH, and Psychosis and is forward thinking as she is eager to start her new job today. (Soy TURCIOS,Tatyana) Addendum Addendum Crisis re-evaluated pt this morning. She is calm and rational. She denies SI, HI , SH or psychosis. She expresses her eagerness to start her new job today. Crisis called and spoke to her Mom who is agreeable to picking her up so she can go work. Case reviewed with Dr. Cortés of Psychiatry and he approved Discharge and recommends 300mg of Tegretol 2x daily. Dr. Montemayor agreed to write a script for 1 weeks worth. (Tatyana Olivier LCSW)
[2017-10-28 09:04] VITALS: BP 122/55
[2017-10-28] MEDS ORDERED: TEGRETOL200 M1 PO (09:27)
== END 2017-10-28 09:35 ==
LOC: ERH 15:20
PROVIDERS: Emergency Medicine
DX: F31.9 Bipolar disorder, unspecified (principal)
CPT/HCPCS: 80307; 81001; G0463; G0480

== ENCOUNTER 2017-11-07 20:37 | Inpatient (IN) | payer OTHER, MEDICARE ==
[~2017-11-07] VITALS: Ht 165.1 cm; Wt 91.6 kg
--- NOTE | 2017-11-07 21:41 | ED PSYCHIATRIC COMPLAINT ---
See Addendum History of Present Illness General Chief Complaint: Psychiatric Related Complaint Stated Complaint: BIBA +SI Source: patient, old records, EMS, police Exam Limitations: no limitations Vital Signs & Intake/Output Vital Signs & Intake/Output Vital Signs Date Time Temp Pulse Resp B/P B/P Pulse O2 O2 Flow FiO2 Mean Ox Delivery Rate 11/08 0656 97.0 93 18 122/82 98 Room Air 11/07 2215 98.0 102 19 132/88 97 Room Air 11/07 2135 96 Room Air 11/079 98.4 107 18 128/90 96 Room Air ED Intake and Output 11/08 0000 11/07 1200 Intake Total 120 Output Total Balance 120 Intake, Oral 120 Patient 202 lb Weight Weight Estimated Measurement Method Allergies Coded Allergies: haloperidol (From HALDOL) ("seizure like coma sleep" 11/07/17) Uncoded Allergies: DOG SHAMPOO (HIVES AND ITCHING ALL OVER 03/31/15) Reconcile Medications Carbamazepine (Tegretol) 200 MG TABLET 1.5 TAB PO BID BIPOLAR Carbamazepine 200 MG TABLET 200 MG PO BID mood stabilizer Carbamide Peroxide (Carbamide) 6.5 % DROPS 5 GTT OTIC TID ear wax To left ear x 6 more doses Lamotrigine (Lamictal) 25 MG TABLET 1 TAB PO DAILY mood stabilization Lamotrigine (Lamictal) 100 MG TABLET 1 TAB PO DAILY mood stabilization Nicotine (Nicotine Patch) 14 MG/24 HOUR PATCH.TD24 14 MG TOP DAILY smoking cessation Quetiapine Fumarate (Seroquel) 200 MG TABLET 1 TAB PO AT BEDTIME to clear thoughts Triage Note: PT BIBA FROM HOME AFTER CALLING THE PD. 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 PT IS HARD TO FOCUS. PT HAS A HX POF BIPOLAR. DENIES PHYSCICAL COMPLAINTS. DENIES SI/HI Triage Nurses Notes Reviewed? yes Onset: Just prior to arrival Duration: constant, continues in ED Timing: recent history Severity: moderate, severe Associated Symptoms: anxiety, insomnia, suicidal ideation LMP (ages 10-50): unknown : No Patient currently breastfeeds: No HPI: Prior to admission patient reports calling the police to help them solve a missing [place] child case using her REUBEN and acquaintances at her place of employment. She is fearful that the fili and [place]ian gangs may be after her. She denies fever chills nausea vomiting diarrhea abdominal pain chest pain shortness breath headache dysuria rash bleeding suicidal ideation homicidal ideation. (Agustín Mckenna MD) Past History Travel History Traveled to [place] past 21 day No Medical History Any Pertinent Medical History? 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 . Hx Contributory? No (Agustín Mckenna MD) Review of Systems Review of Systems Constitutional: Reports: no symptoms. EENTM: Reports: no symptoms. Respiratory: Reports: no symptoms. Cardiovascular: Reports: no symptoms. GI: Reports: no symptoms. Genitourinary: Reports: no symptoms. Musculoskeletal: Reports: no symptoms. Skin: Reports: no symptoms. Neurological/Psychological: Reports: see HPI, confusion, emotional problems. Hematologic/Endocrine: Reports: no symptoms. Immunologic/Allergic: Reports: no symptoms. All Other Systems: Reviewed and Negative (Agustín Mckenna MD) Physical Exam Physical Exam General Appearance: well developed/nourished, alert, awake, anxious, severe distress, obese Head: atraumatic, normal appearance Eyes: Bilateral: normal appearance, PERRL, EOMI. Ears, Nose, Throat: normal pharynx, normal ENT inspection, hearing grossly normal Neck: normal inspection, supple, full range of motion, no midline tenderness Respiratory: normal breath sounds, chest non-tender, no respiratory distress, quiet respiration, lungs clear Cardiovascular: regular rate/rhythm, normal peripheral pulses, norml femoral pulses equa Gastrointestinal: normal bowel sounds, soft, non-tender, no organomegaly Extremities: normal range of motion, no ligament instability Neurological/Psychiatric: no motor/sensory deficits, awake, agitated, alert, anxious, nurse first assist II-XII nml as tested, oriented x 3 Appearance/Memory/Insight: disheveled, impaired insight Behavoir/Eye Contact/Speech: cooperative, increased rate of speech Thoughts/Hallucinations: flight of ideas, hinduism Skin: intact, normal color, warm/dry SAD PERSONS Done? patient not suicidal (Bala MANZO,Agustín) Progress Differential Diagnosis: drug intoxication, drug overdose, drug withdrawal, electrolyte abnormality, hypoglycemia Plan of Care: Orders Procedure Date/time Status Regular Diet 11/08 B Active Continuous Observation Monitor 11/08 0440 Active Continuous Observation Monitor 11/08 0040 Active Add-on Test (ER Only) 11/07 2106 Active ED CRISIS PSYCH CONSULT 11/07 2106 Active Continuous Observation Monitor 11/07 2042 Active URINE 11/07 2042 Complete URINE DRUG SCREEN FOR ER ONLY 11/07 2042 Complete TEGRETOL LEVEL 11/07 2042 Complete ETHANOL 11/07 2042 Complete COMPREHENSIVE METABOLIC PANEL 11/07 2042 Complete CBC WITHOUT DIFFERENTIAL 11/07 2042 Complete Current Medications Sig/Yaneth Start time Last Medication Dose Stop Time Status Admin Lamotrigine 25 MG DAILY 11/08 1000 AC 11/08 (LaMICtal) 1010 Carbamazepine 200 MG BID 11/07 2242 UNVr 11/07 (Tegretol) 2306 Quetiapine Fumarate 200 MG QPM 11/07 220 UNVr 11/07 (Seroquel) 2156 Laboratory Tests 11/07/17 2145: Carbamazepine 5.3, Serum Alcohol < 10.0 11/07/17 2145: Anion Gap 12, Estimated GFR > 60, BUN/Creatinine Ratio 12.5, Glucose 85, Calcium 9.5, Total Bilirubin 0.4, AST 21, ALT 43, Alkaline Phosphatase 65, Total Protein 7.0, Albumin 4.2, Globulin 2.8, Albumin/Globulin Ratio 1.5, CBC w Diff NO MAN DIFF REQ, RBC 4.03 L, MCV 95.7, MCH 32.6 H, RDW 13.9, MPV 7.2 L, Gran % 58.1, Lymphocytes % 31.8, Monocytes % 6.1, Eosinophils % 3.4, Basophils % 0.6, Absolute Granulocytes 6.2, Absolute Lymphocytes 3.4, Absolute Monocytes 0.7 H, Absolute Eosinophils 0.4, Absolute Basophils 0.1, PUBS MCHC 34.1, Urine Opiates Screen < 100.00, Methadone Screen 51, Barbiturate Screen > 800 H, Ur Phencyclidine Scrn < 6.00, Amphetamines Screen 184, U Benzodiazepines Scrn < 85, Urine Cocaine Screen < 50, Urine Cannabis Screen > 80.00 H, Urine Test NEGATIVE Hand-Off Endorsed To: Albina MANZO,Joe Anna Endorsed Time: 0700 Pending: consult (Bala MANZO,Agustín) Departure Departure Disposition: STILL A PATIENT Condition: Stable Clinical Impression Primary Impression: Bipolar disorder with psychotic features Secondary Impressions: Cannabis abuse Referrals: Josefa MANZO,Max Hernandez (PCP/Family) Departure Forms: Customer Survey General Discharge Information (Agustín Mckenna MD) Departure Comments 11/08/17 The patient was signed out to me by Dr. Mckenna at 7 am She is pending disposition by crisis. (Mikel Shukla DO)
[2017-11-07 22:07] LABS: ABSOLUTE BASOPHIL COUNT 0.1 /CUMM (0.0-0.2); ABSOLUTE EOSINOPHIL COUNT 0.4 /CUMM (0.0-0.7); ABSOLUTE GRANULOCYTE CT 6.2 /CUMM (1.4-6.5); ABSOLUTE LYMPH COUNT 3.4 /CUMM (1.2-3.4); ABSOLUTE MONOCYTE COUNT 0.7 /CUMM (0.10-0.60); BASOPHIL % 0.6 % (0.0-2.0); EOSINOPHIL % 3.4 % (0-5); GRANULOCYTE % 58.1 % (42.2-75.2); HEMATOCRIT 38.5 % (37-47); MEAN CORPUSCULAR HGB 32.6 PG (27.0-31.0); MEAN CORPUSCULAR HGB CONC 34.1 G/DL (33.0-37.0); MEAN CORPUSCULAR VOLUME 95.7 FL (81.0-99.0); MEAN PLATELET VOLUME 7.2 FL (7.4-10.4); PLATELET COUNT 344 /CUMM (130-400); RBC DISTRIBUTION WIDTH 13.9 % (11.5-14.5); RED BLOOD CELL CT 4.03 /CUMM (4.20-5.40); WHITE BLOOD CELL COUNT 10.7 /CUMM (4.8-10.8)
--- NOTE | 2017-11-08 10:55 | ED PSY CRISIS COLLATERAL NOTE ---
Collateral Note Collateral Note Family/Inform/Dewey Contacts: Spoke with patient's mother (Wendy Malagon- [phone]). Mom reports that Tawanda is not stable. For the past 2-3 days she has been talking about trying to solve a murder mystery. Mom reports she called the police to have pt taken back to the hospital. Mother reports that the patient is under a lot of stress as mom is evicting Tawanda out of her home. Mom reports she started the formal process in February 2017 and pt was supposed to be out of the home by September 27. However mother reports that she allowed Tawanda to stay with her through the holidays. She reports she can no longer take care of the patient. She feels as though she is at a "loss". Mom reports she is on disability and gets a check on the 3rd of every month. She reports the money is gone already for this month. Mom believes she spends the money on gifts for people and drugs. Mom believes patient has a "shopping addiction". Mom does not believe she is taking her medications and is not keeping her appointments. Mom believes she needs to be admitted.
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
[2017-11-08 16:51] VITALS: BP 145/98
--- NOTE | 2017-11-08 17:57 | PN- Att Addend ---
Attending Addendum Attending Brief Note Patient seen and examined, complains of pain in the neck and shoulders. Patient was recently admitted to Inpatient Psychiatry and now admitted again with paranoia. Thinking that she is being followed by some [place] mob because and [place] boy was murdered 3 years ago. Vital Signs Date Time Temp Pulse Resp B/P B/P Pulse O2 O2 Flow FiO2 Mean Ox Delivery Rate 11/08 1651 98.1 87 145/98 11/08 1552 97.7 81 20 128/78 97 11/08 1353 98.1 84 16 34/82 11/08 1142 98.2 82 18 148/82 98 Room Air 11/08 0656 97.0 93 18 122/82 98 Room Air 11/07 2215 98.0 102 19 132/88 97 Room Air 11/07 2135 96 Room Air 11/07 2129 98.4 107 18 128/90 96 Room Air on exam; awake, nad cv; s1,s2, rrr resp; clear abd; soft, nt, bs+ ext; no edema. Laboratory Tests 11/07 11/07 2145 2145 Chemistry Sodium (137 - 145 mmol/L) 141 Potassium (3.5 - 5.1 mmol/L) 3.5 Chloride (98 - 107 mmol/L) 104 Carbon Dioxide (22 - 30 mmol/L) 25 Anion Gap (5 - 16) 12 BUN (7 - 17 mg/dL) 10 Creatinine (0.5 - 1.0 mg/dL) 0.8 Estimated GFR (>60 ml/min) > 60 BUN/Creatinine Ratio (7 - 25 %) 12.5 Glucose (65 - 99 mg/dL) 85 Calcium (8.4 - 10.2 mg/dL) 9.5 Total Bilirubin (0.2 - 1.3 mg/dL) 0.4 AST (14 - 36 U/L) 21 ALT (9 - 52 U/L) 43 Alkaline Phosphatase (<127 U/L) 65 Total Protein (6.3 - 8.2 g/dL) 7.0 Albumin (3.5 - 5.0 g/dL) 4.2 Globulin (1.9 - 4.2 gm/dL) 2.8 Albumin/Globulin Ratio (1.1 - 2.2 %) 1.5 Hematology CBC w Diff NO MAN DIFF REQ WBC (4.8 - 10.8 /CUMM) 10.7 RBC (4.20 - 5.40 /CUMM) 4.03 L Hgb (12.0 - 16.0 G/DL) 13.1 Hct (37 - 47 %) 38.5 MCV (81.0 - 99.0 FL) 95.7 MCH (27.0 - 31.0 PG) 32.6 H RDW (11.5 - 14.5 %) 13.9 Plt Count (130 - 400 /CUMM) 344 MPV (7.4 - 10.4 FL) 7.2 L Gran % (42.2 - 75.2 %) 58.1 Lymphocytes % (20.5 - 51.1 %) 31.8 Monocytes % (1.7 - 9.3 %) 6.1 Eosinophils % (0 - 5 %) 3.4 Basophils % (0.0 - 2.0 %) 0.6 Absolute Granulocytes (1.4 - 6.5 /CUMM) 6.2 Absolute Lymphocytes (1.2 - 3.4 /CUMM) 3.4 Absolute Monocytes (0.10 - 0.60 /CUMM) 0.7 H Absolute Eosinophils (0.0 - 0.7 /CUMM) 0.4 Absolute Basophils (0.0 - 0.2 /CUMM) 0.1 PUBS MCHC (33.0 - 37.0 G/DL) 34.1 Toxicology Urine Opiates Screen (>2000 NG/ML) < 100.00 Methadone Screen (>300 NG/ML) 51 Barbiturate Screen (>200 NG/ML) > 800 H Carbamazepine (4.0 - 12.0 ug/mL) 5.3 Ur Phencyclidine Scrn (>25 NG/ML) < 6.00 Amphetamines Screen (>1000 NG/ML) 184 U Benzodiazepines Scrn (>200 NG/ML) < 85 Urine Cocaine Screen (>300 NG/ML) < 50 Urine Cannabis Screen (>50 NG/ML) > 80.00 H Serum Alcohol (<10 MG/DL) < 10.0 Urines Urine Test NEGATIVE A/P; 42-year-old female with past medical history significant for anxiety, depression, bipolar disorder, migraine headaches recently admitted to Inpatient Psychiatry and then discharged. Now admitted again with some kind of paranoia and bipolar disorder. Psych management per psych. Please confirm if she is taking Flexeril as she claims but in the medications same history she has not filled Flexeril since February 2017. She claims that she takes Flexeril for her neck pain. If that is the case, she can be ordered her home dose. For the psych management would be up to psychiatry.
[2017-11-08 19:51] VITALS: BP 133/81
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
[2017-11-09 07:36] VITALS: BP 125/87
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
[2017-11-09 12:12] VITALS: BP 142/100
[2017-11-09 16:03] VITALS: BP 150/90
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
[2017-11-09 19:39] VITALS: BP 145/91
[2017-11-10 07:50] VITALS: BP 125/76
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
[2017-11-10 12:27] VITALS: BP 140/95
[2017-11-10 16:01] VITALS: BP 136/98
[2017-11-10 20:27] VITALS: BP 135/82
[2017-11-11 08:01] VITALS: BP 139/77
[2017-11-11 11:59] VITALS: BP 132/93
--- NOTE | 2017-11-11 12:00 | CP SOUTH PROGRESS NOTE PSYCH ---
Psych (Inpt) Progress Note Progress Note Include the following elements, when applicable: Involvement in the active treatment of the patient with behavioral observations of the patient and the patient's response to the treatment. Review of the ongoing treatment process in the context of the treatment plan. Indication of how multi-disciplinary staff members are carrying out the treatment plan. Plans for future interventions and recommendations for revision of the treatment plan. Liaison with other physicians/providers. Progress Note: Pt asked about "soul mate" and "parallel flames." SPoke about her belief in supernatural abilities and heightened sensitivity to the world. Reiterated her belief that she is psychic. Denies SI or HI. Tearful at times. Very labile. Current Medications Sig/Yaneth Start time Last Medication Dose Route Stop Time Status Admin Acetaminophen 650 MG .STK-MED ONE 11/10 1741 DC PO 11/10 1742 Acetaminophen 650 MG Q6P PRN 11/08 1445 AC 11/10 PO 1741 Al Hydroxide/Mg 30 ML Q4-6 PRN PRN 11/08 1445 AC Hydroxide PO Carbamazepine 200 MG BID 11/07 2242 AC 11/11 PO 0816 Gabapentin 300 MG TID 11/10 1000 AC 11/11 PO 0816 Gabapentin 300 MG Q6P PRN 11/08 1445 AC 11/10 PO 1443 Ibuprofen 600 MG Q8P PRN 11/11 1200 UNVr PO Lamotrigine 125 MG DAILY 11/10 1000 AC 11/11 PO 0817 Lidocaine 1 PAT DAILY 11/10 1000 AC 11/11 EXT 0817 Lorazepam 2 MG Q6P PRN 11/08 1445 AC IM Magnesium Hydroxide 30 ML AT BEDTIME PRN 11/08 1445 AC PO Methyl Salicylate 1 DAMARI Q6P PRN 11/11 1200 UNVr TOP Nicotine 21 MG DAILY 11/10 1000 AC 11/11 TOP 0817 Nicotine 2 MG Q2P PRN 11/10 0915 AC 11/11 PO 0817 Olanzapine 10 MG Q12P PRN 11/08 1445 AC IM Quetiapine Fumarate 200 MG QPM 11/07 2200 AC 11/10 PO 2126 Trazodone HCl 50 MG AT BEDTIME NEED.. 11/08 1445 AC 11/08 PO 2114 Vital Signs Date Time Temp Pulse Resp B/P B/P Pulse O2 O2 Flow FiO2 Mean Ox Delivery Rate 11/11 0801 97.5 82 139/77 11/10 2026 97.8 90 135/82 11/10 1601 90 136/98 11/10 1227 89 140/95 MSE General appearance: very good hygiene and grooming; Attitude: cooperative; Eye contact: appropriate; Movement: no psychomotor agitation or slowing; Speech: nl fluency, nl rate/rhythm, nl volume, nl prosody; Mood: "good" Affect: irritable, flat, appropriate, constricted, ++ labile, congruent; Thought process: linear and goal-directed; Thought content: denied SI or HI, ++ delusions around psychic abilities and mob and murder; Perception: denied hallucinations- auditory, visual, does not appear to be responding to internal stimuli; I/J: limited A/P: Pt with bipolar disorder with psychotic features with continued delusions. - Unfortunately, not interested in more aggressive tx around delusions or for increase mood stabilization - icy hot cream added for topical pain relief - motrin added to alternate with tylenol for pain relief -Encourage integration into the milieu
[2017-11-11 15:59] VITALS: BP 139/91
[2017-11-11 19:59] VITALS: BP 145/99
[2017-11-12 08:02] VITALS: BP 117/91
[2017-11-12 12:10] VITALS: BP 159/87
--- NOTE | 2017-11-12 13:55 | CP SOUTH PROGRESS NOTE PSYCH ---
Psych (Inpt) Progress Note Progress Note Include the following elements, when applicable: Involvement in the active treatment of the patient with behavioral observations of the patient and the patient's response to the treatment. Review of the ongoing treatment process in the context of the treatment plan. Indication of how multi-disciplinary staff members are carrying out the treatment plan. Plans for future interventions and recommendations for revision of the treatment plan. Liaison with other physicians/providers. Progress Note: Dr. Rousseau's notes reviewed. Case and treatment plan discussed in team meeting. Patient spoke of psychic material on Sunday. Remains preoccupied about murder of an [place] youth in [place]. Labile, crying. Tegretol this morning is therapeutic at 6.6. Patient seen at 1:27 PM with Marianela Turner LCSW. Patient was asleep in her room but got up and met with us in office. Patient is anticipating the onset of a migraine. Reports the weekend was good. 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 Her three-day paper expires on Sunday and we anticipate discharging her on Sunday. She reports she cannot attend [facility] due to work schedule. Reports that her insights and intuitive guidance are real things that happened. Refuses to increase Seroquel dose. Reports she could not breathe at night on a higher Seroquel dose and reports she is sleeping well now. Affect is calm and euthymic. Rates sad mood about 3/10. Rates anxiety about 2 /10, nervous about work. Denies feeling hopeless, helpless or worthless. Feels guilty for having bumped a staff member's head in the emergency room. Denies active and passive suicidal ideation. Denies homicidal ideation. Denies auditory and visual hallucinations. Denies paranoid ideation. Reports sleep is good and appetite is very good. Reports energy could be better. Requesting p.r.n. Atarax prescription for after discharge and she feelsit will help her in lieu of marijuana. We strongly advised her to stop marijuana use. We will check an EKG for QT interval. We recommended to the patient that she limit discussion of her psychic abilities and material about the [place] murder to either journaling or to discussions with treaters. Patient laments the fact that she has bipolar disorder. Patient reports that both marijuana and a peer in the community, Jesus, are toxic to her and trigger her. IMPRESSION: Slow progress. Continue present treatment plan. Anticipate likely discharge on Sunday. Housing remains problematic. We anticipate referring patient back to [facility].
--- NOTE | 2017-11-12 13:56 | SOCIAL WORKER PROG NOTE PSYCH ---
Social Work Progress Note Progress Note Dr. Cortés and I met with Tawanda together. Tawanda was a little less labile and pressured than Sunday. She shared that she is not going to do anything with the information regarding the Azeri boy. She said she will work on journaling the information and keep it to herself. Let her know the consequences that could happen if she were to start discussing that again. A referral to [facility] was submitted today. Tawanda stated if she can't get in there, she would most likely stay with a friend. She is desperate to return to her job at the [employer]. She reports she has a shift scheduled for . She wants to d/c by Sunday. We discussed her 3 day paper and the timeframe. Looks like it was submitted on Sunday at 7:53am and would be up on Sunday. Told her she should plan to d/c . Discussed her symptoms related to her Bipolar D/O and the need to take care of herself like any other medical condition. She does not want to go to [facility], due to work. She signed a release for me to speak with [facility]. Dr. Cortés strongly recommended that she remain off marijuana as it is increasing her paranoia. She stated she was going to do that. She asked if she could take Atarax for anxiety. Dr. Cortés would like an EKG to be done first. Refused an increase in her other medication. Rates sad at a 3 (10 being most severe), Anxiety 4 (1-10, 10 being most severe). Called [facility], but their office is closed for the day due to the holiday.
[2017-11-12 15:49] VITALS: BP 143/98
[2017-11-12 19:42] VITALS: BP 139/86
[2017-11-13 08:00] VITALS: BP 108/78
--- NOTE | 2017-11-13 08:49 | SOCIAL WORKER PROG NOTE PSYCH ---
See Addendum Social Work Progress Note Progress Note Called [facility] this morning and left another message to discuss Tawanda's aftercare plans. Called Saad from [facility] to discuss Tawanda's referral. Saad will see her late this morning on the unit. Saad came in around 11am. We met together. We reviewed Tawanda's current stressors and symptoms. Tawanda did not bring up the topic of the [place] murder. She remains a bit disorganized with her thoughts. Focused on the plan of returning to work and not doing IOP. Housing remains an issue of concern. I told her [facility] may not take her without a solid plan from there. Saad will call [facility] to discuss further. Emphasized the need for her to call [address] again and schedule another CAN assessment. Saad has Tawanda's contact information for discharge. Tawanda appreciated the referral to [facility]. Tawanda called [address] and got an intake for 11/26 from 12-2pm at [facility]. Tawanda was served paperwork from a director critical care today regarding eviction from her Mom's house. Tawanda was expecting it. She stated she can only return there to get her belongings. She is worried about where she will be staying tomorrow. Keeps talking about staying with a friend or two, but she hasn't spoken with them. Called [facility] again to try and secure appts. for Tawanda. Left a message.
--- NOTE | 2017-11-13 10:37 | SOCIAL WORKER PROG NOTE PSYCH ---
Social Work Progress Note Progress Note In order for Tawanda to be placed at [facility], her discharge plan from the hospital can not be "penitentiary". Emperatriz would also like to have her staff come out to interview pt prior to acceptance. Please update their program with her discharge plan.
[2017-11-13 12:01] VITALS: BP 135/95
--- NOTE | 2017-11-13 14:43 | CP SOUTH PROGRESS NOTE PSYCH ---
Psych (Inpt) Progress Note Progress Note Include the following elements, when applicable: Involvement in the active treatment of the patient with behavioral observations of the patient and the patient's response to the treatment. Review of the ongoing treatment process in the context of the treatment plan. Indication of how multi-disciplinary staff members are carrying out the treatment plan. Plans for future interventions and recommendations for revision of the treatment plan. Liaison with other physicians/providers. Progress Note: Case and treatment plan discussed in team meeting. Staff reports that last night, the patient spoke about being psychic. Described as calm and appropriate in morning meeting. We are trying to make referral to [facility]. Anticipate discharge tomorrow at 11 AM. EKG is normal with normal QT/QTc. Patient seen at 12:03 PM. Reports doing well. States she met with Cari. Affect is euthymic/upbeat. Denies feeling manic or hypomanic. Wants discharge tomorrow. Asked me to discontinue standing Neurontin, which I did. She would like prn Atarax. Major risks and benefits of Atarax were discussed with the patient. She was advised not to drive or operate heavy machinery if groggy from this medication. Reports mood is good. Rates sad mood at maybe a 4/10. Rates anxiety 5/10. Denies feeling hopeless, helpless, worthless or guilty. Denies suicidal and homicidal ideation. Denies auditory and visual hallucinations. Feels that "Jesus" is out to harm her. Reports sleep, appetite and energy are good. IMPRESSION: Condition improving. Anticipate discharge tomorrow to the community with follow -up at [facility].
[2017-11-13 16:20] VITALS: BP 141/98
[2017-11-13 21:31] VITALS: BP 139/90
[2017-11-14 08:05] VITALS: BP 126/94
[2017-11-14] MEDS ORDERED: NICOTINE PATCH1 EAC3 TOP (08:53)
[2017-11-14] MEDS ORDERED: HYDROXYZINE HCL25 M2 PO (08:53)
[2017-11-14] MEDS ORDERED: LAMICTAL100 M2 PO (08:53)
[2017-11-14] MEDS ORDERED: SEROQUEL200 M1 PO (08:53)
[2017-11-14] MEDS ORDERED: CARBAMAZEPINE200 M3 PO (08:53)
[2017-11-14] MEDS ORDERED: LAMICTAL25 M1 PO (08:53)
--- NOTE | 2017-11-14 09:00 | Patient Discharge Instructions ---
Psych Discharge Inst General Discharge Information Reason for Admission: Delusional/paranoid. Talking about receiving psychic information about a murder victim. 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 Summary Tests/Major Procedures Lab ALT 43 U/L 11/07/172144 AST 21 U/L 11/07/172144 BUN 10 mg/dL 11/07/172144 Carbon Dioxide 25 mmol/L 11/07/172144 Chloride 104 mmol/L 11/07/172144 Creatinine 0.8 mg/dL 11/07/172144 Estimated GFR > 60 ml/min 11/07/172144 Glucose 85 mg/dL 11/07/172144 Potassium 3.5 mmol/L 11/07/172144 Sodium 141 mmol/L 11/07/172144 Absolute Monocytes 0.7 /CUMM H 11/07/172144 Hct 38.5 % 11/07/172144 Hgb 13.1 G/DL 11/07/172144 MCH 32.6 PG H 11/07/172144 MPV 7.2 FL L 11/07/172144 Plt Count 344 /CUMM 11/07/172144 RBC 4.03 /CUMM L 11/07/172144 WBC 10.7 /CUMM 11/07/172144 Barbiturate Screen > 800 NG/ML H 11/07/172144 Carbamazepine 5.3 ug/mL 11/07/172144 Carbamazepine 6.6 ug/mL 11/12/17 0638 Serum Alcohol < 10.0 MG/DL 11/07/172144 Urine Cannabis Screen > 80.00 NG/ML H 11/07/17 214 Urine Test NEGATIVE 11/07/172144 EKG 11/12/17: sinus rhythm @ 76, no significant change since previous tracing, normal EKG, QT 416, QTc 468. Studies Pending at [place]: None. Patient Instructions Contact Information Your Psychiatrist on [facility] was Andres Cortés MD * If you are experiencing an emergency related to this hospitalization, please call [phone] to contact the treating psychiatrist or the psychiatrist-on- call. * To Request a copy of your medical records, please contact the Medical Records Department at [phone]. * To request results of studies pending at the time of discharge, please call [phone]. * Continue your Medications until directed to stop by your Healthcare provider. General Medication Information Please continue to take your new medications and your continued home medications , unless otherwise indicated on your discharge medication list, or unless directed by your MD or [facility] to stop them. Special Instructions Diet Regular Activity Normal Other Inst/Recommendations Stay away from marijuana/all drugs. Please get MRI followup of brain AVM. - Tobacco Use Treatment Offered Post DC Medications Offered: Script Given-See Med List Post DC Tobacco Treatment Plan: [facility] Program Appt Date: 11/21/17 Program Appt Time: 1600 - EtOH/Drug Use D/O Treatment Offered Post DC Medications Offered: Med Not Indicated for D/O Post DC EtOH/SubAbuse TX Plan: Other SubAbuse/Dual Pgm ([facility]) Program Appt Date: 11/15/17 (TBA) Program Appt Time: 0900 (TBA) Metabolic Screening () Not Applicable, patient not on a neuroleptic. OR () Patient on a neuroleptic(s) . Enter below results for Hemoglobin A1C, and lipid panel if obtained during the last 365 days. BMI: 33.600 Blood Pressure: 126/94 Laboratory Results From [facility] (If applicable): Lab Cholesterol 273 MG/DL H 10/17/17 2144 Cholesterol/HDL Ratio 6 % H 10/17/17 2144 HDL Cholesterol 44 mg/dL 10/17/17 2144 Hemoglobin A1c 5.7 % 05/05/17 0525 LDL Cholesterol, Calc 188 mg/dL H 10/17/17 2144 Triglycerides 205 mg/dL H 10/17/17 2144 Advance Directives Does the Patient have Medical Advance Directives No/Refused further info Does Pt have Psychiatric Advance Directives? No/Refused further info Does Patient have a Designated Surrogate Decision Maker: No Information About Psychiatric Advance Directives Provided? Refused Discharge Plan Post Hospital Treatment Plan: Plans to stay with friends. Specifics TBA.
[2017-11-14] MEDS ORDERED: LIDODERM1 EACH EXT (09:02)
--- NOTE | 2017-11-14 12:15 | SOCIAL WORKER PROG NOTE PSYCH ---
Social Work Progress Note Faxed Referral(s) Referred To: [facility] Transition [facility] Documents sent: Health Summary Faxed to: Cristy Coe Fax #: [phone] Faxed by: Leander Lim Date faxed: 11/14/17 Time Faxed: [phone] Comment: faxed confirmation received 11:55a
--- NOTE | 2017-11-14 13:11 | CP SOUTH PROGRESS NOTE PSYCH ---
Psych (Inpt) Progress Note Progress Note Include the following elements, when applicable: Involvement in the active treatment of the patient with behavioral observations of the patient and the patient's response to the treatment. Review of the ongoing treatment process in the context of the treatment plan. Indication of how multi-disciplinary staff members are carrying out the treatment plan. Plans for future interventions and recommendations for revision of the treatment plan. Liaison with other physicians/providers. Progress Note: Case and treatment plan discussed in team meeting. Staff reports that the patient appears calm. Agrees to take her medications. Patient plans to stay at a hotel. Patient seen at 10:16 AM. Feels well, a little emotional because of a guitar song that was played. Wants to leave. Three-day paper is in place. Does not want to lose her job. I asked about urine drug screen having been positive for barbiturates. She has difficulty explaining it. She might have taken Fioricet prior to admission. She claims she dipped her finger into a white powder in a vial in the emergency room and taste the powder. Affect is calm and euthymic. Mood is fine. Rate sad mood 5/10 and anxiety 5/10. Denies feeling hopeless, helpless, worthless or guilty. Denies active and passive suicidal ideation. Denies homicidal ideation. Denies auditory and visual hallucinations and paranoid ideation. Reports that sleep and appetite are good. Reports energy is so-so. Tolerating medications well, without complaint. Feels ready and safe for discharge. Plans to follow-up at the [facility]. IMPRESSION: Condition improved. Okay for discharge today with plan as above.
--- NOTE | 2017-11-14 13:14 | DISCHARGE SUMMARY REPORT-PSYCH ---
Visit Information Visit Dates/Diagnosis' Admission Date: 11/08/17 Discharge Date: 11/14/17 Reason for Admission: Delusional/paranoid. Talking about receiving psychic information about a murder victim. Psy Discharge Primary Diag: Bipolar, manic with psychotic features Psy Discharge Secondary Diag: Cannabis use disorder Hx AVM at [facility] Hospital Course Significant Lab Findings: Lab ALT 43 U/L 11/07/172144 AST 21 U/L 11/07/172144 BUN 10 mg/dL 11/07/172144 Carbon Dioxide 25 mmol/L 11/07/172144 Chloride 104 mmol/L 11/07/172144 Creatinine 0.8 mg/dL 11/07/172144 Estimated GFR > 60 ml/min 11/07/172144 Glucose 85 mg/dL 11/07/172144 Potassium 3.5 mmol/L 11/07/172144 Sodium 141 mmol/L 11/07/172144 Absolute Monocytes 0.7 /CUMM H 11/07/172144 Hct 38.5 % 11/07/172144 Hgb 13.1 G/DL 11/07/172144 MCH 32.6 PG H 11/07/172144 MPV 7.2 FL L 11/07/172144 Plt Count 344 /CUMM 11/07/172144 RBC 4.03 /CUMM L 11/07/172144 WBC 10.7 /CUMM 11/07/172144 Barbiturate Screen > 800 NG/ML H 11/07/172144 Carbamazepine 5.3 ug/mL 11/07/172144 Carbamazepine 6.6 ug/mL 11/12/17 0638 Serum Alcohol < 10.0 MG/DL 11/07/172144 Urine Cannabis Screen > 80.00 NG/ML H 11/07/172144 Urine Test NEGATIVE 11/07/172144 EKG 11/12/17: sinus rhythm @ 76, no significant change since previous tracing, normal EKG, QT 416, QTc 468. Studies Pending at OR: Course Complications: None. Consultations: Patient was seen for admission H&P by Dr. Toscano, who noted: "A/P; 42-year-old female with past medical history significant for anxiety, depression, bipolar disorder, migraine headaches recently admitted to Inpatient Psychiatry and then discharged. Now admitted again with some kind of paranoia and bipolar disorder. Psych management per psych. Please confirm if she is taking Flexeril as she claims but in the medications same history she has not filled Flexeril since February 2017. She claims that she takes Flexeril for her neck pain. If that is the case, she can be ordered her home dose. For the psych management would be up to psychiatry. Allergies: Coded Allergies: haloperidol (From HALDOL) ("seizure like coma sleep" 11/07/17) Uncoded Allergies: DOG SHAMPOO (HIVES AND ITCHING ALL OVER 03/31/15) Hospital Course/TX Response: The patient was monitored on the unit for safety, psychosis and mood disorder. The patient had paranoid/delusions upon admission. She was restarted on her home medications. She was advised to stop cannabis use. The patient was advised to contain paranoid material to her journaling and to discussions with clinicians. Gabapentin was started at 300 mg t.i.d. but the patient didn't like it and it was stopped. The patient requested prn Atarax for anxiety/insomnia and this was ordered. Delusional material has improved greatly and is more submerged. Mood has stabilized significantly. Progress note from date of discharge, 11/14/17: Case and treatment plan discussed in team meeting. Staff reports that the patient appears calm. Agrees to take her medications. Patient plans to stay at a hotel. Patient seen at 10:16 AM. Feels well, a little emotional because of a guitar song that was played. Wants to leave. Three-day paper is in place. Does not want to lose her job. I asked about urine drug screen having been positive for barbiturates. She has difficulty explaining it. She might have taken Fioricet prior to admission. She claims she dipped her finger into a white powder in a vial in the emergency room and taste the powder. Affect is calm and euthymic. Mood is fine. Rate sad mood 5/10 and anxiety 5/10. Denies feeling hopeless, helpless, worthless or guilty. Denies active and passive suicidal ideation. Denies homicidal ideation. Denies auditory and visual hallucinations and paranoid ideation. Reports that sleep and appetite are good. Reports energy is so-so. Tolerating medications well, without complaint. Feels ready and safe for discharge. Plans to follow-up at the [facility]. IMPRESSION: Condition improved. Okay for discharge today with plan as above. Discharge HBIPS - Tobacco Use Treatment Offered Post DC Medications Offered: Script Given-See Med List Post DC Tobacco Treatment Plan: [facility] Program Appt Date: 11/21/17 Program Appt Time: 1600 - EtOH/Drug Use D/O Treatment Offered Post DC Medications Offered: Med Not Indicated for D/O Post DC EtOH/SubAbuse TX Plan: Other SubAbuse/Dual Pgm ([facility]) Program Appt Date: 11/15/17 Program Appt Time: 1330 (Catalina Diallo APRN) Metabolic Screening - Screen if on a Neuroleptic Medication - Metabolic screening should include: - Blood Pressure, BMI, Glucose or Hgb A1c, & a - Lipid profile from within the past 365 days. Metabolic Screening () Not Applicable, patient not on a neuroleptic. OR () Patient on a neuroleptic(s) . Enter below results for Hemoglobin A1C, and lipid panel if obtained during the last 365 days. BMI: 33.600 Blood Pressure: 126/94 Laboratory Results From [place] EHR (If applicable): Lab Cholesterol 273 MG/DL H 10/17/17 2144 Cholesterol/HDL Ratio 6 % H 10/17/174 HDL Cholesterol 44 mg/dL 10/17/17 2144 Hemoglobin A1c 5.7 % 05/05/17 0525 LDL Cholesterol, Calc 188 mg/dL H 10/17/17 2144 Triglycerides 205 mg/dL H 10/17/17 2144 Discharge Instructions General Discharge Information Multiple Neuroleptics: ([x]) Not Applicable OR Document below three failed attempts at monotherapy, or a plan to taper to monotherapy, or augmentation of Clozapine. () Discharge Diet Regular Discharge Activity Normal DC Disposition: Patient plans to stay at a hotel. [facility] intake on 11/26/17 Referrals Ordered Referrals Provider Referral 11/15/17 For Groups: [ CARE] Care 11/15/17 at 1:30p Catalina Diallo APRN Provider Referral 11/21/17 For Groups: [ OP CeSSATION] Smoking Cessation 11/21/17 4pm Provider Referral 11/26/17 For Groups: [[facility] Intake] [facility] intake on 11/26/17 Prescriptions Stop taking the following medications: Nicotine (Nicotine Patch) 14 MG/24 HOUR PATCH.TD24 On the skin DAILY Qty = 14 Carbamide Peroxide (Carbamide) 6.5 % DROPS OTIC THREE TIMES DAILY Qty = 1 Carbamazepine (Tegretol) 200 MG TABLET ORAL TWICE DAILY Qty = 21 Continue taking these medications: Carbamazepine (Carbamazepine) 200 MG TABLET 200 Milligram ORAL TWICE DAILY Qty = 28 Comments: Last Taken:11/14/17 Time:0900 This prescription has been renewed Lamotrigine (Lamictal) 25 MG TABLET 1 Tablet ORAL DAILY Qty = 14 Comments: Last Taken:11/14/17 Time:0900 This prescription has been renewed Lamotrigine (Lamictal) 100 MG TABLET 1 Tablet ORAL DAILY Qty = 14 Comments: Last Taken:11/14/17 Time:0900 This prescription has been renewed Quetiapine Fumarate (Seroquel) 200 MG TABLET 1 Tablet ORAL AT BEDTIME Qty = 14 Comments: Last Taken:11/13/17 Time:2100 This prescription has been renewed Start taking the following new medications: Nicotine (Nicotine Patch) 21 MG/24 HOUR PATCH.TD24 21 Milligram On the skin DAILY Qty = 14 No Refills Comments: Last Taken:11/14/17 Time:0900 Hydroxyzine Hydrochloride (Atarax) 25 MG TAB 25 Milligram ORAL EVERY SIX HOURS NEEDED as needed for ANXIETY/AGITATION/ INSOMNIA Qty = 28 No Refills Comments: Last Taken:11/13/17 Time:1830 Lidocaine (Lidoderm) 5 % ADH..PATCH 1 Patch ON SKIN DAILY Qty = 14 No Refills Comments: Last Taken:11/13/17 Time:1000 Other Inst/Recommendations Stay away from marijuana/all drugs. Please get MRI followup of brain AVM. Copies To: Catalina Diallo APRN
== END 2017-11-14 15:38 | DRG 885 ==
LOC: ERH 20:37 → ENRESERV 11-08 13:47 → ERHI 11-08 14:32 → CP SOUTH 11-08 14:32 → ENRESERV 11-08 23:59 → CANRESERV 11-08 23:59 → CP SOUTH 11-13 17:38
PROVIDERS: Emergency Medicine
DX: F31.2 Bipolar disorder, current episode manic severe with psychotic features (principal); F12.90 Cannabis use, unspecified, uncomplicated; Z86.79 Personal history of other diseases of the circulatory system
CPT/HCPCS: 36415; 80307; 81025; 93005; 93010; G0480; J1885; J3490

== ENCOUNTER 2018-02-15 15:50 | Inpatient (IN) | payer OTHER, MEDICARE ==
[~2018-02-15] VITALS: Ht 165.1 cm; Wt 93.0 kg
[~2018-02-15 15:50] MED LIST changes: +HYDROXYZINE HCL25 M2 PO; +LIDODERM1 EACH EXT
--- NOTE | 2018-02-15 16:17 | ED PSYCHIATRIC COMPLAINT ---
History of Present Illness General Chief Complaint: Psychiatric Related Complaint Stated Complaint: "FEELING LIKE I'M HAVING A BREAKDOWN" +SI Source: patient, old records Exam Limitations: no limitations Vital Signs & Intake/Output Vital Signs & Intake/Output Vital Signs Date Time Temp Pulse Resp B/P B/P Pulse O2 O2 Flow FiO2 Mean Ox Delivery Rate 02/15 2103 97.3 103 18 116/72 97 Room Air 02/15 1913 102 18 120/68 98 Room Air 02/15 1655 97 02/15 1601 96.9 114 18 110/73 97 Room Air Room Air ED Intake and Output 02/16 0000 02/15 1200 Intake Total 0 Output Total Balance 0 Intake, Oral 0 Patient 205 lb Weight Weight Reported by Patient Measurement Method Allergies Coded Allergies: haloperidol (From HALDOL) ("seizure like coma sleep" 11/07/17) Uncoded Allergies: DOG SHAMPOO (HIVES AND ITCHING ALL OVER 03/31/15) Reconcile Medications Lamotrigine (Lamictal) 25 MG TABLET 1 TAB PO DAILY mood stabilization Mirtazapine 15 MG TABLET 1 TAB PO QPM MENTAL HEALTH (Reported) Quetiapine Fumarate (Seroquel) 200 MG TABLET 1 TAB PO AT BEDTIME to clear thoughts Trazodone HCl 50 MG TABLET 1 TAB PO QPM SLEEP/MENTAL HEALTH (Reported) Triage Note: PT TO ED WITH C/O DEPRESSION AND SUICIDAL THOUGHTS "LIVING IN MY CAR, THINKING MAYBE I COULD DRIVE INTO A WALL, OR TAKING A BUNCH OF XANAX OR HEROIN AND OVERDOSE". PT TEARY IN TRIAGE Triage Nurses Notes Reviewed? yes Onset: Abrupt Duration: week(s):, constant, getting worse Timing: recent history Severity: severe Severity Numbers: 10 Associated Symptoms: suicidal ideation, depression : No Patient currently breastfeeds: No HPI: 42-year-old female presents to ER for evaluation stating that she is having worsening depression and thoughts of wanting to harm herself. Patient is well- known to this ER she's been seen numerous times in the past. She was last here at the end of December of last month which time she was transferred to [facility]. She states she was feeling slightly better after that time however is concerned that the police and "grateful family" is after her. The patient states that she slept in her car last night and that she was having thoughts all night of driving into a tree or driving off a bridge. She states that she took one pain medication and had a glass of wine yesterday she denies any drug or alcohol use today. She denies HI. Her children are currently living with her father which also makes her depressed. She is currently on Lamictal Remeron and trazodone (Dong Robles) Past History Travel History Traveled to [place] past 21 day No Medical History Any Pertinent Medical History? 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 . Hx Contributory? No (Dong Robles) Review of Systems Review of Systems Constitutional: Reports: see HPI. Comments Review of systems: See HPI, All other systems negative. Constitutional, no chills no fever, HEENT: no sore throat no congestion Cardiovascular: No chest pain Skin: no rashes, no change in skin Respiratory: No dyspnea no cough no sputum GI: No nausea no vomiting, Muscle skeletal: No joint pain, no back pain Neurologic: , no headache Psych: depression,. Heme/endocrine: No bruising (Dong Robles) Physical Exam Physical Exam General Appearance: well developed/nourished, no apparent distress, alert, awake Neurological/Psychiatric: no motor/sensory deficits, awake, alert, normal mood/ affect, calm Comments: Well-developed well-nourished person in no acute distress HEENT: Normal EENT exam; PERRL, EOMI,. HEAD is atraumatic. moist mucous membranes. Neck: Supple, normal range of motion Back: Full range of motion Cardiovascular: Regular rate and rhythms no murmurs Respiratory: No respiratory distress. Patient speaking in full complete sentences. Breath sounds clear to auscultation bilaterally: NO W/R/R Abdomen: Soft, nontender nondistended, no appreciable organomegaly. Normal bowel sounds. No rebound/guarding Extremity: No edema, full range of motion of extremities Neuro: Alert oriented x3, motor sensory normal. There were no obvious focal neurologic abnormalities. Skin: No appreciable rash on exposed skin, skin is warm and dry. Psych: Mood and affect is normal, memory and judgment is normal. SAD PERSONS SAD PERSONS Response Value Depression/Hopelessness? yes 2 Previous Attempts/Psych Care yes 1 Excessive Ethanol/Drug Use? yes 1 Rational Thinking Loss? yes 2 Single//? yes 1 Stated Future Intent? yes 2 Total 9 SAD PERSONS Done? yes (Chance CAMPOS,Dong) Progress Differential Diagnosis: drug intoxication, drug overdose, drug withdrawal, electrolyte abnormality, depression, bipolar, anxiety Plan of Care: Orders Procedure Date/time Status Regular Diet 02/16 B Active Vital Signs 02/15 2200 Active Inpt Psych Teach/Educate 02/15 2200 Active Nutritional Intake, Monitor 02/15 2200 Active Inpt Psych Auricular Acupunctu 02/15 2200 Active Admit to inpatient psych 02/15 2050 Active Lab Add-on Test 02/16 2004 Active Patient Data - inpatient psych 02/15 1957 Active Admit to inpatient psych 02/15 1957 Active EKG 02/15 1957 Active Intake & Output 02/15 1654 Complete TEGRETOL LEVEL 02/15 1619 Complete Continuous Observation Monitor 02/15 1608 Complete URINE 02/15 1608 Complete URINE DRUG SCREEN FOR ER ONLY 02/15 1608 Complete URINALYSIS 02/15 1608 Complete ETHANOL 02/15 1608 Complete COMPREHENSIVE METABOLIC PANEL 02/15 1608 Complete CBC WITHOUT DIFFERENTIAL 02/15 1608 Complete ED CRISIS PSYCH CONSULT 02/15 1608 Active Vital Signs 02/15 UNK Active Nursing Misc 02/15 UNK Active Alternative Nursing Therapy 02/15 UNK Active Activity/Ambulation 02/15 UNK Complete Current Medications Sig/Yaneth Start time Last Medication Dose Stop Time Status Admin Quetiapine Fumarate 200 MG AT BEDTIME 02/15 2100 AC 02/15 (Seroquel) 224 Al Hydroxide/Mg 30 ML Q4-6 PRN PRN 02/15 2015 AC Hydroxide (Maalox Plus) Ibuprofen 400 MG Q6P PRN 02/15 2015 AC (Motrin) Nicotine 2 MG Q2 HRS NEEDED PRN 02/15 2015 AC (Nicotine) Quetiapine Fumarate 100 MG Q4 HRS NEEDED PRN 02/15 2015 AC (Seroquel) Olanzapine 10 MG Q2 HRS NEEDED PRN 02/16 2000 AC (ZyPREXA) Laboratory Tests 02/15/18 1659: Urine Opiates Screen < 100, Methadone Screen 41, Barbiturate Screen < 60, Ur Phencyclidine Scrn < 6.00, Amphetamines Screen 245, U Benzodiazepines Scrn < 85, Urine Cocaine Screen < 50, Urine Cannabis Screen 22.70, Urine Color YEL, Urine Clarity HAZY H, Urine pH 6.0, Ur Specific Enterprise >= 1.030, Urine Protein NEG, Urine Ketones NEG, Urine Nitrite NEG, Urine Bilirubin NEG, Urine Urobilinogen 0.2, Ur Leukocyte Esterase SMALL H, Ur Microscopic SEDIMENT EXAMINED, Urine RBC 3-5, Urine WBC 1-3 H, Ur Epithelial Cells MOD H, Urine Bacteria MOD H, Urine Mucus FEW, Urine Hemoglobin SMALL H, Urine Glucose NEG, Urine Test NEGATIVE 02/15/18 1619: Anion Gap 13, Estimated GFR > 60, BUN/Creatinine Ratio 16.3, Glucose 114 H, Calcium 10.0, Total Bilirubin 0.5, AST 18, ALT 33, Alkaline Phosphatase 61, Total Protein 7.5, Albumin 4.4, Globulin 3.1, Albumin/Globulin Ratio 1.4, CBC w Diff NO MAN DIFF REQ, RBC 4.18 L, MCV 94.9, MCH 32.4 H, MCHC 34.1, RDW 12.4, MPV 8.1, Gran % 54.6, Lymphocytes % 33.3, Monocytes % 7.2, Eosinophils % 4.3, Basophils % 0.6, Absolute Granulocytes 6.3, Absolute Lymphocytes 3.9 H, Absolute Monocytes 0.8 H, Absolute Eosinophils 0.5, Absolute Basophils 0.1, Carbamazepine < 3.0 L, Serum Alcohol < 10.0 Labs ordered old records reviewed patient calm and cooperative at this time. (Dong Robles) Departure Departure Time of Disposition: 2110 Condition: Stable Referrals: Josefa MANZO,Max Hernandez (PCP/Family) Departure Forms: Customer Survey General Discharge Information Psych Admission Note Psychiatric Admission: I have seen and evaluated [address]. I have also reviewed all the pertinent lab results and diagnostic results. DAV[address]RE[address] will be admitted to our inpatient Psychiatric unit for treatment and care. (Dong Robles) Departure Disposition: STILL A PATIENT Clinical Impression Primary Impression: Depression Psych Admission Note Psychiatric Admission: I have seen and evaluated [address]. I have also reviewed all the pertinent lab results and diagnostic results. DAV[address] will be admitted to our inpatient Psychiatric unit for treatment and care. (Mikel Shukla DO)
[2018-02-15 16:37] LABS: ABSOLUTE BASOPHIL COUNT 0.1 /CUMM (0.0-0.2); ABSOLUTE EOSINOPHIL COUNT 0.5 /CUMM (0.0-0.7); ABSOLUTE GRANULOCYTE CT 6.3 /CUMM (1.4-6.5); ABSOLUTE LYMPH COUNT 3.9 /CUMM (1.2-3.4); ABSOLUTE MONOCYTE COUNT 0.8 /CUMM (0.10-0.60); BASOPHIL % 0.6 % (0.0-2.0); EOSINOPHIL % 4.3 % (0-5); HEMATOCRIT 39.7 % (37-47); MEAN CORPUSCULAR HGB 32.4 PG (27.0-31.0); MEAN CORPUSCULAR HGB CONC 34.1 G/DL (33.0-37.0); MEAN CORPUSCULAR VOLUME 94.9 FL (81.0-99.0); MEAN PLATELET VOLUME 8.1 FL (7.4-10.4); PLATELET COUNT 353 /CUMM (130-400); RBC DISTRIBUTION WIDTH 12.4 % (11.5-14.5); RED BLOOD CELL CT 4.18 /CUMM (4.20-5.40); WHITE BLOOD CELL COUNT 11.6 /CUMM (4.8-10.8)
[2018-02-15 16:39] LABS: GRANULOCYTE % 54.6 % (42.2-75.2)
[2018-02-15] MEDS ORDERED: TRAZODONE HCL50 M1 PO (19:46)
[2018-02-15] MEDS ORDERED: MIRTAZAPINE15 M2 PO (19:47)
--- NOTE | 2018-02-15 19:48 | ED PSYCH CRISIS CONSULTATION ---
Crisis Consult Basic Assessment Date of Consult: 02/15/18 Insurance Authorization: Insurance #1: Insurance name: MEDICARE A Phone number: Policy number: [id number] Group number: Authorization number: ED Provider: Patient's ED Provider: Dong Robles Primary Care Physician: Patient's PCP: Max Rivero MD PCP's Current Psychiatrist: Care Chief Complaint: Psychiatric Related Complaint Patient's Quote: "Alot going on." Present Illness: The patient is a 42 year old single, female presenting to the ED with paranoia, delusions and suicidal ideations. The patient presents with depressed mood, tangential flight of ideas that are disorganized and paranoid in nature. The patient is currently in treatment at [facility] in their IOP program and was recently discharged from [facility] this week. The patient states " I need help," noting that she has been depressed and having thoughts to drive her car into a tree. She states that she was driving last night and revved up her engine, while looking at a particular tree, that she thought she could hit. She states that she did not attempt to drive into the tree, noting only one previous attempt when she was 17 years old. She states that her depression is an 8 out of 10, 10 being the most severe and that her anxiety is a 6 out of 10. She reports feeling helpless, hopeless, useless and worthless. She reports feeling paranoid, stating, " I'm in a lot of trouble, this is care home." When asked to elaborate she stated that the "triple air valve tester in [place] were giving her a warning to not make trouble in their town," noting that she never had contact with them. She stated that she wasn't sure she should speak to his service writer advisor, because there might be some connection with this evaluation and the police. 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 She denies any current drug or alcohol abuse and her toxicology and alcohol screen were negative. 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 She states that she has been homeless and living in her car, which is very stressful. She states that in addition to being homeless she is having financial difficulties and has not been able to see her children. She notes that [facility] has not allowed her to see her 3 children and that her two youngest are staying with their father. She reports that impulsively she went to her daughters gymnastic class to watch her and then knocked on her sons bedroom window to see him. She states that the Children's father said that this is her final warning and if she tries to contact them outside of [facility], that he will be getting a restraining order. She states that two other people currently have restraining orders against her. 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 She would like to ultimately get into rehab, however does feel like she needs to be back in the hospital at this point. Patient's Address: [address] [place] [address] Other Phone Number: Who Do You Live With? Mother Family/Informants [facility] clinician spoke with KAROLINA Mayers for collateral information. Allergies - Coded Allergies: haloperidol (From HALDOL) ("seizure like coma sleep" 11/07/17) Uncoded Allergies: DOG SHAMPOO (HIVES AND ITCHING ALL OVER 03/31/15) Current Medications - Scheduled Medications Lamotrigine (Lamictal) 25 MG TABLET 1 TAB PO DAILY mood stabilization #14 TAB Prescribed by Andres Cortés MD on 11/14/17 Mirtazapine 15 MG TABLET 1 TAB PO QPM MENTAL HEALTH #14 (Reported) Entered as Reported by Val Gaitan on 02/15/181946 Quetiapine Fumarate (Seroquel) 200 MG TABLET 1 TAB PO AT BEDTIME to clear thoughts #14 TAB Prescribed by Andres Cortés MD on 11/14/17 Last Taken: 02/14/18 Trazodone HCl 50 MG TABLET 1 TAB PO QPM SLEEP/MENTAL HEALTH #14 (Reported) Entered as Reported by Val Gaitan on 02/15/181945 Laboratory Results: Laboratory Tests 02/15/18 1659: Urine Opiates Screen < 100, Methadone Screen 41, Barbiturate Screen < 60, Ur Phencyclidine Scrn < 6.00, Amphetamines Screen 245, U Benzodiazepines Scrn < 85, Urine Cocaine Screen < 50, Urine Cannabis Screen 22.70, Urine Color YEL, Urine Clarity HAZY H, Urine pH 6.0, Ur Specific [place] >= 1.030, Urine Protein NEG, Urine Ketones NEG, Urine Nitrite NEG, Urine Bilirubin NEG, Urine Urobilinogen 0.2, Ur Leukocyte Esterase SMALL H, Ur Microscopic SEDIMENT EXAMINED, Urine RBC 3-5, Urine WBC 1-3 H, Ur Epithelial Cells MOD H, Urine Bacteria MOD H, Urine Mucus FEW, Urine Hemoglobin SMALL H, Urine Glucose NEG, Urine Test NEGATIVE 02/15/18 1619: Anion Gap 13, Estimated GFR > 60, BUN/Creatinine Ratio 16.3, Glucose 114 H, Calcium 10.0, Total Bilirubin 0.5, AST 18, ALT 33, Alkaline Phosphatase 61, Total Protein 7.5, Albumin 4.4, Globulin 3.1, Albumin/Globulin Ratio 1.4, CBC w Diff NO MAN DIFF REQ, RBC 4.18 L, MCV 94.9, MCH 32.4 H, MCHC 34.1, RDW 12.4, MPV 8.1, Gran % 54.6, Lymphocytes % 33.3, Monocytes % 7.2, Eosinophils % 4.3, Basophils % 0.6, Absolute Granulocytes 6.3, Absolute Lymphocytes 3.9 H, Absolute Monocytes 0.8 H, Absolute Eosinophils 0.5, Absolute Basophils 0.1, Carbamazepine Pending, Serum Alcohol < 10.0 Past History Past Medical History Neurological: migraine, AVM EENT: NONE Cardiovascular: NONE Respiratory: NONE Gastrointestinal: HYPOGLYCEMIA Hepatic: NONE Renal: NONE Musculoskeletal: NONE Psychiatric: anxiety, bipolar disease, depression, substance abuse Endocrine: Hypoglycemia Blood Disorders: NONE Cancer(s): NONE 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 Physical Limitations (Interventions): None identified. Psychiatric Treatment History Psych Treatment Psychiatric Treatment Yes Inpatient Treatment Yes Outpatient Treatment Yes Location of Treatment [facility], [facility], [facility] Reason for Treatment Bipolar Disorder and suicidal ideations. Dates of Treatment Current with [facility], [place] in 12/2017, [facility] 10/2017, [place] 01/2018 Response to Treatment Despite multiple hospitalizations the patient has not been able to maintain symptom stability. Diagnosis by History: Bipolar D/O Substance Use/Abuse History Drug Use/Abuse Substances Used/Abused Yes Substance Used/Abused Crack Cocaine (Marijuana and Klonopin) First Use Unclear Last Used Unlcear, however the patient denies recent use and toxicology screen - How much used/taken N/A How often N/A For how long N/A Route of use multiple Substance Abuse Treatment Substance Abuse Treatment Past Substance Abuse TX Yes Inpatient Treatment Yes Outpatient Treatment Yes Location of Treatment [facility] and [facility] Reason for Treatment Crack Cocaine, alcohol, Marijuana and Klonopin abuse. Dates of Treatment Multiple dates, current with [facility] & on wait list for [place]. Response to Treatment The patient has been able to stay clean and sober. Comments: N/A Current Mental Status Mental Status Orientation: Person, Place, Situation Affect: Anxious Speech: Pressured Neuro-vegetative: Helpless (Hopeless, useless and worthles) Appearance Appearance- Dress/Hygiene: The patient was sitting on the bed, in hospital attire neat clean and well kempt. Behaviors Thought Process: Disorganized, Flight of Ideas, Irrational Thought Content: Paranoid, She presents are paranoid about the Police Department in [place]. Memory: WNL Insight: Fair SI/HI Risk Assessment Past Suicidal Ideation/Attempts Yes Current Suicidal Ideation/Att Yes Past Homicidal Ideation/Att: No Current Homicidal Ideation/Attempts No Degree of Intent: Plan, She reports that she has been having thoughts to drive her car into a tree and found a particular tree last evening and revved her engine. She denies that she attempted to hit the tree. She reports that she tried to kill herself when she was 17 years old. Danger To: Self Gravely Disabled: Poor Impulse Control Risk Factors: high anxiety/distress, history of suicide atmpts, SA/MH hospitalized, substance abuse, poor impulse control Lethality Ratin PTSD Checklist PTSD Done? pt unable to participate (Secondary to symptoms) ED Management Sitter: Yes Restraints: No DSM5/PS Stressors/Medical Prob Diagnosis' (DSM 5, Stressors, Medical): F31.9 Unspecified Bipolar Disorder Medical: Migraines Stressors: Finances, housing and DCF involvement. Current GAF: 25 Comments: N/A Departure Disposition Psych Medical Clearance Date: 02/15/18 Medically Cleared at: 1814 Time Started: 1844 Time Ended: 1929 Psychiatrist Consulted: Dr. Roa Date Disposition Established: 02/15/18 Time Disposition Established: 1944 Plan for Disposition - Modality: Inpatient Psychiatry Facility: [facility] Contact: N/A Telephone: N/A Rationale for Disposition: The patient presents with depressed mood, anxiety, paranoia and suicidal ideations with a plan. The patients thought process is disorganized and tangential with flight of ideas, that are paranoid in nature. Case discussed with Dr. Roa and he finds the patient to be an acute risk to self and in need of a hopsitalizaiton at this time. Type of IP Admission: Voluntary Additional Instructions: N/A Referrals Josefa MANZO,Max Hernandez (PCP/Family)
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
[2018-02-16 08:54] VITALS: BP 122/64
[2018-02-16 12:29] VITALS: BP 110/67
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
--- NOTE | 2018-02-16 15:22 | CPS PROVIDER INIT ASMT PSYCH ---
Psychiatric Admission Accounting Manager Assistant Controller's Note Reviewed: Yes Patient Seen and Examined: Yes Identifying Information: 42 y/o SWF, undomiciled, released from outside psych hospital about 3 days prior to presentation, presents to with PI, delusions, and SI Chief Complaint: "Well I don't even know if you are using your own name" Reaction to Hospitalization: Believes she needs ongoing psychiatric care History of Present Illness Onset of Illness: Longstanding history of bipolar disorder complicated by substance use Circumstances Leading to Admission: -dc/d from [facility] earlier this week on LTG 25 mg daily, mirtazapine 15 mg nightly, and trazodone nightly - Presented to ED reporting SI with plans to drive into tree, feeling severely depressed, hopeless -Espoused paranoid delusions, including that "a former acquaintance Jaskaran probably got killed by Albanians; thoughts that others were trying to harm her or family members; feelings that the [employer] were involved in her financial troubles -denies current drug use, says "I had one glass of wine", and utox was negative -homeless -[facility] Problem(s) Justifying Need for Admission: -Grave disability due to psychotic illness -Suicidal ideation Other HPI: please see DEVELOPMENT COORDINATOR note Past Psychiatric History Past Diagnosis(es)- if any: Bipolar d/o with psychotic features. Cannabis use disorder. 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 Past Precipitating Factors- if any: Tx non-compliance Substance use - Include inpatient and outpatient treatment Treatment History: OPT at [facility]. Reports ~14 hospitalizations, including , [facility], [facility], [facility]. History of Suicide Attempts or Gestures Pill overdose at age 17 Substance Abuse History: History of: Cigs 1 PPD Alcohol approx 1 glass/day Cannabis 4 bowls/day though denies current/recent use Allergies: Coded Allergies: haloperidol (From HALDOL) ("seizure like coma sleep" 11/07/17) Uncoded Allergies: DOG SHAMPOO (HIVES AND ITCHING ALL OVER 03/31/15) Home Med List: From [facility]: LTG 25 mg daily Mirtazapine 15 mg nightly Trazodone 50 mg nightly - Include any medical condition(s) that may - impact the patient's recovery/remission Past History Medical History Neurological: migraine, AVM EENT: NONE Cardiovascular: NONE Respiratory: NONE Gastrointestinal: NONE Hepatic: NONE Renal: NONE Musculoskeletal: NONE Psychiatric: anxiety, bipolar disease, depression, substance abuse Endocrine: Hypoglycemia Blood Disorders: NONE Cancer(s): NONE DEVELOPER 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 He 5 years ago. Cousin: ?dx. Substance Use: EtOh on mother's side Suicides: ? 1 MGGF Social History Living Situation: Homeless Significant Relationships (family/friends): Limited Education: BA in education Vocation/Occupation: Unemployed Legal: No known current legal Healthly Behaviors Screening Tobacco Screening Tobacco Use from ED Docu: Current Daily Use Daily Tobacco Use Amount/Type: => 5 Cigarettes daily - If tobacco counseling indicated - the following topics are required. - #1 Recognizing dangerous situations. - #2 Coping Skills. - #3 Basic information about quitting. Status of Tobacco Cessation Counseling: #1, #2 AND #3 Completed Cessation Med Status Nicotine Gum Ordered Alcohol Screening - ETOH screen POS if BAL >=80 or Audit-C>= M4/F3 Audit-C Score from Diag Assess: 2 Blood Alcohol Level: Laboratory Tests 02/15 1619 Toxicology Serum Alcohol (<10 MG/DL) < 10.0 Alcohol Use Screening Results: Neg per Audit C &/or BAL - If ETOH counseling indicated - the following topics are required. - #1 Express concern about the patient's - drinking at unhealthy levels, include informing - of national norms for moderate drinking: - men <= 14 drinks/week, max 4 drinks/occasion - women <= 7 drinks/week, max 3 drinks/occasion - #2 Providing feedback, including linking alcohol to - negative physical effects (liver injury, hypertension) - negative emotional effects (relationship problems and - depression) - negative occupational consequences (reduced work - performance) - #3 Advising the patient to abstain from alcohol or - to drink below national norms for moderate drinking - (as listed above). Status of ETOH Use Counseling: N/A B/C NO ETOH Use Metabolic Screening - Screen if on a Neuroleptic Medication - Metabolic screening should include: - Blood Pressure, BMI, Glucose or Hgb A1c, & a - Lipid profile from within the past 365 days. Metabolic Screening () Patient on a neuroleptic(s) . Enter below results for Hemoglobin A1C, and lipid panel if obtained during the last 365 days. BMI: 34.100 Blood Pressure: 110/67 Laboratory Results From [facility] (If applicable): A1c 5.7 (April 2017) Lipid panel (Sep 2017) Tri T Chol: 273 LDL 188 HDL 44 Exam and Plan Mental Status Examination Ambulation Status: stable Appearance: disheveled Attitude towards examiner: pleasant and cooperative Psychomotor activity: slowed Behavior: wnl Quality of speech: wnl Affect: anxious and scared Mood: "depressed" Suicidal Ideation: passive SI without intent or plan Homicidal Ideation: denies Hallucinations: denies Paranoid/Delusional Material: ongoing paranoid ideation and delusions Difficulties with thought organization: Yes Insight: limited Judgment: poor Orientation: To person, place, and month Cognition: grossly intact Memory Function: adequate immediate, short, and intermediate Estimate of intellectual functioning: average Assets/Strengths Patient Identified Assets/Strengths: Reports loving her children Impression/Plan Impression and Plan: Decompensation of bipolar illness. As best as can be determined, she was not discharged on medications that appropriately treat bipolar disorder, which is the likely cause of the decompenstion. - Include all active medical diagnosis that require tx DSM 5 Diagnosis(es): Bipolar I d/o, current episode depressed versus mixed, with psychotic features History of cannabis use disorder Hx of brainstem AVM - Initial Tx Plan for Active Psych & Medical Conditions Treatment Plan: -admit CPS 15 min checks -start seroquel nightly and PRN agitation -start tegretol 200 mg BID (admit level was 0) -additional collateral -identify outpatient plan - Factors that would help patient function - in a less restrictive setting. Factors: Not psychotic, not suicidal
[2018-02-16 15:55] VITALS: BP 137/78
--- NOTE | 2018-02-16 18:35 | History & Physical ---
General Information and [facility] MD Statement: I have seen and personally examined [address] and documented this H&P. The patient is a 42 year old F who presented with a patient stated chief complaint of stress, SI and delusions. Source of Information: patient Exam Limitations: no limitations History of Present Illness: 42 y/o F with pmh sig for anxiety, bipolar disease, depression, substance abuse, migraine headaches, hypoglycemia admitted to Inpatient Psychiatry with delusions , suicidal ideation and feeling under a lot of stress. Patient claims that she is homeless. She is living in her car. She is worried about that she gave her car keys to some unknown person at [facility]. She follows up at [facility] as she reports. As noted in the psych history, patient had some suicide ideation and wanted to hit her car with a tree. She currently denies any pain. She does smoke 1 pack of cigarettes per day. She has a mother and a sister but she does not speak with her sister. Allergies/Medications Allergies: Coded Allergies: haloperidol (From HALDOL) ("seizure like coma sleep" 11/07/17) Uncoded Allergies: DOG SHAMPOO (HIVES AND ITCHING ALL OVER 03/31/15) Home Med list Lamotrigine (Lamictal) 25 MG TABLET 1 TAB PO DAILY mood stabilization Mirtazapine 15 MG TABLET 1 TAB PO QPM MENTAL HEALTH (Reported) Quetiapine Fumarate (Seroquel) 200 MG TABLET 1 TAB PO AT BEDTIME to clear thoughts Trazodone HCl 50 MG TABLET 1 TAB PO QPM SLEEP/MENTAL HEALTH (Reported) Past History Travel History Traveled to [place] past 21 day No Medical History Neurological: migraine, AVM EENT: NONE Cardiovascular: NONE Respiratory: NONE Gastrointestinal: NONE Hepatic: NONE Renal: NONE Musculoskeletal: NONE Psychiatric: anxiety, bipolar disease, depression, substance abuse Endocrine: Hypoglycemia Blood Disorders: NONE Cancer(s): NONE HEAD 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 . Psychosocial History Where do you live? Other Services at Home: None Primary Language: Cambodian ETOH Use: occasional use Illicit Drug Use: cocaine, marijuana, benzodiazepines Functional Ability ADLs Independent: dressing, eating, toileting, bathing. 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 EENTM: Reports: see HPI. Cardiovascular: Reports: see HPI. Respiratory: Reports: see HPI. GI: Reports: see HPI. Musculoskeletal: Reports: see HPI. Neurological/Psychological: Reports: see HPI. Exam & Diagnostic Data Last 24 Hrs of Vital Signs/I&O Vital Signs Date Time Temp Pulse Resp B/P B/P Pulse O2 O2 Flow FiO2 Mean Ox Delivery Rate 02/16 1555 92 137/78 02/16 1229 88 110/67 02/16 0854 98.3 100 122/64 02/15 2103 97.3 103 18 116/72 97 Room Air 02/15 1913 102 18 120/68 98 Room Air Intake & Output 02/16 1600 02/16 0800 02/16 0000 Intake Total 0 Output Total Balance 0 Intake, Oral 0 Patient 205 lb Weight Weight Reported by Patient Measurement Method Physical Exam General Appearance Alert, Oriented X3, Cooperative, No Acute Distress Skin No Rashes HEENT PERRLA Neck Supple Cardiovascular Regular Rate, Normal S1, Normal S2 Lungs Clear to Auscultation Abdomen Normal Bowel Sounds, Soft, No Tenderness Neurological Cranial Nerves II through XII: Intact Extremities No Edema Last 24 Hrs of Labs/Parish: Laboratory Tests 02/15 02/15 1659 1619 Chemistry Sodium (137 - 145 mmol/L) 142 Potassium (3.5 - 5.1 mmol/L) 4.0 Chloride (98 - 107 mmol/L) 105 Carbon Dioxide (22 - 30 mmol/L) 24 Anion Gap (5 - 16) 13 BUN (7 - 17 mg/dL) 13 Creatinine (0.5 - 1.0 mg/dL) 0.8 Estimated GFR (>60 ml/min) > 60 BUN/Creatinine Ratio (7 - 25 %) 16.3 Glucose (65 - 99 mg/dL) 114 H Calcium (8.4 - 10.2 mg/dL) 10.0 Total Bilirubin (0.2 - 1.3 mg/dL) 0.5 AST (14 - 36 U/L) 18 ALT (9 - 52 U/L) 33 Alkaline Phosphatase (<127 U/L) 61 Total Protein (6.3 - 8.2 g/dL) 7.5 Albumin (3.5 - 5.0 g/dL) 4.4 Globulin (1.9 - 4.2 gm/dL) 3.1 Albumin/Globulin Ratio (1.1 - 2.2 %) 1.4 Hematology CBC w Diff NO MAN DIFF REQ WBC (4.8 - 10.8 /CUMM) 11.6 H RBC (4.20 - 5.40 /CUMM) 4.18 L Hgb (12.0 - 16.0 G/DL) 13.5 Hct (37 - 47 %) 39.7 MCV (81.0 - 99.0 FL) 94.9 MCH (27.0 - 31.0 PG) 32.4 H MCHC (33.0 - 37.0 G/DL) 34.1 RDW (11.5 - 14.5 %) 12.4 Plt Count (130 - 400 /CUMM) 353 MPV (7.4 - 10.4 FL) 8.1 Gran % (42.2 - 75.2 %) 54.6 Lymphocytes % (20.5 - 51.1 %) 33.3 Monocytes % (1.7 - 9.3 %) 7.2 Eosinophils % (0 - 5 %) 4.3 Basophils % (0.0 - 2.0 %) 0.6 Absolute Granulocytes (1.4 - 6.5 /CUMM) 6.3 Absolute Lymphocytes (1.2 - 3.4 /CUMM) 3.9 H Absolute Monocytes (0.10 - 0.60 /CUMM) 0.8 H Absolute Eosinophils (0.0 - 0.7 /CUMM) 0.5 Absolute Basophils (0.0 - 0.2 /CUMM) 0.1 Toxicology Urine Opiates Screen (>2000 NG/ML) < 100 Methadone Screen (>300 NG/ML) 41 Barbiturate Screen (>200 NG/ML) < 60 Carbamazepine (4.0 - 12.0 ug/mL) < 3.0 L Ur Phencyclidine Scrn (>25 NG/ML) < 6.00 Amphetamines Screen (>1000 NG/ML) 245 U Benzodiazepines Scrn (>200 NG/ML) < 85 Urine Cocaine Screen (>300 NG/ML) < 50 Urine Cannabis Screen (>50 NG/ML) 22.70 Serum Alcohol (<10 MG/DL) < 10.0 Urines Urine Color (YEL,AMB,STR) YEL Urine Clarity (CLEAR) HAZY H Urine pH (5.0 - 8.0) 6.0 Ur Specific [place] (1.001 - 1.035) >= 1.030 Urine Protein (NEG,<30 MG/DL) NEG Urine Ketones (NEG) NEG Urine Nitrite (NEG) NEG Urine Bilirubin (NEG) NEG Urine Urobilinogen (0.1 - 1.0 EU/dl) 0.2 Ur Leukocyte Esterase (NEG) SMALL H Ur Microscopic SEDIMENT EXAMINED Urine RBC (0 - 5 /HPF) 3-5 Urine WBC (0 - 2 /HPF) 1-3 H Ur Epithelial Cells (NONE,FEW) MOD H Urine Bacteria (NEG/NONE) MOD H Urine Mucus (FEW,NONE) FEW Urine Hemoglobin (NEG) SMALL H Urine Glucose (N MG/DL) NEG Urine Test NEGATIVE Assessment/Plan Assessment: 42 y/o F with pmh sig for anxiety, bipolar disease, depression, substance abuse, migraine headaches, hypoglycemia is admitted to Inpatient Psychiatry with suicidal ideation, delusions and stress. Psych management will be per psychiatry. Noted some leukocytosis. Urinalysis clear. Will repeat CBC to make sure that it resolves. Patient has nicotine patch ordered. The rest of the labs look okay. As Ranked By This Provider Problem List: 1. Anxiety 2. Depression 3. Migraine 4. Suicidal ideation Miscellaneous Miscellaneous Documentation Attending Case Discussed With: Chris Toscano M.D. Primary Care Physician: Josefa MANZO,Max Hernandez Patient sees these Specialists Psychiatrist Level of Patient Care: DESTINY Ramos Attending MD Review Statement Attending Statement Attending MD Statement: examined this patient, discuss w/resident/PA/NET FRONT END DEVELOPER, agreed w/resident/PA/NET FRONT END DEVELOPER, reviewed EMR data (avail), discussed with nursing, amended to note
[2018-02-16 20:14] VITALS: BP 121/65
[2018-02-17 08:04] LABS: ABSOLUTE BASOPHIL COUNT 0 /CUMM (0.0-0.2); ABSOLUTE EOSINOPHIL COUNT 0.4 /CUMM (0.0-0.7); ABSOLUTE GRANULOCYTE CT 3.2 /CUMM (1.4-6.5); ABSOLUTE LYMPH COUNT 3.3 /CUMM (1.2-3.4); ABSOLUTE MONOCYTE COUNT 0.6 /CUMM (0.10-0.60); BASOPHIL % 0.6 % (0.0-2.0); EOSINOPHIL % 5.7 % (0-5); GRANULOCYTE % 42.5 % (42.2-75.2); HEMATOCRIT 36.9 % (37-47); MEAN CORPUSCULAR HGB 32.4 PG (27.0-31.0); MEAN CORPUSCULAR HGB CONC 34.1 G/DL (33.0-37.0); MEAN CORPUSCULAR VOLUME 95.2 FL (81.0-99.0); MEAN PLATELET VOLUME 8.6 FL (7.4-10.4); PLATELET COUNT 295 /CUMM (130-400); RED BLOOD CELL CT 3.87 /CUMM (4.20-5.40); WHITE BLOOD CELL COUNT 7.6 /CUMM (4.8-10.8)
--- NOTE | 2018-02-17 10:20 | CP SOUTH PROGRESS NOTE PSYCH ---
Psych (Inpt) Progress Note Progress Note Include the following elements, when applicable: Involvement in the active treatment of the patient with behavioral observations of the patient and the patient's response to the treatment. Review of the ongoing treatment process in the context of the treatment plan. Indication of how multi-disciplinary staff members are carrying out the treatment plan. Plans for future interventions and recommendations for revision of the treatment plan. Liaison with other physicians/providers. Progress Note: Chart reviewed. Progress discussed with nursing staff. Slept well last night and in good behavioral control. Interviewed patient this morning. Patient reports feeling "a bit better", mood "a little down", denies SI. Markedly less delusional or pressured. Denies current complaints. Vitals and labs reviewed. Findings are: vitals wnl. CBC resulted today largely wnl. Mental status exam: Pleasant, cooperative, limited eye contact. No abn movements or slowing. Speech quiet, non-pressured. Mood "a little down". Affect constricted, non-labile. TP impoverished. TC without SI/HI. No delusions noted during interview. Denies percept disturbance. Cognition alert oriented to person , place, date. I/J limited. Assessment and plan: Bipolar depression versus mixed state, improving psychosis. Continue to uptitrate nightly seroquel to 300 mg tonight. Continue tegretol 200 mg BID.
[2018-02-17 13:09] VITALS: BP 135/76
[2018-02-17 16:19] VITALS: BP 123/82
[2018-02-17 19:52] VITALS: BP 129/87
[2018-02-18 08:25] VITALS: BP 109/82
--- NOTE | 2018-02-18 08:40 | CP SOUTH PROGRESS NOTE PSYCH ---
Psych (Inpt) Progress Note Progress Note Dr. Zee notes for the weekend were reviewed. In the treatment team meeting this morning, patient's progress was reviewed, and the treatment and aftercare plans were reviewed and updated. The treatment team included: RN, ROAD GANG SUPERVISOR, group and activity therapy staff, and psychiatrist. the course of the day as she says this is helpful for her mood and anxiety. Denies sedation. Reports unusual feeling in her chest. Denies SI/HI. No AVH. Vitals and labs reviewed. Findings are: wnl. No new labs. Mental status exam: Well groomed AAF, not sedated appearing today, no abnormal movements. Fair eye contact. Speech minimally slurred otherwise wnl. Mood "getting better". Affect mildly constricted, non-labile. TP logical, TC wnl. Denies SI/HI. Denies perceptual disturbances. Cognition grossly intact. I/J fair. Assessment and plan: Mood continues to improve as does sedation. Will uptitrate seroquel to 100 mg BID. Also check EKG. I have very low suspicion of a cardiac event as the cause of her chest discomfort. Continue remainder of current management as per primary team.
--- NOTE | 2018-02-18 08:40 | CP SOUTH PROGRESS NOTE PSYCH ---
Psych (Inpt) Progress Note Progress Note Dr. Roa's notes from the weekend were reviewed. the patient's progress, treatment plan, and aftercare plans were discussed and the treatment team meeting this morning. Vital Signs Date Time Temp Pulse Resp B/P B/P Pulse O2 O2 Flow FiO2 02/18 0825 96.3 94 109/82 02/18 1952 98.1 86 129/87 02/17 1619 97 123/82 Mental status exam: The patient was pleasant and cooperative. She was fidgety, restless, and showed increased psychomotor activity. She was talkative but not pressured, and her affect was anxious and labile. She reported that her mood has been depressed, and she reported that she has been homeless since October 2017. She reported that she was anxious/afraid about the police being after her, and the mob too. She seemed to have paranoid delusions, she seemed to have difficulty answering the questions about hallucinations, she insisted that they are thoughts not hallucinations. she alert oriented to person, place, date. She said she slept well last night . she was in good behavioral control. When asked about thoughts of suicide she answered "not relaly" Assessment: 42-year-old patient discharged from [facility] earlier this week on Presented to ED reporting SI with plans to [place], feeling severely depressed, hopeless -Espoused paranoid delusions, including that "a former acquaintance Jaskaran probably got killed by Albanians; thoughts that others were trying to harm her or family members; feelings that the Grateful were involved in her financial troubles , -denies current drug use, says "I had one glass of wine", and utox was negative, -homeless, -[facility]habBipolar depression versus mixed state, improving psychosis. Treatment plan update: Start Olanzapine 5 mg at bedtime Reduce seroquel to 200 mg tonight. Continue tegretol 200 mg BID.
[2018-02-18 12:02] VITALS: BP 113/68
[2018-02-18 15:55] VITALS: BP 97/63
--- NOTE | 2018-02-18 17:07 | SOCIAL WORKER PROG NOTE PSYCH ---
Social Work Progress Note Progress Note COMPLETED [facility] ONLINE REVIEW FOR CONTINUED STAY, CHECK WEB FOR NEXT REVEIW DATE.
--- NOTE | 2018-02-18 17:11 | SOCIAL WORKER PROG NOTE PSYCH ---
See Addendum Social Work Progress Note Progress Note This writer editor met with patient. Patient reported interpersonal stressors which have resulted in "being kicked out" of shelters. Patient acknowledged the need for a higher level of care regarding her substance use and stated that she is currently on the wait list. Patient stated that she would call today to inquire about current wait list status. Patient stated that she has been living in her car. She denied SI today, stating that she had SI yesterday. She denied HI/ AVH. She reported primarily struggling with relationships. She was agreeable to a family meeting with Manisha, the [facility] fruit worker, or Desi Garay, her [facility] case management social worker. She was also agreeable to this writer editor contacting her mother and her daughter to invite to a family meeting. Patient was agreeable to a [facility] referral. This writer editor spoke with Riana ( unit receptionist) who stated that the patient missed her CAN assessment today. She also informed this writer editor that the patient is mandated to treatment by [facility].
[2018-02-18 20:04] VITALS: BP 139/76
[2018-02-19 08:17] VITALS: BP 134/97
--- NOTE | 2018-02-19 08:26 | CP SOUTH PROGRESS NOTE PSYCH ---
Psych (Inpt) Progress Note Progress Note The patient's progress, treatment plan, and aftercare plans were discussed and the treatment team meeting this morning. Vital Signs Date Time Temp Pulse B/P 02/19 0817 97.8 99 134/97 02/19 2004 98.5 99 139/76 Mental Status Exam: The patient was was fidgety and restless with increased psychomotor activity. She was talkative but not pressured. She was not tearful during the interview. She seemed to have a reasonable range of affect/ was not labile today. She reported that her mood has been depressed and "obsessed with ex-boyfriend." She denied thoughts of suicide today. She seemed to have paranoid delusions but less paranoid today (previously paranoid about the police, Arturo penn, of the the family of her ex-boyfriend). It is not clear whether she experiences hallucinations or not (she insisted that they are thoughts not hallucinations). She alert oriented to person, place, date. She said she slept well last night. She was in good behavioral control. Assessment: Tawanda is a 42-year-old White female who was admitted to [facility] very soon after being [facility] She was admitted due to SI with plans to drive into [employer], feeling severely depressed, hopeless, paranoid delusions (former acquaintance Jaskaran probably got killed by Albanians; thoughts that others were trying to harm her or family members; feelings that the Grate[employer] were involved in her financial troubles ) Tawanda has been homeless since October 2017. She said she would like to go to substance use rehab because "IOPs did not work for me". Likely Diagnoses: Bipolar I with psychosis vs. other psychostic disorders. Treatment Plan update: Continue Olanzapine 5 mg at bedtime Reduce seroquel to 150 mg tonight. Continue tegretol 200 mg BID. Start Sertraline 50 mg daily for obsessive thinking about ex-boyfriend
[2018-02-19 12:21] VITALS: BP 131/79
[2018-02-19 15:54] VITALS: BP 118/68
[2018-02-19 15:59] VITALS: BP 135/78
--- NOTE | 2018-02-19 18:11 | SOCIAL WORKER PROG NOTE PSYCH ---
Social Work Progress Note Progress Note This automobile service writer met with patient. Family meeting was discussed and she appeared to be looking forward to the meeting tomorrow. Patient described her mood as "it's ok" and denied SI/HI/AH/VH. Patient stated that she would call [facility] today to inquire about her status on the wait list and confirm if she has completed a screening. Patient signed an RODRI for D[facility] and would like this automobile service writer to contact her worker ( Tracie Landin, GENERATION ENGINEER, ). A vm was left for Tracie with call back number. Yudelka Mukherjee from [facility] met with the patient on the unit. This automobile service writer attended part of this meeting and patient was agreeable to this automobile service writer informing Yudelka of the discharge plans when they become available. Yudelka informed this automobile service writer separately that patient has been placed in several programs, however , discharged due to behavior.
--- NOTE | 2018-02-19 18:37 | SOCIAL WORKER PROG NOTE PSYCH ---
Social Work Progress Note Progress Note This customs entry writer faxed clinical to [facility]. LELE spoke with Laureen at [facility] who stated that they do not typically accept the patient's insurance, but sometimes accomodations can be made and she suggested that this customs entry writer make the referral. This customs entry writer attempted to reach [facility] in [place] (but was unsuccessful) to inquire about whether they accept the patient's insurance.
[2018-02-19 20:12] VITALS: BP 133/72
--- NOTE | 2018-02-20 08:25 | CP SOUTH PROGRESS NOTE PSYCH ---
Psych (Inpt) Progress Note Progress Note The patient's progress, treatment plan, and aftercare plans were discussed and the treatment team meeting this morning. The treatment team included nursing staff, social work staff, group/milieu and art therapy staff, and psychiatrist. Vital Signs: Blood pressure: 133/93 mmHg, pulse 88 bpm, temperature 98.7F Mental Status Examination: The patient was alert & oriented to time, person, place, and situation. She said she slept well last night (may be too much). She was in good behavioral control. The patient complained of feeling tired butat the same timewas fidgety/ restless with increased psychomotor activity. She was talkativebut not pressured. She was not tearful & seemed to have a reasonable range of affect. She reported that her mood is still depressed. She reported that she feels that she is not as "obsessed" with ex-boyfriend. She denied thoughts of suicide. She did not bring up any paranoid delusions today (upon arrival to the hospital she was paranoid about the police, Arturo fili, the family of her ex- boyfriend). She denied hallucinations. She was coherent with no significant thought disorder. She seems to have better attention and concentration and better ability for information processing. There were no deficits in her short-term memory. Assessment: The patient is a 42-year-old White female who was admitted to [facility] due to SI with plans to drive into [place]. She reported feeling severely depressed, hopeless , and had paranoid delusions (former acquaintance Jaskaran probably got killed by Albanians; thoughts that others were trying to harm her or family members; feelings that the Grate[employer] were involved in her financial troubles). Tawanda has been homeless since October 2017. She said she would like to go to substance use rehab because "IOPs did not work for me". Likely Diagnoses: Bipolar I with psychosis vs. other psychostic disorders. Treatment Plan update: Because of the patient's complaints about tiredness and sleeping too much, the following changes will be made: Continue Olanzapine 5 mg at bedtime Reduce seroquel to 50 mg QHS Reduce tegretol to 100 mg BID. Continue Sertraline 50 mg daily for obsessive thinking
[2018-02-20 08:26] VITALS: BP 133/93
[2018-02-20 08:40] VITALS: BP 133/93
[2018-02-20 12:36] VITALS: BP 135/88
--- NOTE | 2018-02-20 15:50 | SOCIAL WORKER PROG NOTE PSYCH ---
Social Work Progress Note Progress Note This data analyst report writer spoke with Tracie Mcnulty, social media marketing manager with [facility] who stated that the case has been closed. She stated that there may be an open case with Family Relations through [facility]. Tracie stated that the patient is not mandated to treatment through [facility]. Dr. Hill, this data analyst report writer and patient met with patient's mother, Wendy, her daughter, Alexa (who attended by phone, ), Manisha and Virgie ([facility] crisis workers) and Desi (patient's [facility] case assembler). Treatment plans were discussed and meeting attendees were informed that the patient continues to follow up with [facility] where she is on a waiting list. Patient has also agreed to calling [facility] this afternoon. Manisha stated that she would explore the [facility] respite program as options and this data analyst report writer will also explore the Crisis and Respite through [facility] ([place] and [place] locations). This data analyst report writer informed meeting attendees of the information learned by Tracie Mcnulty at [facility]. Patient will also continue to work with Yudelka at [facility]. All were agreeable to the patient entering inpatient rehab. Patient's mother expressed interest in exploring conservatorship. Patient was provided with the [facility] phone number following this meeting.
[2018-02-20 16:01] VITALS: BP 129/79
--- NOTE | 2018-02-20 17:37 | SOCIAL WORKER PROG NOTE PSYCH ---
Social Work Progress Note Progress Note The services requested require additional review. You will be contacted regarding the status of this request if further information is needed. An authorization decision will be made within the required timeframes and details of that decision may be found under the member's authorization history. Member Name Member ID Member Subscriber Name Subscriber ID DAVID Anna YENIFER [id number] [address] [id number] Pended Authorization # Client Authorization # Type of Request [id number] CONCURRENT Date of Admission/ Start of Services Requested From Submission Date 02/15/2018 02/20/2018 02/20/2018
[2018-02-20 20:00] VITALS: BP 137/84
[2018-02-21 08:26] VITALS: BP 129/88
--- NOTE | 2018-02-21 10:53 | CP SOUTH PROGRESS NOTE PSYCH ---
Psych (Inpt) Progress Note Progress Note The patient's progress, treatment plan, and aftercare plans were discussed and updated in the treatment team meeting this morning. The treatment team included : RN, KAROLINA, Group/milieu and art therapy staff, and psychiatrist. Vital Signs: Blood pressure: 129/88 mmHg, pulse: 84 bpm, temperature: 98.0F Mental Status Examination: The patient was alert & oriented to time, place, and person. She said she is still feeling tired although she slept well last night. She was in good behavioral control. She was not fidgety or restless. She was not talkative, not tearful & seemed to have a reasonable range of affect. She reported that her mood is still depressed. She did not bring up her ex-boyfriend. She denied thoughts of suicide. She did not bring up any paranoid delusions today. She denied hallucinations. She was coherent/no significant thought disorder. She seems to have better attention and concentration and better ability for information processing. There were no deficits in her short-term memory. Assessment: The patient is a 42-year-old single White female who was admitted to the inpatient psychiatric unit at [facility] on 02/15/2018 due to SI with plans to drive into [employer]. On arrival to the emergency room, she had paranoid delusions (former acquaintance Jaskaran probably got killed by Albanians; thoughts that others were trying to harm her or family members; feelings that the Grate[employer] were involved in her financial troubles). The patient has been homeless since October 2017. The patient is currently awaiting placement in a rehabilitation facility. Likely Diagnoses: Bipolar I with psychosis vs. other psychotic disorders. Treatment Plan update: Starting tomorrow 02/22/2018, reduce Tegretol to 100 mg only once daily at bedtime. continue Seroquel 50 mg QHS Continue Sertraline 50 mg daily Continue Olanzapine 5 mg at bedtime D/C PRN Ativan
[2018-02-21 12:02] VITALS: BP 121/78
[2018-02-21 16:06] VITALS: BP 114/76
--- NOTE | 2018-02-21 16:37 | SOCIAL WORKER PROG NOTE PSYCH ---
Social Work Progress Note Progress Note This publicity writer met with patient. She described her mood as "tired," which she attributes to her medication. Patient denied SI today. Patient and this publicity writer reviewed discharge plans, regarding inpatient programs. She stated that she would call [facility] and [facility] today. She was also interested in exploring [facility], a rehab located in [place]. Patient will call them to discuss their program prior to making a referral. Patient called [facility] and was directed to Theresa at ext. [phone] to determine if they currently have an open case and confirm whether treatment is mandated, as patient is unsure. This publicity writer received call from Manisha at [facility] who stated that the [facility] respite bed does not have any available beds at this time. This publicity writer and patient left a vm for Theresa at [facility] ([phone], ext. [phone]). A call back was requested.
[2018-02-21 20:15] VITALS: BP 119/83
[2018-02-22 07:46] VITALS: BP 126/79
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
--- NOTE | 2018-02-22 09:46 | SOCIAL WORKER PROG NOTE PSYCH ---
Social Work Progress Note Progress Note Met with Tawanda to complete [facility] application (some questions). She reported she was using crack cocaine - "few times per month" for past year uncertain of amount last use 12/15/17. Cannibis use- 4-5 bowls daily x 3yrs, Alcohol - 9-15 drinks (wine) per week past year. Sedative us- (not prescribed) - Xanex 3mg daily, Klonopin 6mg daily - 2x per week or more. Tawanda stated she was unable to remember her specific use. Faxed clinical to [facility] 02/22 at 9:47am - (need PPD placement/results Faxed). [facility] - [address] [place] , Fax . Faxed [facility] clinical on 02/22 at 9:58AM - included referral as well. (Need PPD results faxed)
[2018-02-22 12:14] VITALS: BP 121/77
--- NOTE | 2018-02-22 12:45 | SOCIAL WORKER PROG NOTE PSYCH ---
Social Work Progress Note Progress Note The services requested require additional review. You will be contacted regarding the status of this request if further information is needed. An authorization decision will be made within the required timeframes and details of that decision may be found under the member's authorization history. Member Name Member ID Member Subscriber Name Subscriber ID DAVID STRE[address] [id number] 1975 DAV[address] YENIFER [id number] Pended Authorization # Client Authorization # Type of Request [id number] CONCURRENT Date of Admission/ Start of Services Requested From Submission Date 02/15/2018 02/23/2018 02/22/2018 Level of Service Type of Service Level of Care Type of Care INPATIENT/HLOC Mental Health Inpatient Inpatient [facility] - Inpatient Hospital Reason Code P77 Provider Name & Address Provider ID Provider Alternate ID NPI # for Authorization ONEL DURBIN [id number] N/A [address] [facility] [id number]
[2018-02-22 16:08] VITALS: BP 114/80
--- NOTE | 2018-02-22 17:41 | SOCIAL WORKER PROG NOTE PSYCH ---
Social Work Progress Note Progress Note This radio script writer was informed by [facility] that they would not accept Tawanda into their program as they felt that she needed more of a focus on mental health treatment than what they can offer. This radio script writer was informed by Ajith at [facility] that the [facility] respite does not have any available beds at this time. They agreed to inform this radio script writer if a bed became available. This radio script writer met with patient. She denied SI/HI/AH/VH. She appeared disorganized at times during the conversation. Patient was informed of the information learned about [facility] and [facility]. While disappointed, patient discussed plans to continue to contact [facility] and [facility]. This radio script writer and patient called Theresa at [facility] ([phone], ext. [phone]) and left a vm with this radio script writer's call back number. Upon listening to this radio script writer leave the call back number for Theresa ([phone]) patient briefly commented on "[phone]" and "911" and that 911 is an emergency number.
[2018-02-22 20:01] VITALS: BP 128/78
[2018-02-23 07:52] VITALS: BP 104/67
[2018-02-23 12:06] VITALS: BP 95/71
--- NOTE | 2018-02-23 12:07 | CP SOUTH PROGRESS NOTE PSYCH ---
Psych (Inpt) Progress Note Progress Note Include the following elements, when applicable: Involvement in the active treatment of the patient with behavioral observations of the patient and the patient's response to the treatment. Review of the ongoing treatment process in the context of the treatment plan. Indication of how multi-disciplinary staff members are carrying out the treatment plan. Plans for future interventions and recommendations for revision of the treatment plan. Liaison with other physicians/providers. Progress Note: Tawanda had no acute complaints, stated that she had no issues with the new med. we discussed increasing it to target her residual paranoia and manic sx and she agreed. She was looking forward to seeing her daughter. spoke about decisions to try and see her children despite not being allowed to contact them, and we discussed how in the shorter term it's better for her to abide by the rules and get herself together prior to trying to reach out to her underage children when she is not supposed to. She agreed. She stated that her sleep and appetite were good. MSE: pleasant woman, overweight, well groomed and with fair hygiene. Good eye contact. She is anxious ,mildly pressured. She is not actively paranoid and did not make odd statements, however it appears that she has in the last few days. She is not suicidal or homicidal, nor is she internally preoccupied. Her mood was anxious and affect was full and reactive. Insight and judgment both fair. A: 42 year old woman w/ plan to drive her car into something to kill self prior to admission, presented paranoid and disorganized. She is improving clinically however continues to be pressured anxious and recent paranoid statements. She had recent med changes and is adjusting well. Plan: increase prolixin to 5mg twice daily; denied rash, stiffness or any other issues.
[2018-02-23 15:50] VITALS: BP 108/85
[2018-02-23 20:03] VITALS: BP 139/83
[2018-02-24 08:21] VITALS: BP 113/64
--- NOTE | 2018-02-24 11:01 | CP SOUTH PROGRESS NOTE PSYCH ---
Psych (Inpt) Progress Note Progress Note Include the following elements, when applicable: Involvement in the active treatment of the patient with behavioral observations of the patient and the patient's response to the treatment. Review of the ongoing treatment process in the context of the treatment plan. Indication of how multi-disciplinary staff members are carrying out the treatment plan. Plans for future interventions and recommendations for revision of the treatment plan. Liaison with other physicians/providers. Progress Note: More anxious and down today, stated that she feels negative and dark. Said that "people [place] don't [place], the police don't like me" and similar globalized paranoid/depressed statements about people in her past not liking her. Was able to speak about positives; We discussed times where she was doing well, when she got a job at [employer] and was caring for her children ; about treatment such as socialization, meds, groups, working etc being methods to reduce her overall symptoms and reduce preoccupation with neg thoughts. Was able to accept and receive feedback. MSE: pleasant woman, overweight, well groomed and with fair hygiene. Good eye contact. She is anxious and down. Her mood is depressed and affect is constricted, though she is able to perk up when discussing her children. Her speech is regular volume and rate. Her thinking is overall goal directed, mildly tangential but very redirectable. She has generalized negative thinking and mild paranoia about others in the past not liking her, but no gross delusional system. She is not suicidal or homicidal, nor is she internally preoccupied.. Insight and judgment both fair. A: 42 year old woman w/ plan to drive her car into something to kill self prior to admission, presented paranoid and disorganized. She is improving clinically however continues to have episodes of severe depression, anxiety, and guardedness. Plan: increased prolixin to 5mg twice daily yesterday, no issues w/ the increase. Continue support and current plan of care.
[2018-02-24 12:05] VITALS: BP 139/80
[2018-02-24 15:44] VITALS: BP 115/56
[2018-02-24 19:41] VITALS: BP 131/62
[2018-02-25 07:54] VITALS: BP 108/80
[2018-02-25 12:11] VITALS: BP 119/74
--- NOTE | 2018-02-25 15:28 | CP SOUTH PROGRESS NOTE PSYCH ---
Psych (Inpt) Progress Note Progress Note I reviewed the notes of the covering psychiatrist for the weekend. The patient's progress, treatment plan, and aftercare plans were discussed and updated in the treatment team meeting this morning. The treatment team included : RN, KAROLINA, Group Therapy/Activity Therapy and Art therapy staff, and psychiatrist. Vital Signs Date Time Temp Pulse B/P B/P Pulse O2 FiO2 02/25 1211 95 119/74 02/25 0754 96.5 86 108/80 02/24 1941 97.0 78 131/62 02/24 1544 88 115/56 Mental Status Examination: The patient's paranoid delusions required eliciting today (he did not come up spontaneously in conversation). She was alert & oriented to time, place, and person. She said she slept well last night. She was in good behavioral control. She was not fidgety or restless. She was a bit more talkative today, not tearful & seemed to have a reasonable range of affect. She reported that her mood is not that depressed. She denied thoughts of suicide. She denied hallucinations. She showed less coherence today with mild thought disorder. She seemed to have impaired attention and concentration today. Assessment: The patient is a 42-year-old single White female who was admitted to the inpatient psychiatric unit at [facility] on 02/15/2018 due to SI with plans to drive into a tree. On arrival to the emergency room, she had paranoid delusions. The patient has been homeless since October 2017. The patient is currently awaiting placement in a rehabilitation facility. Diagnosis (Updated 02/22/2018): F25.0: Schizoaffective Disorder, Bipolar type, multiple episodes, currently in acute episode. Treatment Plan Update: 1) reduce when necessary Ativan to 0.5 mg for anxiety and 1 mg at bedtime as needed for insomnia 2) restart Zyprexa 5 mg at bedtime 3) continue Fluphenazine 5 mg BID
[2018-02-25 16:10] VITALS: BP 122/83
--- NOTE | 2018-02-25 18:39 | SOCIAL WORKER PROG NOTE PSYCH ---
Social Work Progress Note Progress Note This procedure writer met with patient. Patient stated that she called [facility] and will call [facility] later today. Patient and this procedure writer spoke with Theresa at [facility] ([phone], ext. [phone]). We were informed that the patient is to engage in treatment. Patient continues to appear to be agreeable and motivated to engage in treatment , specifically inpatient treatment. Patient denied SI/HI/AH/VH. She identified how groups have been helpful on this unit.
[2018-02-25 19:54] VITALS: BP 100/56
[2018-02-26 08:38] VITALS: BP 121/77
--- NOTE | 2018-02-26 11:53 | SOCIAL WORKER PROG NOTE PSYCH ---
Social Work Progress Note Progress Note [address]ID STRE[address] [id number] [address] [id number] Pended Authorization # Client Authorization # Type of Request [id number] CONCURRENT Date of Admission/ Start of Services Requested From Submission Date 02/15/2018 02/26/2018 02/26/2018
[2018-02-26 12:01] VITALS: BP 136/78
--- NOTE | 2018-02-26 12:31 | CP SOUTH PROGRESS NOTE PSYCH ---
Psych (Inpt) Progress Note Progress Note The patient's progress, treatment plan, and aftercare plans were discussed and updated in the treatment team meeting this morning. The treatment team included : RN, KAROLINA, Group Therapy/Activity therapy staff, and psychiatrist. Vital Signs Date Time Temp Pulse B/P 02/26 1201 93 136/78 02/26 0838 97.9 95 121/77 Mental Status Examination: The patient was alert & oriented to time, place, and person. She said she slept well last night. She was in good behavioral control. The patient showed reasonably normal psychomotor activity/was not fidgety or restless. She was alkative but not pressured. Today, not tearful & seemed to have a reasonable range of affect. She reported that her mood is not that depressed. She denied thoughts of suicide. She did not bring up paranoid delusions spontaneously today. She denied hallucinations. She was--for the most part--coherent with only a mild thought disorder. Slightly impaired attention and concentration today. Assessment: Tawanda is a 42-year-old single White female who was admitted to the inpatient psychiatric unit on 02/15/2018 due to thoughts about suicide with a plan to drive into a tree. On arrival to the emergency room, she had paranoid delusions. The patient has been homeless since October 2017. The patient is currently awaiting placement in a rehabilitation facility. She is showing slow but the consistent improvement both in mood as well as in the psychotic realm. And she has been denying thoughts of suicide over the weekend and the past couple of days Diagnosis (Updated 02/22/2018): F25.0: Schizoaffective Disorder, Bipolar type, multiple episodes, currently in acute episode. Treatment Plan Update: 1) Zyprexa 5 mg at bedtime 2) Continue PRN Ativan 1 mg at bedtime as needed for sleep 3) continue Fluphenazine 5 mg BID
[2018-02-26 16:05] VITALS: BP 121/74
--- NOTE | 2018-02-26 16:49 | SOCIAL WORKER PROG NOTE PSYCH ---
Social Work Progress Note Progress Note This technical proposal writer met with patient. She stated that she called [facility] and [facility] today. She stated that she spoke with Julio at [facility] and completed a phone screening. Patient discussed feeling sad about being back in the hospital , however, hopeful about the efforts to enter rehab. "Sometimes I feel like crying." Patient stated that while she feels supported by staff on [facility], she finds herself crying alone in her room at times. Patient was encouraged to utilize staff support and avoid isolation. She discussed finding the groups as helpful. Patient was agreeable to this technical proposal writer contact [facility] and [facility] to inquire about her status on the waiting list. [facility] - a vm was left at 3:58pm requesting a call back with call back number [facility] - This technical proposal writer spoke with Catalina who requested updated progress notes and the initial assessment; Catalina confirmed that the patient completed a phone screening today.
[2018-02-26 20:18] VITALS: BP 121/80
[2018-02-27 07:57] VITALS: BP 132/83
[2018-02-27 12:24] VITALS: BP 141/76
--- NOTE | 2018-02-27 13:55 | CP SOUTH PROGRESS NOTE PSYCH ---
Psych (Inpt) Progress Note Progress Note The patient's progress, treatment plan, and aftercare plans were discussed and updated in the treatment team meeting this morning. The treatment team included : RN, CRIMPING MACHINE OPERATOR, Group Therapy/Activity therapy staff, and psychiatrist. Vital Signs Vital Signs Date Time Temp Pulse B/P Pulse O2 O2 Flow FiO2 02/27 1224 77 141/76 02/27 0757 97.8 99 132/83 02/26 2018 97.0 73 121/80 Mental Status Examination: Tawanda seemed to be in good spirits today. She exhibited bright and full range affect. She was coherent and did not voice any delusions today. She said she slept well last night. She was in good behavioral control. The patient was alert & oriented to time, place, and person. She showed normal psychomotor activity and was not fidgety or restless. She spoke at a normal pace today and she was not talkative and not pressured. She reported that she has been in a good mood and denied feeling hopeless, denied wishing and denied thoughts of suicide. She denied hallucinations. She coherent with only slightly impaired attention and concentration. Assessment Update: Tawanda is a 42-year-old single White female who was admitted to the inpatient psychiatric unit on 02/15/2018 due to thoughts about driving her car into a tree (she was living in her car at the time). Tawanda continues to show consistent improvement both in mood as well as in psychotic symptoms. she has been denying thoughts of suicide for > 5 days and her delusions are no longer part of her spontaneous conversation. Diagnosis (Updated 02/22/2018): F25.0: Schizoaffective Disorder, Bipolar type, multiple episodes, in an acute episode. Treatment Plan Update: 1) Continue Zyprexa 5 mg at bedtime 2) Reduce PRN Ativan to 0.5 mg at bedtime as needed for sleep 3) continue Fluphenazine 5 mg BID
[2018-02-27 15:59] VITALS: BP 134/76
--- NOTE | 2018-02-27 17:08 | SOCIAL WORKER PROG NOTE PSYCH ---
Social Work Progress Note Progress Note This handbook writer spoke with Cristy at [facility] by phone. At her inquiry, she was informed that the patient remains on the waiting lists for [facility]. This handbook writer met with patient. She stated that she called [facility] and [facility] today and that they were requesting additional records. Patient described her mood as "depressed about being in the hospital." This handbook writer and patient discussed progress that she has made and efforts to engage in treatment. She acknowledged this and was able to give herself credit. She denied SI/HI/AH/VH. [facility] - this handbook writer spoke with Fab at the admissions office. She stated that a bed may be available on Sunday and instructed this handbook writer to call at that time. Initial Assessment (Psychiatric Admission note) and Psychiatrist Progress Notes (02/27, 02/26) were faxed to [facility] at [phone] [facility] - a vm was left for the admissions office with a call back number for this handbook writer
[2018-02-27 19:32] VITALS: BP 119/73
[2018-02-28 07:42] VITALS: BP 129/81
[2018-02-28 12:11] VITALS: BP 137/66
--- NOTE | 2018-02-28 13:57 | SOCIAL WORKER PROG NOTE PSYCH ---
Social Work Progress Note Progress Note [address]ID ST[address] [id number] [address] [id number] Pended Authorization # Client Authorization # Type of Request [id number] CONCURRENT Date of Admission/ Start of Services Requested From Submission Date 02/15/2018 02/28/2018 02/28/2018
--- NOTE | 2018-02-28 15:03 | CP SOUTH PROGRESS NOTE PSYCH ---
Psych (Inpt) Progress Note Progress Note The patient's progress, treatment plan, and aftercare plans were discussed and updated in the treatment team meeting this morning. The treatment team included : RN, SUPERVISOR SAMPLE PREPARATION, Group Therapy/Activity therapy staff, and psychiatrist. Vital Signs Date Time Temp Pulse B/P B/P O2 FiO2 02/28 1211 80 137/66 05 0742 97.4 88 129/81 05/ 1932 97.6 76 119/73 Mental Status Examination: The patient: was alert & oriented to time, place, and person. seemed to be in good spirits today. exhibited bright and full range affect. was coherent and did not voice any delusions today. said she slept well last night. was in good behavioral control. showed normal psychomotor activity/not fidgety or restless. spoke at a normal pace today and she was not talkative and not pressured. reported that she has been in a good mood and denied feeling hopeless, denied wishing and denied thoughts of suicide. She denied hallucinations. was coherent with only slightly impaired attention and concentration. Assessment Update: Tawanda is a 42-year-old single White female who was admitted to the inpatient psychiatric unit on 02/15/2018 due to thoughts about driving her car into a tree (she was living in her car at the time). Tawanda continues to show consistent improvement both in mood as well as in psychotic symptoms. she has been denying thoughts of suicide for > 5 days and her delusions are no longer part of her spontaneous conversation. Diagnosis (Updated 02/22/2018): F25.0: Schizoaffective Disorder, Bipolar type, multiple episodes, in an acute episode. Treatment Plan Update: 1) Continue Zyprexa 5 mg at bedtime 2) PRN Ativan 0.5 mg at bedtime as needed for sleep 3) continue Fluphenazine 5 mg BID
[2018-02-28 15:50] VITALS: BP 121/71
--- NOTE | 2018-02-28 17:51 | SOCIAL WORKER PROG NOTE PSYCH ---
Social Work Progress Note Progress Note This publicity writer met with patient. She described her mood as feeling down due to depression. She discussed frustration with herself regarding a previous relationship that was not healthy. Patient was tearful as she discussed sadness related to being in the hospital. This publicity writer provided support to the patient and assisted her in identifying the postive steps she is currenlty making towards supporting her recovery. Patient denied SI/HI/AH/VH. Patient was informed that this publicity writer would continue to try to reach [facility]. This publicity writer spoke with Cristy from [facility] and informed her that a bed is not yet available. This publicity writer spoke with Rashi, nurse at [facility], who requested a referral for the patient as they currently only have one from her previous hospitalization. History and Physical, Social, Diagnostic Assessment, Initial Assessment and Medication List were faxed to [facility] at [phone] at 1706 today.
[2018-02-28 19:37] VITALS: BP 113/71
[2018-03-01 07:33] VITALS: BP 137/68
--- NOTE | 2018-03-01 11:57 | CP SOUTH PROGRESS NOTE PSYCH ---
See Addendum Psych (Inpt) Progress Note Progress Note The patient's progress, treatment plan, and aftercare plans were discussed and updated in the treatment team meeting this morning. The treatment team included : RN, KAROLINA, Group Therapy/Activity therapy staff, and psychiatrist. Vital Signs Date Time Temp Pulse B/P B/P O2 02/28 1211 80 137/66 02/28 0742 97.4 88 129/81 05 1932 97.6 76 119/73 Mental Status Examination: The patient reported that she is feeling anxious about the discharge Sunday to [facility]. She said she was anxious because of what she heard about the place from other patients. She did ask about something for anxiety long-term sensory and be discontinuing the Ativan before her discharge to the rehabilitation program. I explained to her the previous challenge with Zoloft recently and we discussed re-challenging her with it and observe for any resurfacing of any abnormal symptoms or behaviors. She was alert & oriented to time, place, and person. The patient seemed to be slightly anxious today, slightly constricted in her affect compared to the previous days. She was coherent and did not voice any delusions today. When I asked her specifically about paranoia about her last boyfriend's family, she seemed nervous and said that she didn't want to talk about it. Then she added that she things that she might not be able to stop thinking about him until she gets another boyfriend. said she slept well last night, she was in good behavioral control. She showed normal psychomotor activity/not fidgety or restless. The patient spoke at a normal pace today and she was not talkative and not pressured. She denied wishing and denied thoughts of suicide. She denied hallucinations. was coherent with only slightly impaired attention and concentration. Assessment Update: Tawanda is a 42-year-old single White female who was admitted to the inpatient psychiatric unit on 02/15/2018 due to thoughts about driving her car into a tree (she was living in her car at the time). Tawanda continues to show consistent improvement both in mood as well as in psychotic symptoms. " He was so anxious about the plan to go to [facility] in [place] and she reported that's because of what she heard about the place from other patients. Diagnosis (Updated 02/22/2018): F25.0: Schizoaffective Disorder, Bipolar type, multiple episodes, in an acute episode. Treatment Plan Update: 1) Continue Zyprexa 5 mg at bedtime for 2 more days, I believe that it can be safely discontinued after that and since she is on a reasonable dose of fluphenazine for a few days now, the reason for the transition is the patient's history of noncompliance because of weight gain with these medications 2) D/C PRN Ativan 0.5 mg at bedtime 3) continue Fluphenazine 5 mg BID Will add when necessary trazodone because the patient is fearful that she might not be able to sleep after discontinuing the Ativan Most likely will be discharged Sunday to a rehabilitation in [facility]
[2018-03-01 12:10] VITALS: BP 124/73
[2018-03-01 15:55] VITALS: BP 106/57
--- NOTE | 2018-03-01 16:46 | SOCIAL WORKER PROG NOTE PSYCH ---
Social Work Progress Note Progress Note SW completed online review for continued inpatient treatment. Pending [id number]
--- NOTE | 2018-03-01 16:48 | SOCIAL WORKER PROG NOTE PSYCH ---
Social Work Progress Note Progress Note This gag writer spoke with Esmer at [facility]. Esmer stated that the patient would be accepted as long as she is not prescribed BZD's following discharge as this would require that she go to detox first. This gag writer spoke with Dr. Hill who stated that she is being tapered off of the Ativan and that she will not be taking Ativan following discharge. Message was relayed to Esmer who stated that the patient may be admitted to their program on 03/04/18. This gag writer met with patient. She described her mood as "a little down" in reference to being in the hospital. Patient was informed that this gag writer spoke with Esmer at [facility] and, as long as patient will not be taking Ativan (or BZD's) after discharge, then she will be accepted to the program on Sunday. This gag writer assisted patient in processing emotions to this. While hopeful , she was also anxious and had several questions. This gag writer provided support as she called [facility] and spoke with Esmer regarding her questions. This gag writer received a call from [facility] later in the afternoon stating that they have beds as well. This gag writer left a vm for [facility], however, did not receive a return call. This gag writer spoke with Laureen at [facility] who stated that she would like to conduct a phone screening with the patient. Laureen contacted this gag writer shortly after who apologized as they do not accept the patient's insurance. She stated that the patient may be able to contact [facility] to inquire about changing her insurance. This was relayed to the patient who stated that she will stay with the plan of going to [facility] on Sunday. Patient was also aware of the message received from [facility] and this gag writer's attempt to reach them and will be informed if this gag writer receives a response.
[2018-03-01 19:52] VITALS: BP 135/84
[2018-03-02 08:10] VITALS: BP 125/75
[2018-03-02 12:11] VITALS: BP 108/75
--- NOTE | 2018-03-02 15:11 | CP SOUTH PROGRESS NOTE PSYCH ---
Psych (Inpt) Progress Note Progress Note Include the following elements, when applicable: Involvement in the active treatment of the patient with behavioral observations of the patient and the patient's response to the treatment. Review of the ongoing treatment process in the context of the treatment plan. Indication of how multi-disciplinary staff members are carrying out the treatment plan. Plans for future interventions and recommendations for revision of the treatment plan. Liaison with other physicians/providers. Progress Note: The patient is a 42-year-old white woman admitted on 02/15/18. She carries the diagnosis schizoaffective disorder, bipolar type. She is known to me from her prior treatment here. Current medication list reviewed. Of note, the patient is on 2 neuroleptics, olanzapine 5 mg q. 8 PM and fluphenazine [address] Hill indicated that Zyprexa could be discontinued after a couple of days, so I will stop it tonight. Case discussed with nursing staff. Nurse reports that the patient looks well. Possibly discharging on Sunday. Patient is coming off of Ativan. Described as calm. Denying suicidal ideation. Does not appear depressed. Patient seen at 10:55 AM. States "well, I'm back here Dr. Cortés." States she is off Ativan. Reports she is going to [facility] on Sunday. Appears awake and alert, calm and blunted. Asking what she can do to prevent readmission here. She asked me how she can forget an old love. States that he forgot her and his family put protective orders in place against her. Reports mood is okay, not great, like 3/10 with 10 being best. Rates sad mood probably about 7/10 with 10 being worst. Rates anxiety probably like a 6/10 with 10 being worst. States she has not seen her kids (except for her oldest daughter) in a long time. Denies feeling hopeless. Feels helpless and worthless sometimes. Denies feeling guilty. Denies active and passive suicidal ideation. Denies homicidal ideation. Denies auditory and visual hallucinations and paranoid ideation. Reports sleep and appetite are good. Describes energy as so-so. Tolerating medications well, without complaint. IMPRESSION: Slow progress. Continue present treatment plan. Anticipate likely discharge early next week.
[2018-03-02 15:59] VITALS: BP 130/68
[2018-03-02 19:50] VITALS: BP 119/75
[2018-03-03 08:33] VITALS: BP 124/86
[2018-03-03 12:28] VITALS: BP 111/65
--- NOTE | 2018-03-03 15:47 | CP SOUTH PROGRESS NOTE PSYCH ---
Psych (Inpt) Progress Note Progress Note Include the following elements, when applicable: Involvement in the active treatment of the patient with behavioral observations of the patient and the patient's response to the treatment. Review of the ongoing treatment process in the context of the treatment plan. Indication of how multi-disciplinary staff members are carrying out the treatment plan. Plans for future interventions and recommendations for revision of the treatment plan. Liaison with other physicians/providers. Progress Note: Case discussed with nurse. Nurse reports that the patient slept well. Vital signs stable. Denying pain and denying suicidal ideation. Reported that Neurontin was helpful for anxiety. Patient seen at 9:44 AM. Reports doing well. I informed the patient that Zyprexa was stopped last night. Reports Neurontin is helping a little bit with anxiety but finds it to be not as good as Ativan. Affect is calm and euthymic. Reports mood is "okay, you know, so-so." Rates sad mood and anxiety both 5/10. Feels hopeless, helpless, worthless and guilty "a little bit." Reports having suicidal ideation a little bit, just wanting life to be different. Does not really want to . Wants to be a mother again and a daughter and be a normal person and not live in the hospital. Gives a safety promise for here. Denies homicidal ideation. Denies auditory and visual hallucinations and paranoid ideation. Reports she slept well. Appetite is so-so. Energy is so-so. Then stated "energy is right in the middle, Dr. Cortés." Tolerating medications well, without complaint. IMPRESSION: Slow progress. Continue present treatment plan. Discharge is anticipated for tomorrow.
[2018-03-03 16:01] VITALS: BP 125/69
[2018-03-03 19:49] VITALS: BP 121/65
[2018-03-04 07:38] VITALS: BP 126/90
--- NOTE | 2018-03-04 11:20 | SOCIAL WORKER PROG NOTE PSYCH ---
Social Work Progress Note Progress Note Bal Riddle APRN, Mohammed (medical student) and this copy writer met with patient. Patient was agreeable to discharge with the plan to go to [facility] today. She denied SI/HI/AH/VH. "I have a safety plan. I can call 911, or tell my counselor at [facility]. I feel safe now." Patient stated that she had some difficulty sleeping last night due to anxiety about going to a new program today ([facility]) and discharging from [facility]. She identified a safety plan to call 911 and speak with her counselor. This copy writer spoke with Esmer at [facility] ([phone]). Medication list was reviewed. She confirmed that they are still accepting Tawanda today for admission into their inpatient/rehab. She stated that patient may be transported to their facility via safe means, such as [facility]. [facility] may be utilized if [facility] cannot provide transportation. She requested that the W10 with medication list is faxed to [facility] upon discharge and that medications will be filled at their pharmacy. Esmer stated that aftercare will be scheduled and identified while patient is in rehab and that they are planning for "a more lengthy aftercare" to further support the patient upon discharge from [facility]. This copy writer provided Esmer with the following information: 1. 24 hour/7 day contact: Dr. Cortés, 2. Contact information for obtaining results of studies pending at discharge: Dr. Cortés, 3. Plan for follow up care: (Patient will be admitted to [facility] inpatient program)Esmer was informed of the IOP through and provided with their phone number 4. Primary physician (at [facility]): Dr. Macedo or Dr. Salgado This copy writer spoke with Santa at [facility] to schedule a ride ([phone]). Patient was in agreement. Faxed Referral(s) Referred To: [facility] Transition of Care Documents sent: Health Summary, W10 Faxed to: [facility] Fax #: [phone] Faxed by: Bear Harper LCSW Date faxed: 03/04/18 Time Faxed: [phone]
[2018-03-04] MEDS ORDERED: FLUPHENAZINE HCL5 M1 PO (11:49)
[2018-03-04] MEDS ORDERED: GABAPENTIN300 M2 PO (11:49)
[2018-03-04] MEDS ORDERED: NICORELIEF2 MG PO (11:49)
[2018-03-04] MEDS ORDERED: SERTRALINE HCL50 MG PO (11:49)
--- NOTE | 2018-03-04 12:04 | DISCHARGE SUMMARY REPORT-PSYCH ---
Visit Information Visit Dates/Diagnosis' Admission Date: 02/15/18 Discharge Date: 03/04/18 Reason for Admission: Tawanda is a 42-year-old single White female who was admitted to the inpatient psychiatric unit on 02/15/2018 due to thoughts about suicide with a plan to drive into a tree. On arrival to the emergency room, she had paranoid delusions. The patient has been homeless since October 2017. Psy Discharge Primary Diag: F25.0 Schizoaffective d/o Bipolar Type Psy Discharge Secondary Diag: Migraine, AVM, hypoglycemia Hospital Course Significant Lab Findings: Lab Eosinophils % 5.7 % H 02/17/18 0604 Hct 36.9 % L 02/17/18 0604 MCH 32.4 PG H 02/17/18 0604 RBC 4.18 /CUMM L 02/15/18 1619 RBC 3.87 /CUMM L 02/17/18 0604 Course Complications: None Consultations: Patient was seen for admission history and physical by Dr. Toscano. Please refer to the H&P for additional information. Allergies: Coded Allergies: haloperidol (From HALDOL) ("seizure like coma sleep" 11/07/17) Uncoded Allergies: DOG SHAMPOO (HIVES AND ITCHING ALL OVER 03/31/15) Hospital Course/TX Response: The patient was monitored on the unit for safety, paranoid ideation, delusions, and suicidal ideation. She participated in multimodal treatments on the unit. She was treated with sertraline for depression and anxiety, gabapentin as needed for anxiety, trazodone at bedtime for sleep, and with fluphenazine twice daily for clear thoughts. Today, the day of discharge, she stated "I have a safety plan. I can call 911, or tell my counselor at [facility]. I feel safe now." She presents as calm, cooperative and pleasant. Alert and oriented to person, place, time and situation. States that she is looking forward to going to [facility], however has some apprehension as this will be a new place for her. Patient verbalizes understanding that she needs to continue taking her medications as directed, and to maintain sobriety. Patient states that she understands the need to do these things so she can maintain a relationship with her children. Depression:5/10; Anxiety:5/10 (with 10 the worst.) Denies suicidal ideation, homicidal ideation, auditory hallucinations, visual hallucinations, paranoid ideation. Patient reports sleeping approximately 7 hours at night, states she is sleeping well. States that her appetite, energy, and interest are all fine. Her concentration is okay. Speech is well articulated, goal-directed, average in rate, volume and tone. The patient understands the risks/benefits/side effects of the medication and is agreeable to continue taking them. She reports tolerating her medications well, without complaint. States she feels safe and ready for discharge to [facility]. Discharge HBIPS - Tobacco Use Treatment Offered Post DC Medications Offered: Script Given-See Med List Post DC Tobacco Treatment Plan: [facility] Program Appt Date: 03/13/18 Program Appt Time: 1600 - EtOH/Drug Use D/O Treatment Offered Post DC Medications Offered: NA-No EtOH/Drug Use D/O Post DC EtOH/SubAbuse TX Plan: NA-No EtOH/Drug Use D/O Metabolic Screening - Screen if on a Neuroleptic Medication - Metabolic screening should include: - Blood Pressure, BMI, Glucose or Hgb A1c, & a - Lipid profile from within the past 365 days. Metabolic Screening () Not Applicable, patient not on a neuroleptic. OR ([x]) Patient on a neuroleptic(s) . Enter below results for Hemoglobin A1C, and lipid panel if obtained during the last 365 days. BMI: 34.100 Blood Pressure: 116/93 Laboratory Results From [facility] (If applicable): Lab Cholesterol 273 MG/DL H 10/17/17 2144 Cholesterol/HDL Ratio 6 % H 10/17/172143 HDL Cholesterol 44 mg/dL 10/17/17 2144 Hemoglobin A1c 5.7 % 05/05/17 0525 LDL Cholesterol, Calc 188 mg/dL H 10/17/17 2144 Triglycerides 205 mg/dL H 10/17/17 2144 Discharge Instructions General Discharge Information Multiple Neuroleptics: ([x]) Not Applicable OR Document below three failed attempts at monotherapy, or a plan to taper to monotherapy, or augmentation of Clozapine. () Discharge Diet Regular Discharge Activity Normal DC Disposition: Patient will attend a 45 day residential rehab at [facility] starting today. Referrals Ordered Referrals Provider Referral 03/04/18 For Groups: [[facility]] [address], [place] [phone] Patient will be transported to [facility] today by [facility] ([phone]). Provider Referral 03/13/18 For Groups: [[facility]] [facility] [address] [facility], [place] [phone] Group meets every other Sunday at 4pm Next group: 03/13/18, at 4pm Prescriptions Stop taking the following medications: Lamotrigine (Lamictal) 25 MG TABLET ORAL DAILY Qty = 14 Quetiapine Fumarate (Seroquel) 200 MG TABLET ORAL AT BEDTIME Qty = 14 Mirtazapine (Mirtazapine) 15 MG TABLET ORAL Every night Qty = 14 Continue taking these medications: Trazodone HCl (Trazodone HCl) 50 MG TABLET 1 Tablet ORAL Every night Qty = 14 Comments: Last Taken:TO START AT HOME UPON DISCHARGE Time: Start taking the following new medications: Nicotine (Nicorelief) 2 MG GUM 2 Milligram ORAL EVERY 2 HOURS NEEDED as needed for smoking cessation Qty = 30 No Refills Comments: Last Taken:03/02/18 Time:1630 Gabapentin (Gabapentin) 300 MG CAPSULE 300 Milligram ORAL THREE TIMES A DAY NEEDED as needed for ANXIETY Qty = 42 No Refills Comments: Last Taken:03/04/18 Time:0800 Sertraline HCl (Sertraline HCl) 50 MG TABLET 50 Milligram ORAL DAILY Qty = 15 No Refills Comments: Last Taken:03/04/18 Time:0800 Fluphenazine HCl (Fluphenazine HCl) 5 MG TABLET 5 Milligram ORAL TWICE DAILY Qty = 30 No Refills Comments: Last Taken:03/04/18 Time:0800 Other Inst/Recommendations Maintain sobriety. Take medications as directed. Follow up at [facility]. Studies Pending at Discharge None Copies To: [facility]
--- NOTE | 2018-03-04 12:04 | Patient Discharge Instructions ---
Psych Discharge Inst General Discharge Information Reason for Admission: Tawanda is a 42-year-old single White female who was admitted to the inpatient psychiatric unit on 02/15/2018 due to thoughts about suicide with a plan to drive into a tree. On arrival to the emergency room, she had paranoid delusions. The patient has been homeless since October 2017. Psy Discharge Primary Diag+ F25.0 Schizoaffective d/o Bipolar Type Psy Discharge Secondary Diag+ Migraine, AVM, hypoglycemia Summary Tests/Major Procedures Routine Labs. Studies Pending at DC: None Patient Instructions Contact Information Your Psychiatrist on [facility] was Andres Cortés MD * If you are experiencing an emergency related to this hospitalization, please call [phone] to contact the treating psychiatrist or the psychiatrist-on- call. * To Request a copy of your medical records, please contact the Medical Records Department at [phone]. * To request results of studies pending at the time of discharge, please call [phone]. * Continue your Medications until directed to stop by your Healthcare provider. General Medication Information Please continue to take your new medications and your continued home medications , unless otherwise indicated on your discharge medication list, or unless directed by your MD or AIRCRA[employer] STRU[employer]URAL [employer]TER to stop them. Special Instructions Diet Regular Activity Normal Other Inst/Recommendations Maintain sobriety. Take medications as directed. Follow up at [facility]. - Tobacco Use Treatment Offered Post DC Medications Offered: Script Given-See Med List Post DC Tobacco Treatment Plan: [facility] Program Appt Date: 03/13/18 Program Appt Time: 1600 - EtOH/Drug Use D/O Treatment Offered Post DC Medications Offered: NA-No EtOH/Drug Use D/O Post DC EtOH/SubAbuse TX Plan: NA-No EtOH/Drug Use D/O Metabolic Screening () Not Applicable, patient not on a neuroleptic. OR ([x]) Patient on a neuroleptic(s) . Enter below results for Hemoglobin A1C, and lipid panel if obtained during the last 365 days. BMI: 34.100 Blood Pressure: 126/90 Laboratory Results From [facility] (If applicable): Lab Cholesterol 273 MG/DL H 10/17/172143 Cholesterol/HDL Ratio 6 % H 10/17/172143 HDL Cholesterol 44 mg/dL 12/20/17 2144 Hemoglobin A1c 5.7 % 05/05/17 0525 LDL Cholesterol, Calc 188 mg/dL H 10/17/17 2144 Triglycerides 205 mg/dL H 10/17/17 2144 Advance Directives Does the Patient have Medical Advance Directives No/Refused further info Does Pt have Psychiatric Advance Directives? No/Refused further info Does Patient have a Designated Surrogate Decision Maker: No Information About Psychiatric Advance Directives Provided? Refused Discharge Plan Post Hospital Treatment Plan: Patient will follow up today at [facility].
[2018-03-04 12:10] VITALS: BP 116/93
--- NOTE | 2018-03-04 13:11 | CP SOUTH PROGRESS NOTE PSYCH ---
Psych (Inpt) Progress Note Progress Note Include the following elements, when applicable: Involvement in the active treatment of the patient with behavioral observations of the patient and the patient's response to the treatment. Review of the ongoing treatment process in the context of the treatment plan. Indication of how multi-disciplinary staff members are carrying out the treatment plan. Plans for future interventions and recommendations for revision of the treatment plan. Liaison with other physicians/providers. Progress Note: I discussed this patient's progress to date, current mental status, treatment process in the context of the treatment plan, and discharge planning with staff/ team in the daily morning inpatient team meeting. I also met with the patient myself in individual session. A total of 30 minutes was spent with the patient with more than 50% spent in counseling and/or coordination of care. SUBJECTIVE: "I have a safety plan. I can call 911, or tell my counselor at [facility]. I feels safe now." OBJECTIVE: Current Medications Sig/Yaneth Start time Last Medication Dose Route Stop Time Status Admin Al Hydroxide/Mg 30 ML Q4-6 PRN PRN 02/15 2015 AC Hydroxide PO Fluphenazine HCl 5 MG BID 02/23 2100 AC 03/04 PO 0757 Gabapentin 300 MG Q6P PRN 03/02 1915 AC 03/04 PO 0757 Ibuprofen 400 MG Q6P PRN 02/15 2015 AC PO Nicotine 2 MG Q2 HRS NEEDED PRN 02/15 2015 AC 03/02 PO 1635 Sertraline HCl 50 MG DAILY 03/01 1256 AC 03/04 PO 0756 Trazodone HCl 50 MG AT BEDTIME NEED.. 03/01 1300 AC PO Vital Signs Date Time Temp Pulse Resp B/P B/P Pulse O2 O2 Flow FiO2 Mean Ox Delivery Rate 03/04 1210 84 116/93 03/04 0738 96.5 80 126/90 03/03 1949 98.3 68 121/65 / 1601 77 125/69 ASSESSMENT: This my first time visiting with this patient during this admission, she is scheduled to discharge today and will start a 45 day program at [facility]/ [facility] today, immediately after discharge. Patient presents as calm, cooperative and pleasant. Alert and oriented to person, place, time and situation. States that she is looking forward to going to [facility], however has some apprehension as this will be a new place for her. Patient verbalizes understanding that she needs to continue taking her medications as directed, and to maintain sobriety. Patient states that she understands the need to do these things so she can maintain a relationship with her children. Depression:5/10; Anxiety:5/10 (with 10 the worst.) Denies suicidal ideation, homicidal ideation, auditory hallucinations, visual hallucinations, paranoid ideation. Patient reports sleeping approximately 7 hours at night, states she is sleeping well. States that her appetite, energy, and interest are all fine. Her concentration is okay. Speech is well articulated, goal-directed, average in rate, volume and tone. The patient understands the risks/benefits/side effects of the medication and is agreeable to continue taking them. PLAN: Patient will discharge today, and go directly to [facility] for 45 day rehab. Continue with current management as patient is improving. Continue to provide support and encouragement.
--- NOTE | 2018-03-13 16:53 | SOCIAL WORKER PROG NOTE PSYCH ---
Social Work Progress Note Progress Note Note created in error.
== END 2018-03-04 15:00 | DRG 885 ==
LOC: ERH 15:50 → CP SOUTH 20:50 → ERHI 20:50 → ENTRNSPT 21:04 → EDTRNSPTSTS 21:10 → EDTRNSPT 21:10 → CMPTRNSPT 21:25 → CP SOUTH 21:46
PROVIDERS: Hospitalist; Physician Assistant
DX: F25.0 Schizoaffective disorder, bipolar type (principal); E16.2 Hypoglycemia, unspecified; G43.909 Migraine, unspecified, not intractable, without status migrainosus
CPT/HCPCS: 36415; 80307; 81001; 81025; 93005; 93010; G0480; J3490